=== PATIENT | female | born 1985 | race Caucasian/White ===

== ENCOUNTER 2017-08-18 21:30 | Emergency (ER) | payer MEDICAID, SELFPAY ==
[2017-08-18 21:31] VITALS: BP 106/65; PULSE 89; RESP 16; TEMP 36.6; O2SAT 100; BMI 18.9
[2017-08-18 21:44] VITALS: BP 110/60; PULSE 90; RESP 14; O2SAT 100
--- NOTE | 2017-08-18 22:02 | ED.VISSUMM ---
- ER Visit Summary Date of Service: 08/18/17 Chief Complaint: Left breast pain and lump History of Present Illness: The patient is a 32 F who presents with a painful breast lump. She first noticed some pain yesterday. Today while doing a self breast exam she noticed a lump. No nipple discharge. No overlying redness. No fevers. No history of prior similar symptoms. Physical Examination: Afebrile vitals are unremarkable Heart regular rate and rhythm Lungs are clear There is a roughly 2 cm mobile firm nodule in the left upper quadrant of the breast no fluctuance no overlying erythema no nipple discharge Test Results: Not indicated Emergency Department Course and Treatment: Given that this is firm and mobile within the deep tissue of the breast without any fluctuance or overlying erythema I feel it is unlikely to be abscess. There is no indication for emergent workup here in the emergency department. She was advised of the need for close outpatient follow-up for studies such as mammogram or breast ultrasound. She was advised to call her SOFTWARE QUALITY ASSURANCE ANALYST in the morning. She understands to return for new or worsening symptoms. She was discharged. Treatment Plan: [] Disposition: Discharge Impression: Left breast mass This note was generated with [employer] dictation software. It may contain incorrect words, spelling, and punctuation that were not noted in review of the chart prior to signing ED Disposition - Plan for ED Patient: Chief Complaint: Other, Pain/Inj Referrals: Derek Gomez MD [Primary Care Provider] -
--- NOTE | 2017-08-18 22:05 | ED.DCSUM_ITS ---
- ER Visit Summary Date of Service: 08/18/17 Chief Complaint: Left breast pain and lump History of Present Illness: The patient is a 32 F who presents with a painful breast lump. She first noticed some pain yesterday. Today while doing a self breast exam she noticed a lump. No nipple discharge. No overlying redness. No fevers. No history of prior similar symptoms. Physical Examination: Afebrile vitals are unremarkable Heart regular rate and rhythm Lungs are clear There is a roughly 2 cm mobile firm nodule in the left upper quadrant of the breast no fluctuance no overlying erythema no nipple discharge Test Results: Not indicated Emergency Department Course and Treatment: Given that this is firm and mobile within the deep tissue of the breast without any fluctuance or overlying erythema I feel it is unlikely to be abscess. There is no indication for emergent workup here in the emergency department. She was advised of the need for close outpatient follow-up for studies such as mammogram or breast ultrasound. She was advised to call her WIRE PULLER in the morning. She understands to return for new or worsening symptoms. She was discharged. Treatment Plan: [] Disposition: Discharge Impression: Left breast mass This note was generated with [employer] dictation software. It may contain incorrect words, spelling, and punctuation that were not noted in review of the chart prior to signing ED Disposition - Plan for ED Patient: Chief Complaint: Other, Pain/Inj Referrals: Derek Gomez MD [Primary Care Provider] -
--- NOTE | 2017-08-18 22:05 | ED.DEP ---
ED Disposition - Plan for ED Patient: Chief Complaint: Other, Pain/Inj Instructions: ED Breast Mass Uncertain Cause Referrals: Derek Gomez MD [Primary Care Provider] - Additional Instructions: Follow up with [facility].
[2017-08-18 22:14] VITALS: BP 128/70; PULSE 80; RESP 14; O2SAT 99
== END 2017-08-18 22:16 | disposition home or self-care (01) ==
PROVIDERS: Emergency Provider Emergency Medicine; Family Provider Family Medicine; PCP Family Medicine
DX: N63.20 Unspecified lump in the left breast, unspecified quadrant (principal); J44.9 Chronic obstructive pulmonary disease, unspecified; Z72.0 Tobacco use
CPT/HCPCS: 99282

== ENCOUNTER 2017-08-31 17:05 | Emergency (ER) | payer MEDICAID, SELFPAY ==
[2017-08-31 17:07] VITALS: BP 114/75; PULSE 89; RESP 14; TEMP 36.8; O2SAT 100; BMI 19.1
--- NOTE | 2017-08-31 18:07 | ED.VISSUMM ---
- ER Visit Summary Date of Service: 08/31/17 Chief Complaint: [Dental pain and hole in roof of mouth] History of Present Illness: The patient is a 32 F presents to the emergency department with 2 complaints involving her mouth. Patient has one remaining tooth in her mouth which is a left lower molar that has become tender today. Patient denies any fever. Patient also states that 2 days ago she noticed a small hole in the right upper roof of her mouth. Patient states that every time she drinks water it comes out her nose. Patient denies any trauma to the area. Patient denies any illicit drug use. Patient is never had a similar issue in the past. [] Physical Examination: [HEENT-PERRLA, EOMI. Cranial nerves II through XII grossly intact. TMs clear. Mucous membranes moist. No adenopathy. Patient has a 2 mm perforation of the hard palate behind the right front incisor. Patient has some faint surrounding erythema. Patient also has tenderness palpation over the left lower molar which appears to be carried. No gingival abscess noted. Cardiovascular-regular rate and rhythm without murmur or ectopy Lungs-clear to auscultation, chest wall stable without crepitus or subcu emphysema Abdomen-normoactive bowel sounds, soft, nontender, no rebound or rigidity, no peritoneal signs. Extremities-intact ?4, normal range of motion, normal pulses, atraumatic] Test Results: [None indicated] Emergency Department Course and Treatment: [Case was discussed with Dr. Husam Peña who was on-call for ear nose and throat. Patient has an appointment with their office on the 12th of the month. Dr. Parmar recommended antibiotics and follow-up with their office at scheduled appointment time.] Treatment Plan: [Patient was started on clindamycin and [place] for pain] Disposition: [Discharged to home in stable condition.] Impression: [Dental pain Perforation hard palate] This note was generated with [employer] dictation software. It may contain incorrect words, spelling, and punctuation that were not noted in review of the chart prior to signing ED Disposition - Plan for ED Patient: Chief Complaint: Dental Referrals: Derek Gomez MD [Primary Care Provider] -
--- NOTE | 2017-08-31 18:11 | DCINST.ED_ITS ---
ED Disposition - Plan for ED Patient: Chief Complaint: Dental Instructions: ED Tooth Pain Prescriptions: Hydrocodone Bitart/Apap 5-325 [[place] 5/325] 1 - 2 tab PO Q4H PRN PRN 3 Days #12 tab PRN Reason: Pain Clindamycin HCl [Cleocin] 300 mg PO Q6H #40 cap Referrals: Derek Gomez MD [Primary Care Provider] - Additional Instructions: you have a perforation of your hard palate. Keep your appointment with ENT.
[2017-08-31] MEDS: Clindamycin HCl 150 MG Capsule 300 MG PO (18:14)
[2017-08-31 18:18] VITALS: RESP 18
== END 2017-08-31 18:19 | disposition home or self-care (01) ==
LOC: ED 17:46
PROVIDERS: Emergency Provider Emergency Medicine; Family Provider Family Medicine; PCP Family Medicine
DX: K08.89 Other specified disorders of teeth and supporting structures (principal); J44.9 Chronic obstructive pulmonary disease, unspecified; Z72.0 Tobacco use
CPT/HCPCS: 99282

== ENCOUNTER → 2017-09-08 15:57 | Outpatient (CLI) | payer MEDICAID, SELFPAY | PROVIDERS: Visit Provider Otolaryngology | DX: J32.9 Chronic sinusitis, unspecified (principal) | CPT/HCPCS: 87070; 87077; 87186; 87205 ==

== ENCOUNTER → 2017-09-16 20:44 | Emergency (ER) | payer MEDICAID, SELFPAY | PROVIDERS: Family Provider Family Medicine; PCP Family Medicine | DX: R69 Illness, unspecified (principal) ==

== ENCOUNTER 2018-01-10 21:43 | Emergency (ER) | payer MEDICAID, SELFPAY ==
[2018-01-10 21:44] VITALS: BP 115/74; PULSE 90; RESP 18; TEMP 36.1; O2SAT 98; BMI 18.3
--- NOTE | 2018-01-10 22:44 | ED.VISSUMM ---
- ER Visit Summary Date of Service: 01/10/18 Chief Complaint: Facial abscess History of Present Illness: The patient is a 32 F who presents with a facial abscess that has been getting worse over the past 4 days. Patient states she was able to express some purulent drainage from the abscess area. Patient states the area is more painful today. Patient describes the pain as aching. Patient states the pain is over the left jaw. Patient denies any fevers or chills. Patient states her pain is worse with palpation of the abscess. Patient denies any other symptoms. Patient denies any difficulty breathing or difficulty swallowing. Physical Examination: Vital signs are stable. Patient is afebrile. Patient is in no acute distress. Skin is warm dry. There is a tender indurated area over the left lower mandible. There is no fluctuance noted. There is no active discharge or drainage. Oral mucosa is pink and moist. Oropharynx is clear and airway is patent. Neck is supple trachea is midline. There is no JVD or lymphadenopathy noted. Heart was regular rate and rhythm. Lungs are clear and equal bilaterally. The remaining physical exam is within normal limits. Emergency Department Course and Treatment: Patient was given a dose of clindamycin here. Patient was given a prescription for clindamycin. Patient was instructed to continue using warm compresses. Patient was instructed to follow-up with her primary care physician in 5-7 days. Patient understood and was agreeable with the plan. All questions were answered. Disposition: Discharged home Impression: Facial abscess This note was generated with [employer] dictation software. It may contain incorrect words, spelling, and punctuation that were not noted in review of the chart prior to signing ED Disposition - Plan for ED Patient: Disposition: Home or Assisted Living Chief Complaint: Abscess Diagnosis: Abscess Instructions: ED Staph Infec Abx Tx Only Prescriptions: Clindamycin HCl [Cleocin] 300 mg PO Q6H #40 cap Referrals: Derek Gomez MD [Primary Care Provider] -
[2018-01-10] MEDS: Clindamycin HCl 150 MG Capsule 300 MG PO (23:05)
[2018-01-10 23:07] VITALS: BP 121/74; PULSE 89; RESP 18; O2SAT 100
--- NOTE | 2018-01-10 23:08 | ED.RN ---
THIS NURSE REVIEWED D/C INSTRUCTIONS WITH PT. PT VERBALIZED UNDERSTANDING OF INSTRUCTIONS. PT DENIES FURTHER NEEDS OR QUESTIONS AT THIS TIME. PT AMBULATES FROM ROOM ON OWN WITHOUT ASSISTANCE FROM STAFF
== END 2018-01-10 23:08 | disposition home or self-care (01) ==
PROVIDERS: Emergency Provider Emergency Medicine; Family Provider Family Medicine; PCP Family Medicine
DX: L02.01 Cutaneous abscess of face (principal); B96.89 Other specified bacterial agents as the cause of diseases classified elsewhere; J44.9 Chronic obstructive pulmonary disease, unspecified; Z72.0 Tobacco use
CPT/HCPCS: 99283

== ENCOUNTER 2018-02-02 00:32 | Emergency (ER) | payer MEDICAID, SELFPAY ==
[2018-02-02 00:32] VITALS: BP 99/72; PULSE 72; RESP 18; TEMP 36.5; O2SAT 99; BMI 21.4
--- NOTE | 2018-02-02 01:06 | ED.VISSUMM ---
- ER Visit Summary Date of Service: 02/02/18 Chief Complaint: [Rash] History of Present Illness: The patient is a 32 F [presents with a rash that she noticed when she got out of the tub today. Patient states the rashes on her right thigh. No new soaps or detergents. No new medications. Patient believes it could be ringworm. 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 She has not had any recent illness other than a slight cold.] Physical Examination: [HEENT-PERRLA, EOMI. Cranial nerves II through XII grossly intact. TMs clear. Mucous membranes moist. No adenopathy. Cardiovascular-regular rate and rhythm without murmur or ectopy Lungs-clear to auscultation, chest wall stable without crepitus or subcu emphysema Abdomen-normoactive bowel sounds, soft, nontender, no rebound or rigidity, no peritoneal signs. Skin exam-evaluation of the right medial thigh does reveal a circular lesions ?5 with central clearing consistent with ringworm Extremities-intact ?4, normal range of motion, normal pulses, atraumatic] Test Results: [None indicated] Emergency Department Course and Treatment: [] Treatment Plan: [Patient advised to use Lotrimin to the area and follow-up with primary care physician within next 2 weeks.] Disposition: [Discharged home in stable condition] Impression: [Ringworm dermatitis] This note was generated with [employer] dictation software. It may contain incorrect words, spelling, and punctuation that were not noted in review of the chart prior to signing ED Disposition - Plan for ED Patient: Chief Complaint: Rash Referrals: Derek Gomez MD [Primary Care Provider] -
--- NOTE | 2018-02-02 01:08 | ED.DEP ---
ED Disposition - Plan for ED Patient: Chief Complaint: Rash Instructions: When Your Child Has Ringworm Prescriptions: Clotrimazole [Lotrimin] 1 applicatio TOPICAL BID #1 tube Referrals: Derek Gomez MD [Primary Care Provider] - 10-14 Days if not better
== END 2018-02-02 01:33 | disposition home or self-care (01) ==
LOC: ED 01:29
PROVIDERS: Emergency Provider Emergency Medicine; Family Provider Family Medicine; PCP Family Medicine
DX: B35.8 Other dermatophytoses (principal); J44.9 Chronic obstructive pulmonary disease, unspecified; Z72.0 Tobacco use
CPT/HCPCS: 99282

== ENCOUNTER 2018-03-08 20:17 | Emergency (ER) | payer SELFPAY ==
[2018-03-08 20:18] VITALS: BP 97/70; PULSE 75; RESP 16; TEMP 36.7; O2SAT 98; BMI 20.4
[2018-03-08 20:30] LABS: Bacteria 0 SEEN /hpf (None Seen); Mucous, Urine 0 SEEN /hpf (<or=2+); Red Blood Cells-Urine 0 SEEN /hpf (0-5); White Blood Cells 0 SEEN /hpf (0-5)
[2018-03-08 20:44] LABS: Glucose, Dipstick Normal (Normal); Ketone-Dipstick Negative (Negative); Leukocyte Esterase-Dipstick 25 /ul (Negative); Nitrite-Dipstick Negative (Negative); Occult Blood-Urine Negative /ul (Negative); Protein-Dipstick 15 mg/dl (Negative); Urine Bilirubin Dipstick Negative (Negative); Urine Urobilinogen Normal (Normal)
[2018-03-08 20:45] LABS: Color, Urine Yellow (Yellow); Urine Clarity Clear (Clear)
[2018-03-08 20:53] LABS: Squamous Epithelial Cells - UA 0-5 SEEN /hpf (5-10)
--- NOTE | 2018-03-08 23:01 | ED.VISSUMM ---
- ER Visit Summary Date of Service: 03/08/18 Chief Complaint: Flank pain History of Present Illness: The patient is a 32 F presenting for evaluation secondary to flank pain. Patient reports that since yesterday she had a sudden onset of waxing and waning left-sided flank pain and soup pressure. Patient states that this has no exacerbating relieving factors she is a continuous taste discomfort. She denies any nausea vomiting diarrhea dysuria frequency or hematuria. Patient states that the pain seemed like it got somewhat worse tonight. She reports that she has a history of kidney stones in the past and this feels somewhat similar. Review of systems otherwise negative. Physical Examination: Vital signs are within normal limits, patient is afebrile. General: Patient is well-nourished well-developed and in no acute distress. Head: Normocephalic, atraumatic Eyes: Pupils equal round and reactive bilaterally, extra occular motion intact bialterally ENT: Moist mucous membranes Neck: Supple, no lymphadenopathy, no JVD, no meningismus CVS: Heart regular rate and rhythm, no murmurs, rubs or gallops, radial pulses 2+ bilaterally Resp: Respirations nondistressed, lung sounds clear bilaterally Abdomen: Soft, nontender, nondistended, no palpable masses, normal bowel sounds Back: Minimal tenderness to palpation in the left lumbar paraspinal region. No flank tenderness to percussion or overlying vesicular rash Extremities: Nontender, atraumatic, active full range of motion, no peripheral edema Skin: warm, no rashes, no petechia Neuro: Alert and oriented x 4, CN 2-12 intact, no lateralizing neurological defecits Psyc: Normal affect Test Results: Urinalysis is negative for infection or blood or crystals. Bedside ultrasound demonstrates no evidence of hydronephrosis Emergency Department Course and Treatment: Patient presented for evaluation secondary to flank pain. Urinalysis shows no evidence of RBCs white blood cells crystals or other significant pathology. Bedside ultrasound is negative for hydronephrosis. Patient either has an element of musculoskeletal pain versus she potentially already passed a kidney stone and is experiencing ureteral spasm. She was given a dose of [place] in the emergency department, and will be discharged with a course of Flomax and diclofenac as she does have multiple allergies. Disposition: Discharge Impression: 1. Left flank pain This note was generated with [employer] dictation software. It may contain incorrect words, spelling, and punctuation that were not noted in review of the chart prior to signing ED Disposition - Plan for ED Patient: Disposition: Home or Assisted Living Chief Complaint: Flank Pain Diagnosis: Flank pain Instructions: ED Flank Pain Uncertain Cause Prescriptions: Diclofenac Sodium [Diclofenac Sodium ER] 100 mg PO DAILY #10 tab.er.24h Tamsulosin HCl [Flomax] 0.4 mg PO DAILY #7 cap Referrals: Derek Gomez MD [Primary Care Provider] - 1 Week
--- NOTE | 2018-03-08 23:04 | ED.DCSUM_ITS ---
- ER Visit Summary Date of Service: 03/08/18 Chief Complaint: Flank pain History of Present Illness: The patient is a 32 F presenting for evaluation secondary to flank pain. Patient reports that since yesterday she had a sudden onset of waxing and waning left-sided flank pain and soup pressure. Patient st ates that this has no exacerbating relieving factors she is a continuous taste discomfort. She denies any nausea vomiting diarrhea dysuria frequency or hematuria. Patient states that the pain seemed like it got somewhat worse tonight. She reports that she has a history of kidney stones in the past and this feels somewhat similar. Review of systems otherwise negative. Physical Examination: Vital signs are within normal limits, patient is afebrile. General: Patient is well-nourished well-developed and in no acute distress. Head: Normocephalic, atraumatic Eyes: Pupils equal round and reactive bilaterally, extra occular motion intact bialterally ENT: Moist mucous membranes Neck: Supple, no lymphadenopathy, no JVD, no meningismus CVS: Heart regular rate and rhythm, no murmurs, rubs or gallops, radial pulses 2+ bilaterally Resp: Respirations nondistressed, lung sounds clear bilaterally Abdomen: Soft, nontender, nondistended, no palpable masses, normal bowel sounds Back: Minimal tenderness to palpation in the left lumbar paraspinal region. No flank tenderness to percussion or overlying vesicular rash Extremities: Nontender, atraumatic, active full range of motion, no peripheral edema Skin: warm, no rashes, no petechia Neuro: Alert and oriented x 4, CN 2-12 intact, no lateralizing neurological defecits Psyc: Normal affect Test Results: Urinalysis is negative for infection or blood or crystals. Bedside ultrasound demonstrates no evidence of hydronephrosis Emergency Department Course and Treatment: Patient presented for evaluation secondary to flank pain. Urinalysis shows no evidence of RBCs white blood cells crystals or other significant pathology. Bedside ultrasound is negative for hy dronephrosis. Patient either has an element of musculoskeletal pain versus she potentially already passed a kidney stone and is experiencing ureteral spasm. She was given a dose of [place] in the emergency department, and will be discharged with a course of Flomax and diclofenac as she does have multiple allergies. Disposition: Discharge Impression: 1. Left flank pain This note was generated with [employer] dictation software. It may contain incorrect words, spelling, and punctuation that were not noted in review of the chart prior to signing ED Disposition - Plan for ED Patient: Disposition: Home or Assisted Living Chief Complaint: Flank Pain Diagnosis: Flank pain Instructions: ED Flank Pain Uncertain Cause Prescriptions: Diclofenac Sodium [Diclofenac Sodium ER] 100 mg PO DAILY #10 tab.er.24h Tamsulosin HCl [Flomax] 0.4 mg PO DAILY #7 cap Referrals: Derek Gomez MD [Primary Care Provider] - 1 Week
[2018-03-08] MEDS: HYDROcodone Bitartrate/Apap 5/325 Tablet PO (23:06)
[2018-03-08 23:07] VITALS: BP 101/59; PULSE 68; RESP 14; O2SAT 98
[2018-03-08] MEDS: Tamsulosin HCl 0.4 MG Capsule PO (23:09)
== END 2018-03-08 23:09 | disposition home or self-care (01) ==
LOC: ED 23:07
PROVIDERS: Emergency Provider Emergency Medicine; Family Provider Family Medicine; PCP Family Medicine
DX: R10.9 Unspecified abdominal pain (principal); Z87.442 Personal history of urinary calculi; Z72.0 Tobacco use
CPT/HCPCS: 81001; 99283

== ENCOUNTER 2018-04-21 20:35 | Emergency (ER) | payer SELFPAY ==
[2018-04-21 20:37] VITALS: BP 123/79; PULSE 81; RESP 18; TEMP 36.9; O2SAT 100; BMI 21.4
--- NOTE | 2018-04-21 23:35 | ED.DEP ---
ED Disposition - Plan for ED Patient: Chief Complaint: Abscess Instructions: ED Abscess IandD Prescriptions: Clindamycin [Cleocin] 300 mg PO 4X/DAY #80 capsule Referrals: Derek Gomez MD [Primary Care Provider] -
[2018-04-21] MEDS: Clindamycin HCl 150 MG Capsule 450 MG PO (23:46)
[2018-04-21] MEDS: HYDROcodone Bitartrate/Apap 5/325 Tablet PO (23:46)
[2018-04-21 23:55] VITALS: BP 104/67; PULSE 68; RESP 16; O2SAT 98
--- NOTE | 2018-04-21 23:57 | ED.DCSUM_ITS ---
- ER Visit Summary Date of Service: 04/21/18 Chief Complaint: Abscess left neck History of Present Illness: The patient is a 32 F presenting with abscess to the left side of her anterior neck. It started 4-5 days ago. She just finished a course of Bactrim which she was on for an axillary abscess. The axillary abscess has resolved but the abscess on her neck has not improved. She denies fever or other complaints. Physical Examination: Vitals are stable. Patient is afebrile. Alert no acute distress. HEENT exam is unremarkable. Neck is supple. 3cm fluctuant abscess anterior left neck Lungs are clear and equal bilaterally. Heart is regular rate and rhythm. Extremities are unremarkable. Skin is warm and dry. Remainder of exam is unremarkable. Emergency Department Course and Treatment: I&D was performed. Anesthetized with lidocaine. Incised with 11 blade. Moderate amount of pus was drained. Probed to break up loculations. Irrigated with saline. Patient tolerated this well. She is given clindamycin and a prescription for clindamycin. She is advised to follow up with her primary care physician. Advised return to ED if worsening complaints. Disposition: Discharge home Impression: Abscess left neck, I&D This note was generated with [employer] dictation software. It may contain incorrect words, spelling, and punctuation that were not noted in review of the chart prior to signing ED Disposition - Plan for ED Patient: Chief Complaint: Abscess Instructions: ED Abscess IandD Prescriptions: Clindamycin [Cleocin] 300 mg PO 4X/DAY #80 capsule Referrals: Derek Gomez MD [Primary Care Provider] -
== END 2018-04-21 23:58 | disposition home or self-care (01) ==
PROVIDERS: Emergency Provider Emergency Medicine; Family Provider Family Medicine; PCP Family Medicine
DX: L02.11 Cutaneous abscess of neck (principal); Z72.0 Tobacco use
CPT/HCPCS: 10060; 99283; A4216

== ENCOUNTER 2018-09-13 15:27 | Emergency (ER) | payer MEDICAID, SELFPAY ==
[2018-09-13 15:28] VITALS: BP 107/63; PULSE 74; RESP 15; TEMP 36.9; O2SAT 95; BMI 22.0
--- NOTE | 2018-09-13 15:45 | RAD_ITS ---
STUDY: X-RAY - LEFT FOOT CLINICAL: Female, 33 years old. Pain and swelling. TECHNIQUE: 3 view(s) of the foot. COMPARISON: Comparison is made with prior study of October 27, 2012. FINDINGS: Normal talus, calcaneus, and tarsal bones. Normal visualized subtalar, talonavicular, calcaneocuboid, tarsal and tarsometatarsal articulations. Normal metatarsi. Normal metatarsophalangeal joint of the great toe. Normal tibial and fibular sesamoid bones. Normal interphalangeal joint of the great toe. Normal phalanges of the great toe. Normal second through fifth metatarsophalangeal joints. Normal interphalangeal joints and phalanges of the lesser toes. The soft tissue structures are unremarkable. RAD/Foot min 3 Views IMPRESSION: Normal x-ray examination of the foot. Electronically Signed: Mairno Miller, at 15:58 EDT , Service support ,
--- NOTE | 2018-09-13 16:28 | ED.VISSUMM ---
- ER Visit Summary Date of Service: 09/13/18 Chief Complaint: Pain History of Present Illness: The patient is a 33 F with pain in her left foot. The patient noticed this today when she woke up. She has not had this pain before. Denies any inciting events. The pain is at the bottom of her left foot near the base of her second toe. She has noted some swelling to the area. No other swelling or pain. No fever or systemic symptoms. She does have a history of opioid abuse, but does not ever use IV. Denies any history of gout or septic joint. Denies any history of trauma or skin breaks. Physical Examination: Inspection is unremarkable. There is some very mild swelling to her plantar foot near the base of the second toe. Patient has mild increase in pain with movement of the second toe, but I can range the toe. Skin is intact. She is neurovascular intact. The remainder of her lower extremity exam is unremarkable. Good pulses and capillary refill. Test Results: X-rays are negative. Emergency Department Course and Treatment: X-rays are negative. Nothing to suggest fracture or other bony pathology. Nothing to suggest ischemia or circulation problem. Nothing to suggest DVT. Nothing to suggest infection. No foreign bodies visualized. Skin is intact. Patient may have osteoarthritis. I am also concerned for gout. After discussion with the patient, we will treat her with crutches, rest, prednisone, and naproxen. Monitor for signs of new or worsening issues. Monitor for signs of infection at home. Return right away for any problems. Treatment Plan: As above Disposition: Discharge Impression: 1. Left foot pain This note was generated with [employer] dictation software. It may contain incorrect words, spelling, and punctuation that were not noted in review of the chart prior to signing ED Disposition - Plan for ED Patient: Referrals: Derek Gomez MD [Primary Care Provider] -
--- NOTE | 2018-09-13 16:31 | ED.DEP ---
ED Disposition - Plan for ED Patient: Instructions: ED Crutch Walking Prescriptions: Naproxen [Naprosyn] 500 mg PO BID PRN #20 tab Prednisone 10 mg PO UD #33 tab Referrals: Derek Gomez MD [Primary Care Provider] -
[2018-09-13 16:53] VITALS: RESP 18
[2018-09-13] MEDS: Naproxen 500 MG Tablet PO (16:53)
[2018-09-13] MEDS: predniSONE 20 MG Tablet 40 MG PO (16:53)
== END 2018-09-13 16:54 | disposition home or self-care (01) ==
LOC: ED 16:42
PROVIDERS: Emergency Provider Emergency Medicine; Family Provider Family Medicine; PCP Family Medicine
DX: M79.672 Pain in left foot (principal); F11.10 Opioid abuse, uncomplicated
CPT/HCPCS: 73630; 99284

== ENCOUNTER 2018-09-22 22:29 | Emergency (ER) | payer MEDICAID, SELFPAY ==
[2018-09-22 22:29] VITALS: BP 116/72; PULSE 98; RESP 18; TEMP 37.2; O2SAT 100; BMI 22.0
--- NOTE | 2018-09-22 22:39 | EKG12_ITS ---
Test Reason : CP Blood Pressure : / mmHG Vent. Rate : 076 BPM Atrial Rate : 076 BPM P-R Int : 154 ms QRS Dur : 084 ms QT Int : 366 ms P-R-T Axes : 043 074 031 degrees QTc Int : 411 ms Normal sinus rhythm Possible Left atrial enlargement Nonspecific ST Segment Abnormality Borderline ECG Confirmed by CLARENCE MEDINA, JARETT ([id number]), acquisitions editor ROHINI STACK ([id number]) on 09/25/2018 3:35:23 PM Referred By: PORTER Confirmed By:JARETT LIMA MD
[2018-09-22 23:57] LABS: Absolute Lymphocyte Count 1.78 X10^3/ul (0.83-4.51); Absolute Neutrophil Count 9.2 X10^3/uL (2.0-7.7); Basophil# 0.02 X10^3/uL; Basophil% 0.2 % (0-1); Eosinophils% 0.8 % (0-5); Hematocrit 42.1 % (37-47); Hemoglobin 14.9 g/dl (12.0-15.0); Lymphocyte # 1.78 X10^3/ul (4.0); Lymphocyte % 14.8 % (19-41); Mean Corp Hgb Conc 35.4 g/gl (32-36); Mean Corpuscular Hgb 33.5 pg (27.0-32.0); Mean Corpuscular Volume 94.6 fL (81-99); Mean Platelet Vol. 11.5 fl (6.2-12.0); Monocyte% 7.5 % (0-10); Neutrophil % 76.5 % (47-70); Platelet Count 160 K/mm3 (150-450); RBC Distribution Width SD 40.8 fl (35.1-43.9); Red Blood Count 4.45 M/mm3 (4.2-5.4)
[2018-09-23 00:03] LABS: POSITIVE COUNT NO; POSITIVE DIFFERENTIAL NO; POSITIVE MORPHOLOGY NO
[2018-09-23 00:07] LABS: Internal QC Validated? YES +Cl - CLEAR BKGD; Pregnancy, Serum, hCG Quali. NEGATIVE Negative
[2018-09-23] MEDS: 0.9% Normal Saline 1,000 ML 1000 ML IV (00:23)
--- NOTE | 2018-09-23 00:41 | ED.VISSUMM ---
- ER Visit Summary Date of Service: 09/23/18 Chief Complaint: Abdominal pain History of Present Illness: The patient is a [address] Gomez. She reports that at 8 PM she ate a piece with meats multiple different kinds of meat and vegetables on it. Proximally 1 hour later she had the onset of an epigastric pain. States that it gradually got worse. Is a sharp pain it was 9-10 at worst she is pain-free currently. States that the pain resolved after she vomited. It was worsened by the active vomiting itself. States that she is vomited 8 times. No blood or emesis. She denies any prior history of spicy or fatty food intolerance. Patient denies diarrhea. Her last bowel was today. No melena or hematochezia. No dysuria frequency. No fever chills. Physical Examination: Vitals: Stable. Afebrile. General: Well-nourished and well-developed. Head: Normocephalic atraumatic. Neck: Supple, no lymphadenopathy. No JVD. Nontender. Cardiovascular: Regular rate and rhythm. No murmurs. Respiratory: No respiratory distress. Clear to auscultation bilaterally. Abdominal: Soft, nontender, nondistended, normal bowel sounds. No guarding, rebound, or peritoneal signs. Specifically no tenderness palpation the right upper quadrant. Negative Fletcher sign. Back: Nontender. Extremities: Nontender, no edema. Skin: Normal color, no rash. Neurologic: Alert and oriented ?3. Cranial nerves II through XII are intact. Normal strength and sensation. Psych: Normal affect. Test Results: CBC is remarkable for a white count of 12 with 77 segmented neutrophils and 15 lymphocytes. Chem-7 is normal. LFTs showed AST 46. Lipase is normal. Emergency Department Course and Treatment: Patient has remained pain-free while here. She is resting comfortably. Treatment Plan: I had a prolonged discussion the patient about this episode. I suspect that she does have biliary colic. However she has eaten within 2 hours of arrival to the emergency department. I feel that she is a suitable candidate for further outpatient evaluation including ultrasound. She will be discharged instructions to follow-up with Dr. Gomez as soon as possible. She is instructed to follow a low-fat diet until that time. She is also given the phone number of Dr. Chaidez who is on-call for surgery. Return to the emergency department for any worsening symptoms. Disposition: To home in improved and stable condition. Impression: 1. Abdominal pain, resolved. This note was generated with [employer] dictation software. It may contain incorrect words, spelling, and punctuation that were not noted in review of the chart prior to signing ED Disposition - Plan for ED Patient: Disposition: Home or Assisted Living Instructions: ED Abdominal Pain Gallstone Poss Prescriptions: Ondansetron [Zofran Odt] 4 mg PO Q8H PRN PRN #10 tablet PRN Reason: Nausea Referrals: Derek Gomez MD [Primary Care Provider] - As soon as possible Alexey Chaidez MD [STAFF PHYSICIAN] -
[2018-09-23 00:45] LABS: AST(SGOT) 46 U/L (15-37); Alanine Aminotransfer ALT/SGPT 34 U/L (13-56); Albumin, Serum 3.9 g/dL (3.2-5.0); Alkaline Phosphatase 67 U/L (45-117); Anion Gap 7 (5-15); BUN 14 mg/dL (7-18); BUN/Creat Ratio 21.2 RATIO (10-20); Calcium,Total 8.7 mg/dL (8.5-10.1); Chloride 104 mmol/L (98-107); Creatinine, Serum 0.66 mg/dL (0.55-1.02); EST Glomerular Filtration Rate 109 mL/min (>60); Est Glom Filt Rate - Afr Amer 132 mL/min (>60); Estimated Creatinine Clearance 121.16 ml/min; Glucose 96 mg/dL (74-106); Lipase 151 U/L (73-393); Potassium 3.5 mmol/L (3.5-5.1); Protein, Total 7.9 g/dL (6.4-8.2); Sodium Level 139 mmol/L (136-145)
[2018-09-23 01:00] VITALS: BP 90/62; PULSE 62; RESP 16
== END 2018-09-23 01:00 | disposition home or self-care (01) ==
PROVIDERS: Emergency Provider Emergency Medicine; Family Provider Family Medicine; PCP Family Medicine
DX: R10.13 Epigastric pain (principal); Z72.0 Tobacco use
CPT/HCPCS: 36415; 80053; 83690; 84703; 85025; 93005; 96360; 99285; J7030; A4216

== ENCOUNTER 2018-10-24 12:22 | Emergency (ER) | payer MEDICAID, SELFPAY ==
[2018-10-24 12:22] VITALS: BP 106/69; PULSE 86; RESP 17; TEMP 36.7; O2SAT 98; BMI 20.5
--- NOTE | 2018-10-24 14:29 | RAD_ITS ---
STUDY: X-RAY - LEFT FOOT CLINICAL: Female, 33 years old. Swollen and redness following injury. TECHNIQUE: History view(s) of the foot. COMPARISON: None. FINDINGS: Normal talus, calcaneus, and tarsal bones. Normal visualized subtalar, talonavicular, calcaneocuboid, tarsal and tarsometatarsal articulations. Normal metatarsi. Normal metatarsophalangeal joint of the great toe. Normal tibial and fibular sesamoid bones. Normal interphalangeal joint of the great toe. Normal phalanges of the great toe. Normal second through fifth metatarsophalangeal joints. Normal interphalangeal joints and phalanges of the lesser toes. No radiopaque foreign body is present. RAD/Foot min 3 Views IMPRESSION: Normal x-ray examination of the foot. Electronically Signed: Marino Miller, at 14:58 EDT , Service support ,
--- NOTE | 2018-10-24 15:18 | ED.VISSUMM ---
- ER Visit Summary Date of Service: 10/24/18 Chief Complaint: Foot injury History of Present Illness: The patient is a 33 F who states that yesterday while walking in sandals a small branch off of the branch punctured her left foot in the webspace in between the left great toe and the second toe. She cleaned the wound. She states that she does not believe any piece of the wood came off. She notes that today the foot is red and painful. Physical Examination: Afebrile vital signs are stable Gen: Well-nourished well-developed Head: Normocephalic atraumatic Eyes: Perrl EOMI ENT: TMs clear no rhinorrhea moist mucous membranes Neck: Supple no lymphadenopathy no JVD nontender CVS: Regular rate rhythm no murmurs normal S1-S2 Respiratory: No distress clear to auscultation bilaterally chest nontender Abdomen: Soft nontender nondistended normal bowel sounds no masses Back: Nontender Extremity: The dorsum of the left foot is swollen with erythema and increased warmth. There is no lymphangitic streaking. There is a puncture wound in the webspace between the great toe and the second toe. There is some failure scab formation. I remove the scab and was able to express pus. Skin: Normal color no rash Neuro: alert orientated ?3 CN II-XII intact normal strength sensation reflexes gait cerebellar Psych: Normal affect normal mood Test Results: X-rays revealed no obvious foreign body or gas formation. Wound culture was obtained Emergency Department Course and Treatment: I spoke with podiatry Dr. Membreno. They will follow-up with the patient. I am going to place her on Keflex until cultures are back. Return if worsening or concerns Impression: 1. Cellulitis of the left foot This note was generated with [employer] dictation software. It may contain incorrect words, spelling, and punctuation that were not noted in review of the chart prior to signing ED Disposition - Plan for ED Patient: Disposition: Home or Assisted Living Instructions: ED Infec Skin Cellulitis Prescriptions: Cephalexin [Keflex] 500 mg PO Q6 #40 capsule Referrals: Carley Membreno DPM [STAFF PHYSICIAN] - As soon as possible
[2018-10-24] MEDS: Cephalexin 250 MG Capsule 500 MG PO (15:32)
--- NOTE | 2018-10-24 15:36 | ED.RN ---
PT REFUSED CRUTCHES STATES SHE HAS SOME AT HOME
== END 2018-10-24 15:36 | disposition home or self-care (01) ==
PROVIDERS: Emergency Provider Emergency Medicine; Family Provider Family Medicine; PCP Family Medicine
DX: L03.116 Cellulitis of left lower limb (principal); S91.332A Puncture wound without foreign body, left foot, initial encounter; W26.8XXA Contact with other sharp object(s), not elsewhere classified, initial encounter; Y93.01 Activity, walking, marching and hiking; Y92.9 Unspecified place or not applicable; Z72.0 Tobacco use
CPT/HCPCS: 73630; 87070; 87077; 87186; 87205; 99283

== ENCOUNTER 2018-10-26 13:07 | Inpatient (IN) | payer MEDICAID, SELFPAY ==
[2018-10-26] VITALS (8 sets, daily range): BP systolic 82–94; BP diastolic 48–58; PULSE 52–69; RESP 14–18; TEMP 36.1–37.5; O2SAT 96–100; BMI 20.6; BMI 20.5
--- NOTE | 2018-10-26 13:47 | HP.PCM_ITS ---
Problem List (1) Left foot infection Status: Acute (2) Foreign body foot/toe Status: Acute (3) Left foot pain Status: Acute History of Present Illness Date of Admission: 10/25/18 Chief Complaint: left foot infection The patient is a 33 year old F [facility] earlier today for left foot infection. The injury onset was October 23, 2018. She sustai fatou an injury where a stick punctured into her left first webspace was she was walking while wearing flip-flops sandals. Her pain is sharp and rated as 8/10. She presented to the emergency room her initial date of injury in which the site was irrigated and she was started on antibiotics, cephalexin. She denies current fever, chill, nausea, vomiting, loss of appetite. Her foot is now more swollen, red, and painful. She is unable to bear weight. She presents with crutches and a sandal today. 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 Smoking Status: Current every day smoker - 1 PPD Alcohol: Occasional - social Drugs: None - *Family History Maternal History Items: Hypertension Paternal History Items: Hypertension Review of Systems Constitutional: Denies: Chills, Fever HEENT: Denies: Head Aches, Hearing Changes, Nasal Congestion, Sinus Congestion, Sinus Drainage, Sore Throat, Visual Changes Cardiovascular: Denies: Chest Pain, Claudication, Edema, Orthopnea, Palpitations Respiratory: Denies: Cough, Shortness of breath at rest Gastrointestinal: Denies: Abdominal Pain, Constipation, Diarrhea, Nausea, Melena, Vomiting Genitourinary: Denies: Dysuria, Hematuria, Incontinence, Retention Gynecological: Denies: Breast symptoms Musculoskeletal: Reports: Foot Pain. Denies: Joint Pain, Joint Tenderness, Leg Pain Skin: Denies: Rash, Wounds Neurological: Denies: Numbness, Tingling, Focal weakness Psychiatric: Denies: Anxiety, Depression Hematologic/ Lymphatic: Reports: Easy Bruising. Denies: Easy Bleeding, Hx of blood clot VTE Information - Inpt Only VTE Present on Admission: No VTE Mechan Device Prophylaxis: SCD's VTE Pharm Prophylaxis ordered?: No Reason prophylaxis not ordered:: Treatment Not Indicated Patient Problems: Active and Suspected Problems (Last Updated 10/26/18 @ 14:38 by Carley Membreno DPM) Left foot infection (Acute) Foreign body foot/toe (Acute) Left foot pain (Acute) - Physical Exam General: Alert, Oriented x3, Cooperative HEENT: Atraumatic, PERRLA, EOMI, Normocephalic Neck: Supple, No JVD Lungs: Clear to auscultation, Normal air movement, No wheeze Cardiovascular: Regular rate Abdomen: Soft, Non Tender, No hernias noted Extremities: No edema, Capillary Refill Less than 3 Seconds, Edema - left foot, Peripheral Pulses Normal - 2/4 pt and dp Skin: - - Puncture wound medial left second toe with a sending cellulitis to entire foot dorsum with induration and crepitus on palpation to the dorsal forefoot. There is purulence on expression Musculoskeletal: No Tenderness to Palpation of Joints or Extremities, Muscle Wasting, - - Pain to touch left foot dorsum particularly at the second metatarsal phalangeal joint Neurological: Cranial nerves II-XII grossly intact, Sensory exam intact to light touch and pain, Coordination normal Psych/Mental Status: Normal Affect, Appropriate Body Mass Index (BMI) 20.5 Assessment/Plan All Active Problems (Last Updated 10/26/18 @ 14:38 by Carley Membreno DPM) Left foot infection (Acute) Foreign body foot/toe (Acute) Left foot pain (Acute) Left foot infection secondary to foreign body failed conservative care including previous oral antibiotics and emergency room irrigation Other comorbidities: COPD, history of cancer, anxiety, history of drug abuse, tobacco user Left foot pain Signs of early sepsis noted: hypotension and low grade fever noted I reviewed and discussed her case. Her x-rays were reviewed without soft tissue emphysema acute fracture dislocation or visualized radiographic foreign body. It is noted she has failed previous irrigation and oral antibiotic use. Her cultures growing E. coli. I recommend continuing on Zosyn while in house and I do also recommend an incision and drainage with possible arthrotomy of the second metatarsophalangeal joint. Her surgical consents were obtained today in clinic. The preoperative indications, planned procedure, possible benefits, risks, complications, anticipated healing commands were discussed in detail with the patient. She understands and elects to proceed with surgery at this time. She understands this may be a staged procedure. I answered her questions. No guarantees were made. Infectious disease consultation will be greatly appreciated. I did also discuss this case with hospitalist, Dr. Zimmerman, who was asked to be on consultation for medical management and for preoperative evaluation. Her CBC is noted with elevated white blood cell count. Her CMP was also reviewed from yesterday. I do recommend an additional EKG prior to proceeding with surgery; result pending. This case will be added on as an urgent procedure at this evening and she will remain n.p.o. at this time. Fluids started. She will obtain Tylenol and potential anti-inflammatory medications for pain control. She refuses narcotic medicine due to her previous abuse habits. She relates she has been clean for 13 months. She will remain heel weightbearing with a surgical shoe in place at this time. I will continue to follow her closely while in house. Please not hesitate to call if you have any questions. Carley Membreno DPM, [facility] [phone]
--- NOTE | 2018-10-26 14:33 | EKG12_ITS ---
Test Reason : PREOP Blood Pressure : / mmHG Vent. Rate : 053 BPM Atrial Rate : 053 BPM P-R Int : 160 ms QRS Dur : 086 ms QT Int : 430 ms P-R-T Axes : 039 070 037 degrees QTc Int : 403 ms Sinus bradycardia with marked sinus arrhythmia Otherwise normal ECG When compared with ECG of 22-SEP-2018 22:39, No significant change was found Confirmed by DORA MEDINA, TALIA ([id number]), news videotape editor ROHINI STACK ([id number]) on 11/03/2018 8:20:23 AM Referred By: Carley Membreno Confirmed By:TALIA JOHN MD
[2018-10-26 14:49] LABS: Erythrocyte Sedimentation Rate 24 mm/hr (0-20)
--- NOTE | 2018-10-26 15:46 | PN_ITS ---
Patient Problems: Active and Suspected Problems (Last Updated 10/26/18 @ 14:38 by Carley Membreno DPM) Left foot infection (Acute) Foreign body foot/toe (Acute) Left foot pain (Acute) Subjective: Consult for medical management: 33 y/o female with reported history of COPD, history of cervical cancer status post LEEP, bipolar, who comes in with complaints of left foot pain, redness and drainage ongoing for about 3 days. Patient sustained an injury to her left first webspace when she stepped on a stick which punctured into her skin. She denied any fever or chills or dizziness or chest pain no nausea vomiting. She presented to the podiatry office and is being admitted for I&D. 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 Her pain is tolerable now for her. X-ray of the foot done on 10/24/18 showed normal findings. Foreign body seen. Cultures done on 10/24/18 is growing E. coli and gram-negative justin, pansensitive Vitals/I&O's: Vital Signs Temp Pulse Resp BP Pulse Ox 99.5 F H 59 L 18 86/52 L 100 10/26/18 15:11 10/26/18 15:11 10/26/18 15:11 10/26/18 15:11 10/26/18 15:11 Oxygen Delivery Method Room Air Weight: 59.421 kg Body Mass Index (BMI) 20.5 General: Alert, Oriented x3, Cooperative, No apparent distress HEENT: Atraumatic, PERRLA, EOMI, Normocephalic Oral: Moist Mucosa Neck: Supple Lungs: Clear to auscultation, Normal air movement Cardiovascular: Regular rate, Regular Rhythm, Normal S1, Normal S2, No murmurs Abdomen: Bowel Sounds Present, Soft, Non Tender, Non-Distended, No Hepato- splenomegaly Extremities: Edema - +1 of left foot, dressing intact Skin: - - see podiatry note as wound was dressed up at the time of exam. Musculoskeletal: Tenderness - to left Lymphatic: No Cervical, Supraclavicular, or Inguinal Adenopathy Neurological: Cranial nerves II-XII grossly intact, Neuro grossly intact Psych/Mental Status: Normal Affect, Appropriate Laboratory Results 10/26/18 14:15: ESR 24 H Current Medications Acetaminophen (Tylenol) 650 mg PO Q6H PRN PRN PRN Reason: Mild Pain (1-3)/Temp > 100.7 F Docusate Sodium (Colace) 100 mg PO BID PRN PRN PRN Reason: Constipation Piperacillin Sod/Tazobactam (Sod 3.375 gm/ Sodium Chloride) 50 mls @ 12.5 mls/hr IV Q8 SOCRATES Ondansetron HCl (Zofran) 4 mg IV Q8H PRN PRN PRN Reason: NAUSEA/VOMITING Medical Necessity - Tobacco Use Smoking Status: Current every day smoker - 1 PPD Tobacco Use: Cigarettes Assessment/Plan All Active Problems (Last Updated 10/26/18 @ 14:38 by Carley Membreno DPM) Left foot infection (Acute) Foreign body foot/toe (Acute) Left foot pain (Acute) 33 y/o female with reported history of COPD, history of cervical cancer status post LEEP, bipolar disorder who comes in with complaints of left foot pain, redness and drainage ongoing for about 3 days. 1. E. Coli infected puncture wound with cellulitis, signs of sepsis seen, on IV Zosyn Going for I&D and irrigation today by podiatry We will continue to follow, recommend Tylenol scheduled as well as ibuprofen as needed as patient is a recovering heroin addict and does not want any narcotic medication, wound management per podiatry 2. COPD, no signs of acute exacerbation, will put on as needed breathing treatments 3. History of cervical cancer status post LEEP 4. Bipolar disorder, not on meds 5. DVT PPx- Early ambulation Code Visit Inpatient E&M: 43129 Subs Hosp L2
[2018-10-26] MEDS: 0.9% Normal Saline 1,000 ML 80 ML IV (17:45)
[2018-10-26 18:09] LABS: AST(SGOT) 15 U/L (15-37); Alanine Aminotransfer ALT/SGPT 16 U/L (13-56); Albumin, Serum 4.2 g/dL (3.2-5.0); Alkaline Phosphatase 85 U/L (45-117); Bilirubin, Direct 0.17 mg/dL (0.00-0.30); Protein, Total 9.2 g/dL (6.4-8.2)
[2018-10-26 18:23] LABS: International Normalized Ratio 1.3; Prothrombin Time (Protime)PT. 15.9 SECONDS (11.7-14.9)
--- NOTE | 2018-10-26 21:00 | NURSING ---
report given to or for pt surgery
[2018-10-26 21:29] LABS: Internal QC Validated? YES +Cl - CLEAR BKGD; Pregnancy, Urine Negative Negative
[2018-10-26] MEDS: Bupivacaine Mpf 0.5% 30 ML VIAL (22:50)
--- NOTE | 2018-10-26 23:07 | PCM.OPRPT ---
Problem List (1) Left foot infection Status: Acute (2) Foreign body foot/toe Status: Acute (3) Left foot pain Status: Acute Report of Operation Date of Procedure: 10/26/18 Pre-Operative Diagnosis: Infected left foot with puncture wound and foreign body Post-Operative Diagnosis: Infected left foot with puncture wound and foreign body Surgery/Procedure Performed:: Incision and drainage with removal foreign body left foot Description of Surgical Findings:: Hemostasis: Left ankle tourniquet 250 mmHg, 5 minutes Findings: 5 cc of purulent drainage, wood sliver measures 2.2 cm in length and 0.6 cm in width, hemostasis controlled and no additional necrotic or purulent tissue noted after debridement irrigation Materials: 3-0 nylon, Betadine soaked gauze Complications: None Specimen sent to microbiology The patient tolerated the procedure and anesthesia well. She was transferred to the PACU vital signs stable vascular status intact to left lower extremity. She will place weight on her heel in a surgical shoe and use crutches for assistance. She will continue on IV antibiotics. Microbiology specimen results are pending. Postoperative orders were entered electronically. I will continue to follow her closely. gradall operator: none - surgeon: Carley Membreno DPM Type of Anesthesia:: General, Local - Preoperative: 20 cc of 1: 1 mixture of 1% lidocaine plain and 0.5% Marcaine plain administered in typical left ankle block fashion proximal to the cellulitis area Postoperative: 10 cc of the same mixture administered in a proximal second ray block fashion proximal to cellulitis area Specimen's removed: Soft tissue puncture wound and foreign body sent to microbiology for aerobic, anaerobic, acid-fast, fungal Description of Procedure: Indications: 33-year-old female with significant past medical history of COPD, previous heroin abuse, current tobacco user, history of cervical cancer, depression and anxiety sustained a foreign body injury while she was walking in flip-flops 3 days ago. A stick entered her first webspace and she had continued pain, foul drainage, and redness to the foot. She was previously treated in the emergency room in which a drainage procedure and she was placed on Keflex. Her condition continued to get worse and she is unable to bear weight. The redness is now streaking to the level of the ankle. X-rays were negative for soft tissue emphysema or retained foreign body or acute fracture. Clinically she has neurovascular status intact. She also has indurated dorsal second metatarsal phalangeal joint area that is an intense erythema. There is purulence on expression coming from the site and pain with passive motion of the second metatarsal phalangeal joint. Her compartments remain soft. Her preoperative diagnostic data was reviewed with leukocytosis noted. There are no other gross abnormalities. Her EKG preoperative also appeared to be normal with some mild bradycardia that seems to be asymptomatic. She was seen preoperatively as well for medical management by hospitalist physician which is greatly appreciated. The preoperative indication, planned procedure, possible benefits risks, complications, and anticipated healing time management were discussed in detail with patient. She understands and elects to proceed with surgery at this time. No guarantees were made. She understands risks and complications may include but are not limited following: pain, swelling, numbness, continued infection, delayed or nonhealing, need for further surgery, allergic reaction, blood clot, loss of limb, function, life. Answered all of her questions. The surgical consent and limb were signed. Procedure detail: The patient was transferred to the operating room via cart and placed on the operating table in the supine position. Final verification of the patient, limb designation, and planned procedure was confirmed with the timeout procedure. IV antibiotics have already been administered on the floor including Zosyn. General anesthesia was initiated by the anesthesia team. Local anesthetic was administered by the podiatry team as noted. A well-padded pneumatic left ankle tourniquet was applied. The left lower extremity was prepped and draped in the usual aseptic manner and surgery began as the following: Attention was directed to the puncture wound site to the medial proximal left second toe in which a hemostat was entered and 5 cc of purulent drainage was expressed. [place] examination was performed at this time and the tourniquet was inflated to allow improved visualization. A 15 blade was used to make a curvilinear incision that extended to the dorsal second metatarsophalangeal joint and distally along the medial second toe. Blunt dissection was performed to the capsular layer and care was taken to identify, protect, retract all neurovascular structures at this point and throughout the remainder of surgery. There was minimal necrotic tissue noted and once purulence was drained there was a remaining stick or plant sliver-like structure. This was removed and sent to microbiology along with the soft tissue. Copious saline irrigation was performed. Next a clean 15 blade was used to make a stab incision into the second metatarsophalangeal joint and the dorsal aspect adjacent to the initial infected area and there was no purulence or deep necrosis noted to the joint. Copious irrigation was performed again and no additional purulence was appreciated. The tourniquet was deflated and no pulsatile bleeding was noted minimal electrocauterization and pressure was applied to maintain hemostasis. Minimal retention sutures were placed with 3-0 nylon. And a Betadine soaked with gauze was placed centrally into the remaining wound. Additional gauze and a Kerlix were applied as a dressing and this was further secured in place with an [place] wrap. It is noted all of her digits have brisk capillary refill time and there is no pulsatile bleeding noted during the procedure or after the procedure. After procedure: The patient tolerated the procedure anesthesia well. She will be transferred back to the regular medicine surgical floor. She will be advised to keep her dressing clean, dry, and intact until follow-up visit tomorrow. She will continue on IV antibiotics and infectious disease was also consulted due to her lack of improvement in outpatient setting. She demonstrated previous E. coli growth and gram-negative bacteria growth. Blood cultures are also pending; negative so far. She will be monitored for early signs of sepsis. It is noted that she has hypotension however she reports her blood pressure does run low usually. In combination with her leukocytosis, this will continue to be monitored overnight and she will continue on IV fluids. Medical management per primary team is greatly appreciated. To elevate and ice for pain control. It is noted she is refusing narcotic pain medicine for pain control. She was given Toradol during the surgical process which will help with inflammation and pain. Her local anesthetic block should also help her throughout the night. She also has oral NSAID and Tylenol ordered for additional pain control if needed. She was advised on smoking cessation to optimize healing. She understands this may be a staged procedure in which delayed primary closure or further washout may be warranted pending her clinical response. All of her postoperative orders were entered electronically. Carley Membreno DPM, [facility] - Admit VTE Documentation VTE Present on Admission: No VTE Mechan Device Prophylaxis: SCD's VTE Pharm Prophylaxis ordered?: No Reason prophylaxis not ordered:: Procedure Not Indicated
[2018-10-27] VITALS (7 sets, daily range): BP systolic 75–91; BP diastolic 38–51; PULSE 52–69; RESP 14–16; TEMP 36.6–37.2; O2SAT 96–99
[2018-10-27] MEDS: Acetaminophen 500 MG Tablet 1000 MG PO ×2 (04:14→13:31)
--- NOTE | 2018-10-27 08:01 | PCM.PN.HOSP ---
Patient Problems: Active and Suspected Problems (Last Updated 10/26/18 @ 14:38 by Carley Membreno DPM) Left foot infection (Acute) Foreign body foot/toe (Acute) Left foot pain (Acute) Subjective: Injury from stepping on a stick. She is up-to-date on her tetanus. She was taken to the OR yesterday for a washout. She states that the pain is controlled. She has been hypotensive however she states that she is usually in the 80s to 90s, and she is not currently symptomatic with lightheadedness or dizziness. Vitals/I&O's: Vital Signs Temp Pulse Resp BP Pulse Ox 98.6 F 58 L 16 79/40 L 98 10/27/18 05:47 10/27/18 05:47 10/27/18 05:47 10/27/18 05:47 10/27/18 05:47 Oxygen Delivery Method Room Air Weight: 131 lb Body Mass Index (BMI) 20.5 Intake and Output for Last 24 Hours 10/25/18 10/26/18 10/27/18 23:59 23:59 23:59 Intake Total 1327 / 1327 952 / 952 Output Total 300 / 300 Balance 1327 / 1327 652 / 652 General: Alert, Oriented x3, Cooperative, No apparent distress HEENT: Atraumatic, PERRLA, EOMI, Normocephalic Oral: Moist Mucosa Neck: Supple, No JVD Lungs: Clear to auscultation, Normal air movement, No rhonchi, No wheeze, No rales Cardiovascular: Regular rate, Regular Rhythm, Normal S1, Normal S2, No murmurs Abdomen: Soft, Non Tender, Non-Distended, No Hepato-splenomegaly Extremities: No edema, Capillary Refill Less than 3 Seconds Skin: Ulcer/ Wound - Dressing intact Neurological: Neuro grossly intact, Sensory exam intact to light touch and pain Psych/Mental Status: Normal Affect, Appropriate Laboratory Results 10/26/18 14:15: ESR 24 H 10/26/18 14:15: Total Bilirubin 0.60, Direct Bilirubin 0.17, AST 15, ALT 16, Alkaline Phosphatase 85, Total Protein 9.2 H, Albumin 4.2, Globulin 5.0 H 10/26/18 18:05: PT 15.9 H, INR 1.3, APTT 33.0 10/26/18 21:10: Urine Test Negative Current Medications Acetaminophen (Tylenol) 1,000 mg PO Q8H PRN PRN PRN Reason: Mild Pain (1-3)/Temp > 100.7 F Last Admin: 10/27/18 04:14 Dose: 1,000 mg Albuterol Sulfate (Ventolin Aerosols) 2.5 mg INHALATION Q2H PRN PRN PRN Reason: SOB &/OR WHEEZING Docusate Sodium (Colace) 100 mg PO BID PRN PRN PRN Reason: Constipation Hydroxyzine Pamoate (Vistaril Pamoate Capsule) 25 mg PO TID PRN PRN PRN Reason: ANXIETY Piperacillin Sod/Tazobactam (Sod 3.375 gm/ Sodium Chloride) 50 mls @ 12.5 mls/hr IV Q8 [facility] Last Admin: 10/27/18 05:32 Dose: 12.5 mls/hr Sodium Chloride () 1,000 mls @ 80 mls/hr IV .[id number] [facility] Last Admin: 10/27/18 05:31 Dose: Not Given Ibuprofen (Motrin) 400 mg PO Q8H PRN PRN PRN Reason: MILD PAIN (1-3/10) Ondansetron HCl (Zofran) 4 mg IV Q8H PRN PRN PRN Reason: NAUSEA/VOMITING Sodium Chloride () 5 - 15 ml IV UD PRN PRN Reason: SALINE FLUSH Medical Necessity - Tobacco Use Smoking Status: Current every day smoker Tobacco Use: Cigarettes Assessment/Plan All Active Problems (Last Updated 10/26/18 @ 14:38 by Carley Membreno DPM) Left foot infection (Acute) Foreign body foot/toe (Acute) Left foot pain (Acute) 1. Left foot puncture wound with E. coli which is pansensitive -Status post I&D -Would recommend that she can receive a second dose of Zosyn today and then can be discharged on Augmentin for 7 to 10 days -Follow-up with podiatry as an outpatient -Able for discharge home today per medicine 2. COPD -Continue with breathing treatments as needed -Sign of acute exacerbation 3. Bipolar disorder -Not currently on any meds -Recommend follow-up DVT: Ambulation Code Visit Inpatient E&M: 34638 Subs Hosp L2
--- NOTE | 2018-10-27 08:07 | PN_ITS ---
Patient Problems: Active and Suspected Problems (Last Updated 10/26/18 @ 14:38 by Carley Membreno DPM) Left foot infection (Acute) Foreign body foot/toe (Acute) Left foot pain (Acute) Subjective: Injury from stepping on a stick. She is up-to-date on her tetanus. She was taken to the OR yesterday for a washout. She states that the pain is controlled. She has been hypotensive however she states that she is usually in the 80s to 90s, and she is not currently symptomatic with lightheadedness or dizziness. Vitals/I&O's: Vital Signs Temp Pulse Resp BP Pulse Ox 98.6 F 58 L 16 79/40 L 98 10/27/18 05:47 10/27/18 05:47 10/27/18 05:47 10/27/18 05:47 10/27/18 05:47 Oxygen Delivery Method Room Air Weight: 131 lb Body Mass Index (BMI) 20.5 Intake and Output for Last 24 Hours 10/25/18 10/26/18 10/27/18 23:59 23:59 23:59 Intake Total 1327 / 1327 952 / 952 Output Total 300 / 300 Balance 1327 / 1327 652 / 652 General: Alert, Oriented x3, Cooperative, No apparent distress HEENT: Atraumatic, PERRLA, EOMI, Normocephalic Oral: Moist Mucosa Neck: Supple, No JVD Lungs: Clear to auscultation, Normal air movement, No rhonchi, No wheeze, No rales Cardiovascular: Regular rate, Regular Rhythm, Normal S1, Normal S2, No murmurs Abdomen: Soft, Non Tender, Non-Distended, No Hepato-splenomegaly Extremities: No edema, Capillary Refill Less than 3 Seconds Skin: Ulcer/ Wound - Dressing intact Neurological: Neuro grossly intact, Sensory exam intact to light touch and pain Psych/Mental Status: Normal Affect, Appropriate Laboratory Results 10/26/18 14:15: ESR 24 H 10/26/18 14:15: Total Bilirubin 0.60, Direct Bilirubin 0.17, AST 15, ALT 16, Alkaline Phosphatase 85, Total Protein 9.2 H, Albumin 4.2, Globulin 5.0 H 10/26/18 18:05: PT 15.9 H, INR 1.3, APTT 33.0 10/26/18 21:10: Urine Test Negative Current Medications Acetaminophen (Tylenol) 1,000 mg PO Q8H PRN PRN PRN Reason: Mild Pain (1-3)/Temp > 100.7 F Last Admin: 10/27/18 04:14 Dose: 1,000 mg Albuterol Sulfate (Ventolin Aerosols) 2.5 mg INHALATION Q2H PRN PRN PRN Reason: SOB &/OR WHEEZING Docusate Sodium (Colace) 100 mg PO BID PRN PRN PRN Reason: Constipation Hydroxyzine Pamoate (Vistaril Pamoate Capsule) 25 mg PO TID PRN PRN PRN Reason: ANXIETY Piperacillin Sod/Tazobactam (Sod 3.375 gm/ Sodium Chloride) 50 mls @ 12.5 mls/hr IV Q8 [facility] Last Admin: 10/27/18 05:32 Dose: 12.5 mls/hr Sodium Chloride () 1,000 mls @ 80 mls/hr IV .[id number] [facility] Last Admin: 10/27/18 05:31 Dose: Not Given Ibuprofen (Motrin) 400 mg PO Q8H PRN PRN PRN Reason: MILD PAIN (1-3/10) Ondansetron HCl (Zofran) 4 mg IV Q8H PRN PRN PRN Reason: NAUSEA/VOMITING Sodium Chloride () 5 - 15 ml IV UD PRN PRN Reason: SALINE FLUSH Medical Necessity - Tobacco Use Smoking Status: Current every day smoker Tobacco Use: Cigarettes Assessment/Plan All Active Problems (Last Updated 10/26/18 @ 14:38 by Carley Membreno DPM) Left foot infection (Acute) Foreign body foot/toe (Acute) Left foot pain (Acute) 1. Left foot puncture wound with E. coli which is pansensitive -Status post I&D -Would recommend that she can receive a second dose of Zosyn today and then can be discharged on Augmentin for 7 to 10 days -Follow-up with podiatry as an outpatient -Able for discharge home today per medicine 2. COPD -Continue with breathing treatments as needed -Sign of acute exacerbation 3. Bipolar disorder -Not currently on any meds -Recommend follow-up DVT: Ambulation Code Visit Inpatient E&M: 12729 Subs Hosp L2
[2018-10-27] MEDS: Ibuprofen 400 MG Tablet PO (08:37)
[2018-10-27] MEDS: 0.9% Normal Saline 1,000 ML 500 ML IV (08:37)
[2018-10-27 09:25] LABS: Absolute Lymphocyte Count 0.63 X10^3/ul (0.83-4.51); Absolute Neutrophil Count 4.5 X10^3/uL (2.0-7.7); Basophil# 0.01 X10^3/uL; Basophil% 0.2 % (0-1); Hematocrit 36.7 % (37-47); Hemoglobin 12.8 g/dl (12.0-15.0); Lymphocyte # 0.63 X10^3/ul (4.0); Mean Corp Hgb Conc 34.9 g/gl (32-36); Mean Corpuscular Hgb 32.7 pg (27.0-32.0); Mean Corpuscular Volume 93.6 fL (81-99); Mean Platelet Vol. 11.5 fl (6.2-12.0); Monocyte# 0.13 X10^3/uL; Monocyte% 2.5 % (0-10); Neutrophil # 4.46 X10^3/uL (2.7-7.7); Neutrophil % 85.1 % (47-70); Platelet Count 132 K/mm3 (150-450); RBC Distribution Width CV 12.3 % (11.6-14.6); RBC Distribution Width SD 41.7 fl (35.1-43.9); Red Blood Count 3.92 M/mm3 (4.2-5.4); White Blood Count 5.2 K/mm3 (4.4-11.0)
[2018-10-27 09:28] LABS: POSITIVE COUNT NO; POSITIVE DIFFERENTIAL NO; POSITIVE MORPHOLOGY NO
--- NOTE | 2018-10-27 11:48 | CASEMGMT ---
RN CM Assessment Presentation: I/D L foot with foreign body removal Intro role of CM and purpose of RN CM assessment to patient in room.. Demographics, PCP and Pharmacy verified. Pt states she is independent, does not have concerns re: discharge. PCP: Dr. Gomez Specialists: Dr. Membreno, Podiatry Preferred Pharmacy: [facility] Insurance: Zyncd Prescription Benefit: Yes LNOK: Mariama Robison Living Arrangements: Lives independently. States is independent, no care needs prior to admission. Transportation: drives or has someone to assist with driving. DME: crutches HHC: none Patient DC goals: Home DC PLAN: Home Giorgi VAZ RN ACM
--- NOTE | 2018-10-27 13:16 | CON.PCM_ITS ---
Problem List (1) Left foot infection Status: Acute Reason for Consult: foot abscess Consulted by: Dr. Mendes History of Present Illness: The patient is a 33 year old F who presented with L foot pain/swelling/redness/purulent drainage. Stepped on a stick on 10/23, had progressive sx. Had cx done 10/24, admitted for surgical debridement 10/[address] Membreno. Feeling better, no fever, no n/v/d. Full ROS performed and neg except as noted above. - Medical History Past Medical History (Chronic Problems): Chronic Problems (Last Updated 10/26/18 @ 14:38 by Carley Membreno DPM) Bipolar disorder (Chronic) Depression (Chronic) Tobacco use (Chronic) Allergies/Adverse Reactions: Allergies tramadol Allergy (Verified 10/24/18 12:22) Hives SLO-FE Allergy (Unknown, Uncoded 10/24/18 12:22) Hives Home Medications: Ambulatory Orders Medication Instructions Recorded hydrOXYzine pamoate capsule 25 mg PO TID PRN PRN 09/13/18 [Vistaril pamoate capsule] Cephalexin [Keflex] 500 mg PO Q6 #40 capsule 10/24/18 - Social History Tobacco Use: cigarettes Vital Signs Temp Pulse Resp BP Pulse Ox 98.3 F 54 L 16 84/44 L 97 10/27/18 11:45 10/27/18 11:45 10/27/18 11:45 10/27/18 11:45 10/27/18 11:45 Oxygen Delivery Method Room Air Weight: 59.421 kg Body Mass Index (BMI) 20.5 Microbiology Past 72 Hours 10/26/18 23:12 Gram Stain - Final Tissue - Other Laboratory Tests Past 24 Hrs 10/26/18 10/26/18 10/26/18 14:15 14:15 18:05 WBC RBC Hgb Hct MCV MCH MCHC RDW RDW Differential Plt Count MPV Immature Gran % (Auto) Neut % (Auto) Lymph % (Auto) Stephen[place] % (Auto) Eos % (Auto) Baso % (Auto) Absolute Neuts (auto) Absolute Lymphs (auto) Total Counted ESR 24 H PT 15.9 H INR 1.3 APTT 33.0 Total Bilirubin 0.60 Direct Bilirubin 0.17 AST 15 ALT 16 Alkaline Phosphatase 85 Total Protein 9.2 H Albumin 4.2 Globulin 5.0 H Urine Test 10/26/18 10/27/18 21:10 09:00 WBC 5.2 RBC 3.92 L Hgb 12.8 Hct 36.7 L MCV 93.6 MCH 32.7 H MCHC 34.9 RDW 12.3 RDW Differential 41.7 Plt Count 132 L MPV 11.5 Immature Gran % (Auto) 0.200 Neut % (Auto) 85.1 H Lymph % (Auto) 12.0 L Stephenson % (Auto) 2.5 Eos % (Auto) 0.0 Baso % (Auto) 0.2 Absolute Neuts (auto) 4.5 Absolute Lymphs (auto) 0.63 L Total Counted Not Reportable ESR PT INR APTT Total Bilirubin Direct Bilirubin AST ALT Alkaline Phosphatase Total Protein Albumin Globulin Urine Test Negative - Other Studies Radiology: [] reviewed Other Studies: [] Route of nutrition/ use of supplements: [] Nutritional Intake: [] IV Site: [] Vega Catheter: [] - Physical Exam General: Alert, Oriented x3, Cooperative, No apparent distress HEENT: Atraumatic, PERRLA, EOMI Neck: Supple, No Nodes Lungs: Clear to auscultation, Normal air movement Cardiovascular: Regular rate, Regular Rhythm Abdomen: Soft, Non Tender, Non-Distended Extremities: No edema Skin: Incision - L foot wrapped Musculoskeletal: No Tenderness to Palpation of Joints or Extremities Neurological: Cranial nerves II-XII grossly intact - Assessment/Plan Antibiotics: [] Assessment/Plan: [] Active and Suspected Problems (Last Updated 10/26/18 @ 14:38 by Carley Membreno DPM) Left foot infection (Acute) Foreign body foot/toe (Acute) Left foot pain (Acute) L foot abscess related to foreign body - cx with ecoli, enterobacter, pantoea. Ok for d/c home on po bactrim and augmentin to cover growth seen. S/p OR with good source control 10/[address] Membreno. Will follow, thank you.
[2018-10-27] MEDS: Smz/Tmp Ds Tablet 1 TABLET PO (13:32)
[2018-10-27] MEDS: Amox/Clavulanate 875 MG Tablet PO (13:32)
--- NOTE | 2018-10-27 13:34 | PN_ITS ---
Patient Problems: Active and Suspected Problems (Last Updated 10/26/18 @ 14:38 by Carley Membreno DPM) Left foot infection (Acute) Foreign body foot/toe (Acute) Left foot pain (Acute) Subjective: This 33-year-old female seen bedside postoperative day #1 incision and drainage with arthrotomy and removal of foreign body of the left foot. She relates her pain is significantly improved and is intermittently at worst a 5 out of 10. She denies fever, chill, nausea, vomiting, calf pain, chest pain, shortness of breath, dizziness, urinary retention, constipation. She has surgical shoe in place. She Glen has crutches. She is seen infectious disease who recommended discharging on Bactrim and Augmentin. She relates she is able to change the dressing at home on her own. - Physical Exam General: Alert, Oriented x3, Cooperative Extremities: Capillary Refill Less than 3 Seconds - All digits left foot, No Calf Tenderness - Negative Cecil and Marquez sign bilateral, Edema - decreased left foot, Peripheral Pulses Normal Skin: Incision - well aligned with minimal retention sutures. No purulence on expression. The erythema intensity and location has significantly reduced compared to yesterday. There is no longer any odor. No necrosis noted. The central packing was removed and there is only hematogenous drainage on the site. Musculoskeletal: No Tenderness to Palpation of Joints or Extremities, No Muscle Wasting, - - No induration to the dorsal forefoot and there is no longer any pain with palpation to the second metatarsal phalangeal joint or with passive range of motion. Compartments are soft to palpate left foot Neurological: Sensory exam intact to light touch and pain Psych/Mental Status: Normal Affect, Appropriate Vital Signs Temp Pulse Resp BP Pulse Ox 98.3 F 54 L 16 84/44 L 97 10/27/18 11:45 10/27/18 11:45 10/27/18 11:45 10/27/18 11:45 10/27/18 11:45 Oxygen Delivery Method Room Air Weight: 59.421 kg Body Mass Index (BMI) 20.5 Intake and Output for Last 24 Hours 10/25/18 10/26/18 10/27/18 23:59 23:59 23:59 Intake Total 1327 / 1327 2419 / 2419 Output Total 700 / 700 Balance 1327 / 1327 1719 / 1719 Microbiology Past 72 Hours 10/26/18 23:12 Gram Stain - Final Tissue - Other Wound Culture - Preliminary Laboratory Tests Past 24 Hrs 10/26/18 10/26/18 10/26/18 14:15 14:15 18:05 WBC RBC Hgb Hct MCV MCH MCHC RDW RDW Differential Plt Count MPV Immature Gran % (Auto) Neut % (Auto) Lymph % (Auto) [place] % (Auto) Eos % (Auto) Baso % (Auto) Absolute Neuts (auto) Absolute Lymphs (auto) Total Counted ESR 24 H PT 15.9 H INR 1.3 APTT 33.0 Total Bilirubin 0.60 Direct Bilirubin 0.17 AST 15 ALT 16 Alkaline Phosphatase 85 Total Protein 9.2 H Albumin 4.2 Globulin 5.0 H Urine Test 10/26/18 10/27/18 21:10 09:00 WBC 5.2 RBC 3.92 L Hgb 12.8 Hct 36.7 L MCV 93.6 MCH 32.7 H MCHC 34.9 RDW 12.3 RDW Differential 41.7 Plt Count 132 L MPV 11.5 Immature Gran % (Auto) 0.200 Neut % (Auto) 85.1 H Lymph % (Auto) 12.0 L [place] % (Auto) 2.5 Eos % (Auto) 0.0 Baso % (Auto) 0.2 Absolute Neuts (auto) 4.5 Absolute Lymphs (auto) 0.63 L Total Counted Not Reportable ESR PT INR APTT Total Bilirubin Direct Bilirubin AST ALT Alkaline Phosphatase Total Protein Albumin Globulin Urine Test Negative Medical Necessity - Tobacco Use Smoking Status: Current every day smoker Tobacco Use: Cigarettes Assessment/Plan All Active Problems (Last Updated 10/26/18 @ 14:38 by Carley Membreno DPM) Left foot infection (Acute) Foreign body foot/toe (Acute) Left foot pain (Acute) Postoperative day #1 left foot incision and drainage with second metatarsophalangeal joint arthrotomy and removal of foreign body with irrigation Pain controlled I reviewed and discussed her case. Her leukocytosis is resolved and is a 5.2. Her vitals remained stable. It is noted she does have hypotension however this appears to be her baseline and she is asymptomatic. She is improving clinically and she has remained afebrile overnight. Infectious disease consultation is greatly appreciated; she will complete an outpatient course of Augmentin and Bactrim. She is advised to change the dressing daily with Betadine gauze to the incision site; this was demonstrated and she reports she is capable of performing this. She was advised to heel weight-bear to the left foot with a surgical shoe in place and use crutches only if needed. I recommended she follow-up at the [facility] Center in 1 week or call sooner if there are any questions or concerns. Hospitalist medical management is greatly appreciated. Discharge orders will be placed. Please not hesitate to call for any questions or concerns. Carley Membreno DPM, [facility] [phone]
--- NOTE | 2018-10-27 13:37 | DCINST_ITS ---
Discharge Diet: No Restrictions Discharge Activity: May Not Shower, May Take a Tub Bath - keep foot out of submerged water, Use Crutches - only if needed. Otherwise, walk on heel with surgical shoe in place Weight Bearing Status: Partial weight bearing Keep extremity elevated above heart level: Left Leg Call your doctor if your incision/area has: Continuous Slow Oozing, Sudden Increased Bleeding, Increased Pain/ Swelling, Increased Redness, Foul Smelling Discharge, Swelling at the incision site Call your doctor if you observe: Fever of 101 or Higher, Calf discomfort, Uncontrolled pain Cleanse incision/area with: - - change daily with betadine gauze to left foot applied over the incision / drainage site. Secure with the victorina wrap; start near the toes and end on the leg. Allergies/Adverse Reactions: Allergies tramadol Allergy (Verified 10/24/18 12:22) Hives SLO-FE Allergy (Unknown, Uncoded 10/24/18 12:22) Hives Medications to take at Discharge hydrOXYzine pamoate capsule [Vistaril pamoate capsule] 25 mg PO TID PRN PRN 09/13/18 Amox/Clavulanate Tablet [Augmentin Tablet] 875 mg PO BID #10 tablet 10/27/18 Smz/Tmp Ds [Bactrim Ds] 1 tablet PO BID #10 tablet 10/27/18 The following prescriptions were given: Amox/Clavulanate Tablet [Augmentin Tablet] 875 mg PO BID #10 tablet Smz/Tmp Ds [Bactrim Ds] 1 tablet PO BID #10 tablet Primary Care Physician: Derek Gomez MD [Primary Care Provider] - Test Results: Test results from this visit will be discussed in further detail at your follow- up appointment, if applicable. Please Follow Up With: Carley Membreno DPM When: [facility] 1 week; call [phone] sooner if concerns. Proposed Discharge Date: 10/27/18
== END 2018-10-27 14:11 | disposition home or self-care (01) | DRG 384 ==
PROVIDERS: Anesthesiology; Admitting Provider Podiatrist; Family Provider Family Medicine; PCP Family Medicine; Referring Provider Podiatrist; Visit Provider Family Medicine
PROC: 0H9NXZZ Drainage of Left Foot Skin, External Approach (ICD-10-PCS; principal; 2018-10-26 21:20)
DX: S91.342A Puncture wound with foreign body, left foot, initial encounter (principal); L02.612 Cutaneous abscess of left foot; L03.116 Cellulitis of left lower limb; B96.20 Unspecified Escherichia coli [E. coli] as the cause of diseases classified elsewhere; B96.89 Other specified bacterial agents as the cause of diseases classified elsewhere; W22.09XA Striking against other stationary object, initial encounter; Y93.01 Activity, walking, marching and hiking; Y92.9 Unspecified place or not applicable; D72.829 Elevated white blood cell count, unspecified; I95.9 Hypotension, unspecified; J43.9 Emphysema, unspecified; F17.210 Nicotine dependence, cigarettes, uncomplicated; F11.11 Opioid abuse, in remission; Z85.41 Personal history of malignant neoplasm of cervix uteri
CPT/HCPCS: 36415; 73630; 80076; 81025; 85025; 85610; 85652; 85730; 87015; 87040; 87070; 87075; 87077; 87102; 87116; 87186; 87205; 87206; 93005; 99283; J7030; J2405

== ENCOUNTER 2019-05-25 13:34 | Emergency (ER) | payer MEDICAID, SELFPAY ==
[2018-10-26 21:21] VITALS: BMI 20.5
[2019-05-25 13:36] VITALS: BP 108/66; PULSE 88; RESP 16; TEMP 36.2; O2SAT 97; BMI 20.2
--- NOTE | 2019-05-25 13:48 | ED.VISSUMM ---
- ER Visit Summary Date of Service: 05/25/19 Chief Complaint: Fall History of Present Illness: The patient is a 33 F who presents with elbow pain that began after a fall 2 days ago. Patient states she went to sit on a stool and her mother had moved it. Patient states she fell onto her tailbone on the floor. Patient states her pain is sharp and stabbing. Patient states pain is worse with coughing and with movement. Patient denies any head injury or loss of consciousness. Patient denies any paresthesias or weakness. Patient states the pain radiates down both legs. Patient denies any bowel or bladder changes. Patient denies any saddle anesthesia. Physical Examination: Vital signs are stable. Patient is able afebrile. Patient is in no acute distress. Musculoskeletal exam reveals tenderness over the sacrum. There is no bony crepitance or step-off. There is no pain or tenderness over the hips or lower extremities. There is no tenderness over the lumbar spine. There is no bony crepitance or step-off. Range of motion was limited in all motions of the lower lumbar spine secondary to pain. Strength is 5/5 bilaterally in the lower extremities. There are no sensory deficits noted. Test Results: X-rays of the sacrum and coccyx were obtained. There is no acute fracture. This was interpreted by the radiologist and myself. Emergency Department Course and Treatment: Patient was advised of her findings. Patient was instructed to get an inflatable doughnut pillow to sit on. Patient was instructed to take Tylenol or ibuprofen as needed for pain. Patient was instructed to use ice to the area. Patient was instructed to follow-up with her primary care physician in 5 to 7 days. Patient understood and was agreeable with the plan. All questions were answered. Disposition: Discharge home Impression: Sacral contusion This note was generated with [employer] dictation software. It may contain incorrect words, spelling, and punctuation that were not noted in review of the chart prior to signing ED Disposition - Plan for ED Patient: Disposition: Home or Assisted Living Diagnosis: Contusion of sacrum Instructions: CONTUSION, Coccyx/Sacrum Referrals: Derek Gomez MD [Primary Care Provider] - 5-7 Days
--- NOTE | 2019-05-25 13:55 | RAD_ITS ---
STUDY: X-RAY - SACRUM/COCCYX REASON FOR EXAM: Female, 33 years old. Fall. Pain. TECHNIQUE: 3 view(s) of the sacrum and coccyx were obtained. COMPARISON: None. FINDINGS: Normal bilateral sacroiliac joints. Normal visualized sacral ala and fused sacral bodies. Normal sacrococcygeal junction with a normal angulation. There is an intrauterine device noted. The presacral soft tissue structures are unremarkable. RAD/Sacrum-Coccyx min 2 Views IMPRESSION: Normal x-rays of the sacrum and coccyx. Electronically Signed: Wilfrido Mahoney, at 14:18 EST Tel , Service support ,
[2019-05-25 14:45] VITALS: RESP 16
== END 2019-05-25 14:46 | disposition home or self-care (01) ==
PROVIDERS: Emergency Provider Emergency Medicine; Family Provider Family Medicine; PCP Family Medicine
DX: S30.0XXA Contusion of lower back and pelvis, initial encounter (principal); W18.39XA Other fall on same level, initial encounter; Y93.89 Activity, other specified; J44.9 Chronic obstructive pulmonary disease, unspecified; Z72.0 Tobacco use
CPT/HCPCS: 72220; 99282

== ENCOUNTER 2019-10-29 21:32 | Emergency (ER) | payer MEDICAID, SELFPAY ==
[2019-10-29 21:33] VITALS: BP 110/69; PULSE 95; RESP 16; TEMP 36.6; O2SAT 99; BMI 21.1
[2019-10-29 22:47] LABS: Mucous, Urine 0 SEEN /hpf (<or=2+)
[2019-10-29 22:50] LABS: Color, Urine Yellow (Yellow); Glucose, Dipstick Normal (Normal); Ketone-Dipstick Negative (Negative); Leukocyte Esterase-Dipstick 500 /ul (Negative); Nitrite-Dipstick Negative (Negative); Occult Blood-Urine 250 /ul (Negative); Protein-Dipstick 100 mg/dl (Negative); Urine Bilirubin Dipstick Negative (Negative); Urine Clarity Cloudy (Clear); Urine Urobilinogen Normal (Normal)
--- NOTE | 2019-10-29 22:54 | ED.VISSUMM ---
- ER Visit Summary Date of Service: 10/29/19 Chief Complaint: Dysuria History of Present Illness: The patient is a 34 F who presents with dysuria that is been getting worse over the past 2 days. Patient states she feels pressure in her lower abdomen. Patient states this is worse when she urinates. Patient states it galarza when she urinates. Patient admits to some hematuria. Patient denies any fevers or chills. Patient denies any nausea or vomiting. Patient denies any back pain. Patient denies any abnormal vaginal bleeding or discharge. She denies any chest pain or shortness of breath. Physical Examination: Vital signs are stable. Patient is afebrile. Patient is in no acute distress. Oral mucosa is pink and moist. Neck is supple. Trachea is midline. There is no JVD. Heart was regular rate and rhythm. Lungs are clear and equal bilaterally. Abdomen is soft. Bowel sounds are normal. There is no tenderness. There is no guarding. There is no rebound. Cranial nerves II through XII are intact. There are no focal motor or sensory deficits noted. Extremities are intact. There is no calf tenderness or edema. Test Results: Urinalysis shows leukocyte esterase of 500 and occult blood 250. There were greater than 100 red blood cells and greater than 100 white blood cells. There is 1+ bacteria. Emergency Department Course and Treatment: Patient was given a dose of Macrobid here. Patient was given a prescription for Macrobid. Patient was instructed to follow-up with her primary care physician in 5 to 7 days. Patient was instructed to drink plenty of fluids. Patient understood and was agreeable with the plan. All questions were answered. Disposition: Discharge home Impression: 1. Urinary tract infection This note was generated with [employer] dictation software. It may contain incorrect words, spelling, and punctuation that were not noted in review of the chart prior to signing ED Disposition - Plan for ED Patient: Disposition: Home or Assisted Living Diagnosis: Urinary tract infection Instructions: ED CYSTITIS Female Adult Prescriptions: Nitrofurantoin Macrocrystals [Macrobid] 100 mg PO Q12 #14 cap Prescription Printed Referrals: Derek Gomez MD [Primary Care Provider] - 5-7 Days
[2019-10-29 23:09] LABS: White Blood Cells >100 SEEN /hpf (0-5)
[2019-10-29 23:10] LABS: Red Blood Cells-Urine > 100 SEEN /hpf (0-5); Squamous Epithelial Cells - UA 0-5 SEEN /hpf (5-10)
[2019-10-29 23:11] LABS: Bacteria 1+ /hpf (None Seen)
[2019-10-29] MEDS: Nitrofurantoin Macrocrystals 100 MG Capsule PO (23:52)
[2019-10-29 23:56] VITALS: BP 110/71; PULSE 78; RESP 17; O2SAT 99
--- OUTSIDE RECORDS SUMMARY | 2020-03-16 06:07 | XMS RPT_ITS | CCD ---
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 Information Pharmacy Address Telephone [facility] [phone] [place] [address] Valery Arthur RN Allergies As of Date: 02/08/2018 Noted Allergy Reaction SLOW FE (FERROUS SULFATE DRIED) 03/19/2005 2 - Rash Date Reviewed: 12/30/2017 Reviewed by: Ann Andrade - Fully Assessed Reason for Visit: Herpes [934] Order(s):acyclovir (ZOVIRAX) 400 mg tabletTake 1 tablet by mouth five times daily for 7 days.Disp: 35 tabletRfl: 2 Prescriptions as of 02/08/2018 Sig: ACYCLOVIR 400 MG TABLET Take 1 tablet by mouth five t* NAPROXEN 500 MG TABLET Take 1 tablet by mouth twice * LEVONORGESTREL 20 MCG/24 HR (* 1 Each by INTRAUTERINE route * Problem List As Of Date 02/08/2018 Noted Resolved SUPERVIS OTHER NORMAL PREG [Z34.80] INVALID FOR*04/11/2006 IRREGULAR MENSTRUATION [N92.6] INVALID FOR*04/11/2006 Supervision of other high-risk (V23.89*INVALID FOR* 12/19/2013 Threatened premature labor, antepartum [O47.00] INVALID FOR* 12/19/2013 UTI (lower urinary tract infection) [N39.0] INVALID FOR*07/2016 Bipolar I disorder, most recent episode (or cur*INVALID FOR* Prescriptions ordered this encounter Disp Refills Start End ACYCLOVIR 400 MG TABLET 35 t* 2 02/08/2018 02/15/2018 Route: ORAL Sig: Take 1 tablet by mouth five times daily for 7 days. Medications Discontinued During This Encounter acyclovir (ZOVIRAX) 400 mg tablet 35 t* 0 12/30/2017 02/08/2018 Route: ORAL Sig: Take 1 tablet by mouth five times daily for 7 days. Disc: Reason for discontinue is not on file. Encounter Status:Closed by ANN ANDRADE MD on 02/08/18 progress on 2017-12 Protein mass HNO ID: [id number] Normal 12-31-[address] [place] [address] Author: Ann Andrade [place] ([id number]) Service: (none) Author Type: Physician Type: Progress Notes Filed: 01/02/2018 10:01 AM Note Text: Darius Christianson is a 32 year old female who [facility] for 1 week(s). HPI: 32 YOF w/ sharp, burning pelvic pain. No dysuria. Not w orse w/ BM or urination, no dysuria. Some increased discharge. Hasn't had this before. Started after intercourse. Wonders if IUD has moved b/c has vaginal burning, sharp stabbing pain. Same partner x 1 year. He has no symptoms. PAST MEDICAL HISTORY Diagnosis Date - Abnormal glandular Papanicolaou smear of cervix Abn. 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 PT ADVISED BIKE HELMET Yes Comment:DOESNT WEAR HELMET.PT COUNSELED SEAT BELT No SELF EXAMS No Comment:DOES SBE Current Outpatient Prescriptions: levonorgestrel (MIRENA) 20 mcg/24 hr (5 years) IUD 1 Each by INTRAUTERINE route as directed. put in in the OR naproxen (NAPROSYN) 500 mg tablet Take 1 tablet by mouth twi ce daily as needed (pain). (Patient not taking: Reported on 12/30/2017 ) No current facility-administered medications for this visit. Allergies As of Date: 12/30/2017 Allergen Noted Reaction SLOW FE [FERROUS SULFATE DRIED] 03/19/2005 Rash Fully Assessed 12/30/2017 REVIEW OF SYSTEMS Abdomen: No bloating, early satiety, indigestion, or increas ed flatulence. No abdominal pain, nausea, vomiting, diarrhea, or constipati on. Bladder: No dysuria, gross hematuria, urinary frequency, uri nary urgency, or incontinence. Breast: No breast lumps, nipple d/c, overlying skin changes, redness or skin retraction. Allergies and current medication updated:Yes EXAM: There were no vitals taken for this visit. GENERAL: upset, female in no apparent distress ABDOMEN: soft, non-tender and no masses PELVIC: external genitalia normal, normal Bartholin's glands , urethra, [place]'s glands, no vulvar lesions, good vaginal support, phy siologic discharge present, normal appearing perineal body and perian al region, cervix ww/ 2 large ulcerations on anterior surface, red edge s, white in ulceration, moderate discharge in vault. Nonfriable cervix, no purulent discharge, IUD strings 2 cm long. Lesiosn very tender. C/w H SV, difficult to see until the speculum was moved back as they a re at cervical/vaginal junction anteriorly BIMANUAL: uterus normal size, shape and consistency, no adne xal masses and non-tender ASSESSMENT AND PLAN: vaginal ulcerations, no H/o vulvovaginal or oral HSV> Partne r x 1 year. D/w her transmission/natural h/o HSV. will wait for testing to return. D/w her IUD is not cause of her symptoms and since she has n o signif. vaginal bleeding and it has been working well for that will leave it in. She agrees. See orders. Ann Andrade MD hsv1,2/vzv amplif o n 2017-12-30 HSV Type 1, HDA Negative for Herpes Normal [facility] Simplex virus Type 1 by [place] ([id number]) Molecular Detection. Comment: Performed By: #### HSVVZV ## ## [facility] [address] [place] [address] HSV Type 2, Positive for Herpes Critically abnorma l 12-30-2017 [facility] HDA Simplex virus Type C leveland ([id number]) 2 by Molecular Detection. Comment: Performed By: #### HSVVZV ## ## [facility] [address] [place] [address] Specimen source Nom (Unsp Lesion Normal [facility] spec) ([id number]) Comment: Result Comment: Cervix Performed By: #### HSVVZV ## ## [facility] [address] [place] [address] V Zoster Virus, HDA Negative for Varicella Normal 12-30-2017 [facility] Zoster virus by Alethea pina ([id number]) Molecular Detection. Comment: Performed By: #### HSVVZV ## ## [id number] [place] [phone] gc/chlamydia amplif on 2017-12-30 Chlamydia Amplif Negative for Chlamydia Normal 12-30-2017 [facility] trachomatis by Kalia gunter ([id number]) amplification. Comment: Performed By: #### GCCT #### [place] [id number] [place] [address] GC Amplification Negative for Neisseria Normal 12-30-2017 [facility] gonorrhoeae by Kalia gunter ([id number]) amplification. Comment: Performed By: #### GCCT #### [place] [address] GC/Chlam Amp Source Cervix Normal 12-30-2017 [facility] ([id number]) Comment: Performed By: #### GCCT #### [place] [address] cnov on 2017-12-30 CNOV Office Visit (WOOB) Normal 12-30-2017 [place] DARIUS Quigley ([id number]) 1985 [facility] Date Time Provider Department ([id number]) 12/30/17 3:20 PM ANN ANDRADE WOOB During your visit today, we recorded the following informati on about you: Blood pressure Weight 92/50 55.8 kg Ann Andrade MD 01/02/2018 10:01 AM Signed Darius Christianson is a 32 year old female who presents for problem visit for pelvic pain for 1 week(s). HPI: 32 YOF w/ sharp, burning pelvic pain. No dysuria. Not w orse w/ BM or urination, no dysuria. Some increased discharge. Hasn't had this before. Started after intercourse. Wonders if IUD has moved b/ c has vaginal burning, sharp stabbing pain. Same partner x 1 year. He has no sympto ms. PAST MEDICAL HISTORY Diagnosis Date - Abnormal glandular Papanicolaou smear of cervix Abn. 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 2002 EXERCISE Yes Comment:DOESNT EXERCISE ROUTINELY. PT ADVISED BIKE HELMET Yes Comment:DOESNT WEAR HELMET.PT COUNSELED SEAT BELT No SELF EXAMS No Comment:DOES SBE Current Outpatient Prescriptions: levonorgestrel (MIRENA) 20 m cg/24 hr (5 years) IUD 1 Each by INTRAUTERINE route as directed. put in in the OR naproxen (NAPROSYN) 500 mg tablet Take 1 tablet by mouth twice daily as needed (pain). (Patient not taking: Reported on 12/30/2017 ) No current facility-administered medications for this visit. Allergies As of Date: 12/30/2017 Allergen Noted Reaction SLOW FE [FERROUS SULFATE DRIED] 03/19/2005 Rash Fully Assessed 12/30/2017 REVIEW OF SYSTEMS Abdomen: No bloating, early satiety, indigestion , or increased flatulence. No abdominal pain, nausea, vomiting, diarrhea, or constipation. Bladder: No dysuria, gross hematuria, urinary frequenc y, urinary urgency, or incontinence. Breast: No breast lumps, nipple d/c, overlying skin ch anges, redness or skin retraction. Allergies and current medication updated:Yes EXAM: There were no vitals taken for this visit. GENERAL: upset, female in no apparent distress ABDOMEN: soft, non-tender and no masses PELVIC: external genitalia normal, blayne l Bartholin's glands, urethra, [place]'s glands, no vulvar lesions, g ood vaginal support, physiologic discharge present, normal appearing perineal body and perianal region, cervix w w/ 2 large ulcerations on anterior surface, red edges, white in ulcerat ion, moderate discharge in vault. Nonfriable cervix, n o purulent discharge, IUD strings 2 cm long. Lesiosn very tender. C/w HSV, difficult to see until the speculum was moved back as they are at cervical/vaginal junction anterior ly BIMANUAL: uterus normal size, shape and consistency, no adne xal masses and non-tender ASSESSMENT AND PLAN: vaginal ulcerations, no H/o vulvovaginal or oral HSV> Part ner x 1 year. D/w her transmission/natural h/o HSV. will wait for testing to r eturn. D/w her IUD is not cause of her symptoms and sin ce she has no signif. vaginal bleeding and it has been working well for that will leave it in. She agrees. See orders. Ann Andrade MD Referring Provider: SELF [200] Allergies As of Date: 12/30/2017 Noted Allergy Reaction SLOW FE (FERROUS SULFATE DRIED) 03/19/2005 2 - Rash Date Reviewed: 12/30/2017 Reviewed by: Ann Andrade - Fully Assessed Reason for Visit: IUD Removal [1950] Primary Visit Diagnosis:Screening examination for venereal d isease [Z11.3] Other Visit Diagnosis:Herpes simplex vulvovaginitis [A60.04] Order(s):GC/CHLAMYDIA DNA DET [SQGCCAMP] Order #: [id number] Spec. #:[id number] HSV 1,2/VZV AMP MOLECULAR DETECT [SQHSVVZV] Order #: [id number] FUTURE naproxen (NAPROSYN) 500 mg tabletTake 1 tablet by mouth twic e daily as needed for Pain (pain).Disp: 30 tabletRfl: 0 acyclovir (ZOVIRAX) 400 mg tabletTake 1 tablet by mouth five times daily for 7 days.Disp: 35 tabletRfl: 0 Prescriptions as of 12/30/2017 Sig: LEVONORGESTREL 20 MCG/24 HR (* 1 Each by INTRAUTERINE route * NAPROXEN 500 MG TABLET Take 1 tablet by mouth twice * ACYCLOVIR 400 MG TABLET Take 1 tablet by mouth five t* Problem List As Of Date 12/30/2017 Noted Resolved SUPERVIS OTHER NORMAL PREG [Z34.80] INVALID FOR*04/11/2006 IRREGULAR MENSTRUATION [N92.6] INVALID FOR*04/11/2006 Supervision of other high-risk (V23.89*INVALID FOR* 12/19/2013 Threatened premature labor, antepartum [O47.00] INVALID FOR* 12/19/2013 UTI (lower urinary tract infection) [N39.0] INVALID FOR*07/2016 Bipolar I disorder, most recent episode (or cur*INVALID FOR* Prescriptions ordered this encounter Disp Refills Start End NAPROXEN 500 MG TABLET 30 t* 0 12/30/2017 Route: ORAL Sig: Take 1 tablet by mouth twice daily as needed for Pain ( pain). ACYCLOVIR 400 MG TABLET 35 t* 0 12/30/2017 01/06/2018 Route: ORAL Sig: Take 1 tablet by mouth five times daily for 7 days. Medications Discontinued During This Encounter naproxen (NAPROSYN) 500 mg tablet 60 t* 0 12/08/2016 12/30/2017 Route: ORAL Sig: Take 1 tablet by mouth twice daily as needed (pain). Patient not taking: Reported on 12/30/2017 Disc: Reason for discontinue is not on file. Encounter Status:Closed by ANN ANDRADE MD on 01/02/18 ct abdomen/pelvis w/o contrast on 2017-09-17 CT ABDOMEN/PELVIS W/O ORIGINALCT ABDOMEN/PELVIS No rmal 09-17-2017 [facility] CONTR[facility] [place] coronal, sagittal, and ([id number]) axial reconstructions were reviewed on a separate workstation CLINICAL STATEMENT: Right flank pain, history of renal stones COMPARISON: None TECHNIQUE: This exam was performed according to our departmental dose optimization program, including but not limited to: automated exposure control, adjustment of the mAs and/or kVp according to patient size and/or exam, and use of an iterative reconstruction algorithm where applicable. FINDINGS: The visualized lung bases are clear. No pleural fluid. The unenhanced liver, gallbladder, spleen, adrenal glands, and pancreas are unremarkable. The stomach, duodenum, small bowel, and large bowel demonstrate no acute abnormality. The appendix is normal. No pneumoperitoneum. The kidneys are symmetric in size without radiopaque stone or evidence of obstruction. The ureters are not dilated. The urinary bladder is collapsed. The anteverted uterus is normal in appearance, with intrauterine device is seen within the endometrial canal. Bilateral tubal ligation clips are noted. No adnexal mass. No free pelvic fluid. The abdominal wall is intact. The aorta is normal in course and caliber. No lymphadenopathy within the abdomen or pelvis. No aggressive osseous lesions or acute osseous findings. IMPRESSION: No radiopaque urinary system calculi or obstructive uropathy. Normal appendix. I have personally reviewed the images of this examination and agree with the resident's findings and interpretation. Interpreted By: Yelena AnguloPreliminary Report By: Angel Phan DOElectronically Signed By: Yelena Angulo Dictated Date: 09/16/2017 9:21:15 PM Prelim Date: 09/16/2017 9:23:53 PM Sign Date: 09/16/2017 10:28:15 PM ua on 2017-09-16 Color Nom (U) YELLOW Normal 09-16-2017 [facility] ([place]) ([id number]) Comment: Performed By: #### UA UAMIC AO ####[id number] [place], [place] [address] Glucose mass conc (U) NEGATIVE mg/dL Normal 09-17-19 18 [facility] ([place]) (0000 0) Comment: Performed By: #### UA, UAMIC AO ####[address] [place], [place] [address] Ketones Ql (U) NEGATIVE Normal 09-16-2017 [facility] ([place]) (08714) Comment: Performed By: #### UA, UAMIC AO ####[address] [place], [place] [address] UA Appear CLEAR Normal 09-16-2017 [facility] ([place]) ([id number]) Comment: Performed By: #### UA, UAMIC AO ####[address] [place], [place] [address] UA Blood MODERATE Normal 09-16-2017 [facility] ([place]) ([id number]) Comment: Performed By: #### UA, UAMIC AO ####[address] [place], [place] [address] UA Leuk Est NEGATIVE Normal 09-16-2017 [facility] ([place]) (58003) Comment: Performed By: #### UA, UAMIC AO ####[address] [place], [place] [address] UA Nitrite NEGATIVE Normal 09-16-2017 [facility] ([place]) ([id number]) Comment: Performed By: #### UA, UAMIC AO [address] [place], [place] [address] UA pH 5.5 Normal 09-16-2017 [facility] ([place]) ([id number]) Comment: Performed By: #### UA, UAMIC AO [address] [place], [place] [address] UA Protein NEGATIVE Normal 09-16-2017 [facility] ([place]) ([id number]) Comment: Performed By: #### UA, UAMIC AO [address] [place], [place] [address] UA Spec Grav >=1.030 Invalid Interpretation Code 09-16-2017 [facility] ([place]) ([id number]) Comment: Performed By: #### UA, UAMIC AO [address] [place], [place] [address] UA Specimen Type Clean Catch Normal 09-16-2017 [facility] ([place]) ([id number]) Comment: Performed By: #### UA, UAMIC AO ####[id number] [place], [place] [address] UA Urobilinogen 0.2 E.U./dL Normal 09-16-2017 [facility] ([place]) (44092) Comment: Performed By: #### UA, UAMIC AO ####[address] [place], [place] [address] Urobilinogen Test strip Qn (U) SMALL Normal 09-16-2017 [facility] ([place]) (0000 0) Comment: Performed By: #### UA, UAMIC AO ####[address] [place], [place] [address] pregu on 2017-09-16 HCG ( test) Ql (U) Negative Normal [facility] ([place]) (0000 0) Comment: Performed By: #### PREGU ### #[address] [place], [place] [address] test HCG not Invalid 09-16-2017 [facility] (u) int detected. Interpretation [facility] ([id number]) Comment: Performed By: #### PREGU ### [id number] [place], [place] [address] patient summary documents on 2017-09-16 Patient Summary Documents Normal 08-29 [facility] ([place]) ([id number]) [facility] on [facility] Normal 09-16-2017 [facility]) ([id number]) [place] [facility] note on 2017-09-16 [facility] Note Normal 0 09-16-2017 [facility] ([place]) ([id number]) .urinalysis microscopic (ao) on 2017-09-16 RBC Test strip LOADED None Seen Invalid Interpretation [facility] #/vol (U) Code [facility] (52825) Comment: Performed By: #### UA, UAMIC AO ####[id number] [place], [place] [address] UA Squam 0-5 None Seen Invalid Interpretation 018 [facility] ([place]) (10719) Comment: Performed By: #### UA, UAMIC AO ####[id number] [place], [place] [address] UA WBC None Seen None Seen Normal 09-16-2017 [facility] ([place]) (94247) Comment: Performed By: #### UA, UAMIC AO ####[address] [place], [place] [address] Encounters Date Type Reason Provider Location 04-16-2019 - Emergency department Pain in right GARRET D Christo donohue 04-16-2019 patient visit wrist MARIANNA [facility] Nasreen CABRAL ([id number]) MILY GOMEZ UNKNOWN PROVIDER 03-27-2018 - Emergency department CHERELLE RUBIO Facil ity:B 03-27-2018 patient visit MILY RETA 09-16-2017 - Emergency department DEVIN BECKETT Facili ty:B 09-16-2017 patient visit MILY RETA 02-16-2018 Patient encounter Mirza Lopez Facili ty:9497 Rezaee REFERRED *SELF 09-27-2018 - Patient encounter MILY [facility] 09-28-2018 procedure Thomas (0000 0) 08-01-2018 - Patient encounter SARAI (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 ([id number]) SELF PAY [facility] [place] ([id number]) [id number] [facility] [place] ([id number]) [id number] [facility] [place] ([address]83) [id number] [facility] (75086) The following information is from the original human readable contentNo Payer Records FoundNo Payer Records FoundNo Payer Records Found Summary Purpose Family History No Family History Records FoundNo Family History Records FoundNo Family History Records FoundNo Family History Records FoundNo Family History Records Found Advance Directives No Advanced Directives Records FoundNo Advanced Directives Records FoundNo Advanced Directives Records FoundNo Advanced Directives Records FoundNo Advanced Directives Records Found Additional Source Comments FOR RECORDS PERTAINING TO PATIENTS WHO ARE OR HAVE BEEN ENROLLED IN A CHEMICAL DEPENDENCY/SUBSTANCE ABUSE PROGRAM, SOME INFORMATION MAY BE OMITTED. This clinical summary was aggregated from multiple sources. Caution should be exercised in using it in the provision of clinical care. This summary normalizes information from multiple sources, and as a consequence, information in this document may materially changethe coding, format and clinical context of patient data. In addition, data may be omittedin some cases. CLINICAL DECISIONS SHOULD BE BASED ON THE PRIMARY CLINICAL RECORDS. [facility] provides no warranty or guarantee of the accuracy or completeness of information in this document. UNRECOGNIZED CONTENT PROVIDED BELOW FOR UNRECOGNIZED SECTION INFORMATION SOURCE DATE CREATED AUTHOR AUTHOR'S ORGANIZATIO N 03/15/2018 [facility] DATE CREATED AUTHOR AUTHOR'S ORGANIZATIO N 03/16/2018 [employer] DATE CREATED AUTHOR AUTHOR'S ORGANIZATIO N 04/30/2018 [facility] [place] DATE CREATED AUTHOR AUTHOR'S ORGANIZATIO N 10/05/2018 [facility] DATE CREATED AUTHOR AUTHOR'S ORGANIZATIO N 04/20/2019 [facility]
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
== END 2019-10-29 23:57 | disposition home or self-care (01) ==
PROVIDERS: Emergency Provider Emergency Medicine; PCP Family Medicine
DX: N39.0 Urinary tract infection, site not specified (principal); F17.200 Nicotine dependence, unspecified, uncomplicated
CPT/HCPCS: 81001; 99283; A4216

== ENCOUNTER 2020-01-16 12:47 | Emergency (ER) | payer MEDICAID, SELFPAY ==
[2020-01-16 12:48] VITALS: BP 115/70; PULSE 102; RESP 16; TEMP 37.3; O2SAT 100; BMI 19.0
--- NOTE | 2020-01-16 13:01 | CT_ITS ---
STUDY: CT ABDOMEN AND PELVIS WITHOUT CONTRAST REASON FOR EXAM: Female, 34 years old. RT FLANK PAIN, HX KS, HEMATURIA, TUBAL LIGATION RADIATION DOSAGE (If Supplied By Facility): CTDIvol = ( 6.49 ) mGy, DLP = ( 281.91 ) mGycm TECHNIQUE: Transaxial images were obtained from the dome of the diaphragm to the symphysis pubis without oral contrast, and without intravenous contrast. Sagittal and coronal images were reconstructed. Individualized dose optimization techniques were used for this CT. COMPARISON: None. FINDINGS: The visualized lung bases are unremarkable. The visualized portions of the heart are within normal limits. Normal liver. Normal gallbladder and extrahepatic biliary system. Normal spleen. Normal pancreas. Normal bilateral adrenal glands. Normal right kidney. Normal left kidney. Normal visualized stomach. Normal small intestine. Normal colon. The appendix is visualized and appears normal. Normal abdominal aorta. Normal inferior vena cava. Normal retroperitoneum. Normal urinary bladder. Intrauterine device within the uterus. Status post bilateral tubal ligation. Normal abdominal wall. Normal osseous structures. CT/Abdomen/Pelvis without Cont IMPRESSION: Normal unenhanced CT of the abdomen and pelvis. Electronically Signed: Alexey Vanegas MD at 13:57 EDT Tel , Service support ,
--- NOTE | 2020-01-16 13:02 | ED.VISSUMM ---
- ER Visit Summary Date of Service: 01/16/20 Chief Complaint: [Right flank pain] History of Present Illness: The patient is a 34 F [presents the emergency department complaint of pain in her right side that started yesterday around 5 PM. Patient states that she kind of felt hot and cold with it. She denies any dysuria. She has noted some blood in her urine. She denies any fever. Patient has history of kidney stones and feels similar. 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 Patient does have history of bipolar disorder and history of depression. Patient denies any injury to her back.] Physical Examination: [HEENT-PERRLA, EOMI. Cranial nerves II through XII grossly intact. TMs clear. Mucous membranes moist. No adenopathy. Cardiovascular-regular rate and rhythm without murmur or ectopy Lungs-clear to auscultation, chest wall stable without crepitus or subcu emphysema Abdomen-normoactive bowel sounds, soft. Patient has tenderness to palpation over the right lower quadrant as well as CVA tenderness on the right. There is no rebound, rigidity, or peritoneal signs. Extremities-intact ?4, normal range of motion, normal pulses, atraumatic] Test Results: [CBC with differential obtained showed a white count 7.8, hemoglobin 14, hematocrit 41, plates 154. Chemistries unremarkable other than slightly depressed potassium at 3.3. Urinalysis was positive for nitrites and 100 cassette esterase as well as 10-25 WBCs and 10-25 RBCs and +2 bacteria.] Emergency Department Course and Treatment: [Patient received Toradol IV on presentation. Patient received Bactrim DS 1 p.o. as well as Azo p.o.] Treatment Plan: [Patient will be treated with Pyridium as well as Bactrim. Patient advised to follow-up with primary care physician in 3 to 5 days. Patient advised to return if fever, vomiting, or condition should worsen anyway.] Disposition: [Discharged home in stable condition] Impression: [Urinary tract infection Flank pain] This note was generated with [employer] dictation software. It may contain incorrect words, spelling, and punctuation that were not noted in review of the chart prior to signing ED Disposition - Plan for ED Patient: Referrals: Derek Gomez MD [Primary Care Provider] -
[2020-01-16] MEDS: Ketorolac 30 MG/ML Syringe IV (13:16)
[2020-01-16] MEDS: 0.9% Normal Saline 1,000 ML 125 ML IV (13:16)
[2020-01-16 13:41] LABS: Absolute Lymphocyte Count 1.07 X10^3/uL (0.83-4.51); Absolute Neutrophil Count 5.8 X10^3/uL (2.0-7.7); Basophil# 0.02 X10^3/uL; Basophil% 0.3 % (0-1); Eosinophil# 0.03 X10^3/uL; Eosinophils% 0.4 % (0-5); Hemoglobin 14.1 g/dL (12.0-15.0); Lymphocyte # 1.07 X10^3/ul (4.0); Lymphocyte % 13.8 % (19-41); Mean Corp Hgb Conc 34.4 g/dL (32-36); Mean Corpuscular Hgb 32.9 pg (27.0-32.0); Mean Corpuscular Volume 95.8 fL (81-99); Mean Platelet Vol. 12.2 fl (6.2-12.0); Monocyte# 0.85 X10^3/uL; Monocyte% 10.9 % (0-10); NRBC Flagged by Analyzer 0 % (0-5); Neutrophil # 5.78 X10^3/uL (2.7-7.7); Neutrophil % 74.2 % (47-70); Platelet Count 154 K/mm3 (150-450); RBC Distribution Width CV 11.7 % (11.6-14.6); RBC Distribution Width SD 40.9 fl (35.1-43.9); Red Blood Count 4.28 M/mm3 (4.2-5.4); White Blood Count 7.8 K/mm3 (4.4-11.0)
[2020-01-16 13:48] LABS: Color, Urine Yellow (Yellow); Glucose, Dipstick Normal (Normal); Ketone-Dipstick 5 mg/dl (Negative); Leukocyte Esterase-Dipstick 100 /ul (Negative); Nitrite-Dipstick Positive (Negative); Occult Blood-Urine 150 /ul (Negative); Protein-Dipstick 30 mg/dl (Negative); Specific Gravity, Urine 1.025 (1.002-1.030); Urine Clarity Cloudy (Clear); Urine Urobilinogen 1 mg/dl (Normal)
[2020-01-16 13:50] LABS: Anion Gap 3 (5-15); BUN 11 mg/dL (7-18); BUN/Creat Ratio 14.9 RATIO (10-20); Calcium,Total 8.7 mg/dL (8.5-10.1); Chloride 102 mmol/L (98-107); Creatinine, Serum 0.74 mg/dL (0.55-1.02); EST Glomerular Filtration Rate 95 mL/min (>60); Est Glom Filt Rate - Afr Amer 115 mL/min (>60); Estimated Creatinine Clearance 95.15 ml/min; Glucose 109 mg/dL (74-106); Potassium 3.3 mmol/L (3.5-5.1); Sodium Level 135 mmol/L (136-145)
[2020-01-16 14:06] LABS: Urine Bilirubin Dipstick 1 mg/dL (Negative)
[2020-01-16 14:08] LABS: Bacteria 2+ /hpf (None Seen); Mucous, Urine 1+ /hpf (<or=2+); Red Blood Cells-Urine 10-25 SEEN /hpf (0-5); Squamous Epithelial Cells - UA 0-5 SEEN /hpf (5-10); White Blood Cells 10-25 SEEN /hpf (0-5)
--- NOTE | 2020-01-16 14:20 | ED.DEP ---
ED Disposition - Plan for ED Patient: Instructions: ED CYSTITIS Female Adult Prescriptions: Smz/Tmp Ds [Bactrim Ds] 1 tab PO BID #14 tab Prescription Printed Phenazopyridine HCl [Pyridium] 200 mg PO TID #10 tab Prescription Printed Referrals: Derek Gomez MD [Primary Care Provider] - 3-5 Days
[2020-01-16] MEDS: Smz/Tmp Ds Tablet 1 TABLET PO (14:29)
[2020-01-16] MEDS: Phenazopyridine 95 MG Tablet 190 MG PO (14:29)
[2020-01-16 14:38] VITALS: BP 104/64; PULSE 71; RESP 18; O2SAT 99
== END 2020-01-16 14:38 | disposition home or self-care (01) ==
LOC: ED 13:40
PROVIDERS: Emergency Provider Emergency Medicine; PCP Family Medicine
DX: N39.0 Urinary tract infection, site not specified (principal); R10.9 Unspecified abdominal pain; F17.200 Nicotine dependence, unspecified, uncomplicated; Z87.442 Personal history of urinary calculi
CPT/HCPCS: 74176; 80048; 81001; 85025; 96374; 99284; J7030; A4216

== ENCOUNTER 2020-03-21 17:56 | Emergency (ER) | payer MEDICAID, SELFPAY ==
[2020-03-21 17:57] VITALS: BP 106/71; PULSE 69; RESP 15; TEMP 36.5; O2SAT 98; BMI 19.8
--- NOTE | 2020-03-21 19:52 | ED.VIS.GEN ---
History of Present Illness Chief Complaint: General Illness Informant: Patient Narrative: Patient states that she was at work. 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 She was sent home. She needs a note saying that she can return to work. She states that she feels fine. She had a Little Nathalia while waiting in the triage area. She denies any other symptoms. - Past Medical History (1) Bipolar disorder Status: Chronic (2) Tobacco use Status: Chronic Past Medical History - Allergies and Home Meds Allergies/Adverse Reactions: Allergies tramadol Allergy (Verified 03/21/20 17:59) Hives SLO-FE Allergy (Unknown, Uncoded 03/21/20 17:59) Hives Primary Care Physician: Derek Gomez MD [Primary Care Provider] - Prior records reviewed: Yes Surgical History: - - LEEP, BLTL, teeth removal, tubal ligation, DNC Smoking Status: Current every day smoker Drugs: None - Family History Maternal Family History: Reports: Hypertension Paternal Family History: Reports: Hypertension Review of Systems General: Denies: Chills, Fever, Sweats Eyes: Denies: Visual changes - bilaterally, Diplopia ENT: Denies: Rhinorrhea, Sore throat Cardiovascular: Denies: Chest pain, Palpitations Respiratory: Denies: Dyspnea, Cough, Dyspnea on exertion Gastrointestinal: Reports: Nausea, Vomiting. Denies: Abdominal pain, Diarrhea, Melena, Hematochezia Genitourinary: Denies: Dysuria, Hematuria, Frequency Musculoskeletal: Denies: Back pain, Extremity Pain Skin: Denies: Rash, Wounds Neurological: Denies: Headache, Weakness, Numbness Psych: Reports: Anxiety Physical Exam Vital Signs/Narrative: Vital Signs Temp Pulse Resp BP Pulse Ox 03/21/20 17:57 97.7 F L 69 15 106/71 98 Inital Vital Signs reviewed: Yes General: Well nourished, Well developed, No Acute Distress Head: Normocephalic, Atraumatic Eyes: Perrl, EOMI ENT: Moist mucous membranes, No rhinorrhea Neck: Supple, Nontender Cardiovascular: Regular rate, Regular rhythm, No murmurs Respiratory: No distress, CTA bilaterally, Chest nontender Abdomen: Soft, Nontender, Nondistended, Normal bowel sounds Back: Nontender, Normal Inspection Extremities: Nontender, No edema Skin: Normal color, No rash Neurological: Alert, Oriented x3, Cranial nerves II-XII grossly intact, Normal Strength, Normal Sensation Psychological: Normal affect, Normal Mood Diagnostic/Tx/Re-eval - Medical Decision Making Patient's exam is benign. Her vital signs are stable. She tells me she has no other symptoms. At this point I do not see a reason why she cannot return to work. ED Disposition - Plan for ED Patient: Disposition: Home or Assisted Living Diagnosis: Anxiety reaction, Vomiting Instructions: ED Stress React Referrals: Derek Gomez MD [Primary Care Provider] - As Needed
[2020-03-21 20:17] VITALS: PULSE 64; RESP 16; O2SAT 100
== END 2020-03-21 20:18 | disposition home or self-care (01) ==
LOC: ED 20:01
PROVIDERS: Emergency Provider Emergency Medicine; PCP Family Medicine
DX: F41.1 Generalized anxiety disorder (principal); R11.10 Vomiting, unspecified; F17.200 Nicotine dependence, unspecified, uncomplicated
CPT/HCPCS: 99281; J7030; A4216

== ENCOUNTER 2022-01-03 21:13 | Emergency (ER) | payer MEDICAID, SELFPAY ==
[2022-01-03 21:14] VITALS: BP 99/68; PULSE 71; RESP 99; TEMP 36.4; BMI 23.6
--- NOTE | 2022-01-03 22:08 | EX.ED.DYSGE1 ---
HPI History of Present Illness Chief Complaint: Other, Pain/Inj Narrative Narrative: Patient is a 36-year-old female with past medical history of depression and bipolar disorder as well as intestinal polyps. She states over the last 1 to 2 days she has noticed pain and a lump in the rectal region. She denies any fevers chills or discharge from the area. She states that she feels that the pain worsened today and secondary to this she comes in for evaluation. [facility] Medical History Anxiety Cancer COPD (chronic obstructive pulmonary disease) Drug abuse in remission Home Medications hydrocortisone 1 %-pramoxine 1 % rectal foam (Proctofoam HC) 1 applic [place] BID 10 days #10 grams 01/03/22 [Rx Last Taken Unknown] Allergy/AdvReac Type Severity Reaction Status Date / Time tramadol Allergy Hives Verified 01/03/22 21:18 SLO-FE Allergy Unknown Hives Uncoded 03/21/20 17:59 Social History Smoking Status: Current every day smoker tobacco type: cigarettes ROS ROS ED Constitutional Constitutional ED: Denies chills or fever(s) ENT ENT ED: Denies sore throat Cardiovascular Cardiovascular: Denies chest pain Respiratory/Chest Respiratory/Chest: Denies cough or dyspnea Gastrointestinal Gastrointestinal: Denies abdominal pain, diarrhea, nausea or vomiting Genitourinary Genitourinary ED: Reports other Details: Positive rectal pain ; Denies dysuria Musculoskeletal Musculoskeletal: Denies myalgias Integumentary Denies rash Neurologic Neurologic: Denies headache(s) Hematologic/Lymphatic Hematologic/Lymphatic: Denies easy bleeding or easy bruising EXAM Physical Exam Const Vital Signs: 01/03/22 21:14 Temperature 97.6 F L Temperature Source Temporal Pulse Rate 71 Respiratory Rate 99 H Blood Pressure 99/68 Blood Pressure Mean 78 Oxygen Delivery Method Room Air Positive well nourished and well developed General Appearance ED: well developed Eyes PERRL and EOMs intact bilaterally Neck supple Resp normal respiratory effort and clear to auscultation bilaterally Cardio regular rate and regular rhythm GI normal to inspection, nondistended, normoactive bowel sounds, non-tender and non-distended Auscultation: normoactive bowel sounds Palpation: soft Narrative: Around the 7 to 8 o'clock position of the rectum there is a nonbleeding but small approximately half centimeter thrombosed hemorrhoid. There is no surrounding signs of infection no discharge or anal fissure noted Extremity normal to inspection Neuro oriented x3 and CN's II-XII intact bilaterally Sensorium / Orientation: alert Psych mental status grossly normal Skin no rashes or lesions noted MDM MDM MDM Narrative Medical decision making narrative: Patient presented to the ER afebrile and in no acute distress. Her physical exam shows a small thrombosed external hemorrhoid. I discussed that we should incise and drain the area at this time to help resolve pain. Patient does not want that performed at this time. Therefore patient will be advised to use warm sitz bath's as well as placed on Proctofoam to try to help shrink the area and resolve her symptoms. She states she understands that this may not work and she might have to return to the hospital for incision and drainage. Patient still wishes to try the symptomatic treatment at this time and avoid an I&D. Therefore the Proctofoam will be prescribed and patient will be discharged home and advised to return should symptoms fail to improve or worsen. Discharge Plan Triage Chief Complaint: Other, Pain/Inj ED Provider: Gunner Sidhu Dx/Rx/DC Orders Clinical Impression: External hemorrhoid, thrombosed Instructions: Thrombosed Hemorrhoids, ED Hemorrhoids Prescriptions: New Proctofoam HC 1-1 % foam 1 applic [place] BID 10 Days Qty: 10 1RF Primary Care Provider: Derek Gomez Referrals: Derek Gomez MD [Primary Care Provider] - Activity Restrictions/Additional Instructions: Please continue with warm sitz bath and use the Proctofoam as directed to help try and resolve your external hemorrhoid. If there is no improvement after 7 to 10 days you may need to return to the ER for incision and drainage. Disposition Disposition: Home, Self Care
== END 2022-01-03 22:22 | disposition home or self-care (01) ==
LOC: ED 22:19
PROVIDERS: Emergency Provider Emergency Medicine; PCP Family Medicine; Visit Provider Emergency Medicine
DX: K64.5 Perianal venous thrombosis (principal); F17.210 Nicotine dependence, cigarettes, uncomplicated
CPT/HCPCS: 99282

== ENCOUNTER 2022-03-19 21:09 | Emergency (ER) | payer MEDICAID, SELFPAY ==
[2022-03-19 21:10] VITALS: BP 120/81; PULSE 83; RESP 16; TEMP 36; O2SAT 100; BMI 21.6
[2022-03-19 21:12] VITALS: BP 120/81; PULSE 83; RESP 16; TEMP 36; O2SAT 100
--- NOTE | 2022-03-19 21:26 | CT_ITS ---
INDICATION: RLQ pain EXAMINATION: CT ABDOMEN AND PELVIS WITH CONTRAST - CT Abdomen And Pelvis W/ Contrast Injection TECHNIQUE: Helically acquired images were obtained of the abdomen and pelvis following IV contrast. A radiation dose optimization technique was used for this scan. IV Contrast dosage and agent: 100 cc Isovue-300 Oral contrast: Yes COMPARISON: 01/16/2020 FINDINGS: LOWER CHEST: Lung bases are clear. No cardiomegaly or pericardial effusion. LIVER: 2 cm low-attenuation lesion right lobe posteriorly with suggestion of peripheral puddling enhancement. GALLBLADDER AND BILIARY TREE: No calcified gallstones. No gallbladder distension or wall edema. No intra- or extrahepatic biliary ductal dilation. PANCREAS: No focal cystic or solid mass. SPLEEN: Normal size without focal cystic or solid mass. ADRENAL GLANDS: No nodules. KIDNEYS AND URETERS: Normal renal size and position. No hydronephrosis. PERITONEUM: No ascites or free air. BOWEL: Normal appendix. No stomach or bowel distension. No focal inflammatory change. Diffusely increased colonic fecal burden. LYMPH NODES: No enlarged mesenteric or retroperitoneal lymph nodes. VESSELS: Aorta is non-dilated. URINARY BLADDER: Unremarkable. REPRODUCTIVE ORGANS: IUD in place. ABDOMINAL WALL: No discrete abdominal or pelvic wall hernia. BONES: Unremarkable. CT/Abdomen/Pelvis WITH Contrast IMPRESSION: No acute findings in the abdomen or pelvis. Colonic fecal burden consistent with clinical constipation. 2 cm lesion in the right hepatic lobe, likely small hemangioma but cannot be fully characterized on single phase study. Recommend follow-up hepatic ultrasound or multiphasic hepatic CT for further evaluation. Electronically Signed: Derrek Barraza MD at 0:03 EDT ,
--- NOTE | 2022-03-19 21:27 | EDS_ITS ---
HPI HPI - GI History of Present Illness Chief Complaint: Abd Pain Informant: patient Narrative Narrative: Progressive right sided right lower abdominal pain since yesterday evening. No vomiting or diarrhea. Normal bowel movement. No fevers. No urinary symptoms. History of tubal ligation along with Mirena placement. Reports to me during discussion she had a colonoscopy at [facility] 8 months ago incomplete bowel prep, however had polypectomy had concerns for cancerous findings. She did not follow-up with this. There is cancer runs in the family. Allergies tramadol have as tolerated morphine in the past. No urinary symptoms. PFSH PFSH Medical History Anxiety Cancer COPD (chronic obstructive pulmonary disease) Drug abuse in remission Home Medications hydrocortisone 1 %-pramoxine 1 % rectal foam (Proctofoam HC) 1 applic SD BID 10 days #10 grams 01/03/22 [Rx Last Taken Unknown] polyethylene glycol 3350 17 gram/dose oral powder (Miralax) 17 g PO BID #238 grams 03/20/22 [Rx Last Taken Unknown] Allergy/AdvReac Type Severity Reaction Status Date / Time tramadol Allergy Hives Verified 01/03/22 21:18 SLO-FE Allergy Unknown Hives Uncoded 03/21/20 17:59 Social History Smoking Status: Current every day smoker tobacco type: cigarettes ROS ROS ED Constitutional Constitutional ED: Denies chills, fever(s) or sweats Eyes Eyes: Denies change in vision ENT ENT ED: Denies dysphagia or sore throat Cardiovascular Cardiovascular: Denies chest pain, leg edema, palpitations or racing heartbeat Respiratory/Chest Respiratory/Chest: Denies cough, dyspnea or dyspnea on exertion Gastrointestinal Gastrointestinal: Reports abdominal pain; Denies diarrhea, nausea or vomiting Genitourinary Genitourinary ED: Denies dysuria, hematuria or urinary frequency Musculoskeletal Musculoskeletal: Denies back pain, extremity pain or neck pain Integumentary Denies rash or wounds Neurologic Neurologic: Denies headache(s), paresthesias or weakness EXAM Physical Exam Const Vital Signs: 03/19/22 21:10 03/19/22 21:12 Temperature 96.8 F L 96.8 F L Temperature Source Temporal Temporal Pulse Rate 83 83 Respiratory Rate 16 16 Blood Pressure 120/81 H 120/81 H Blood Pressure Mean 94 94 Pulse Ox 100 100 Oxygen Delivery Method Room Air Room Air Positive well nourished and well developed General Appearance ED: well developed and NAD HEENT Reports moist mucous membranes normocephalic and atraumatic Eyes PERRL, EOMs intact bilaterally and conjunctivae normal General Eye ED: Yes normal appearance of both eyes Neck no lymphadenopathy and supple General: Negative for tenderness Chest Wall Chest: Negative for tenderness Resp normal respiratory effort and normal air movement Effort and Inspection: symmetric chest movement; Negative for respiratory distress Cardio regular rate, regular rhythm and no murmurs Peripheral Pulses: pulses 2+ throughout GI normal to inspection, nondistended, normoactive bowel sounds GI Narrative: Negative Fletcher's tender palpation right lower pain in lower quadrants and side region. There is no rash. Palpation: Negative for guarding or rebound tenderness present Back/Spine no CVA tenderness and no thoracic nor lumbar tenderness Extremity normal to inspection General Extremety ED: Negative for edema or tenderness General Extremity: Negative for edema Neuro oriented x3 and no sensory deficits noted Sensorium / Orientation: awake and alert Skin no rashes or lesions noted and no wounds MDM MDM MDM Narrative Medical decision making narrative: Patient tender right lower quadrant. IV established labs were drawn. Hemoglob in 14.2. White count 6.9. Creatinine 0.75 so the of 140 potassium 2.9. Normal liver enzymes. hCG negative. With her reported potential abnormal colonoscopy, contrast CT scan obtained for clear evaluation. Her appendix was normal. Noted a 2 cm right lobe liver lesion. Condition constipation noted. Discussed findings with the patient. She does not recall when her last bowel movement is not normal. I discussed liver lesion and importance for her to follow-up with her PCP for outpatient evaluation and further testing. Also call and follow-up with her GI for her abnormal colonoscopy or her PCP to coordinate care. Discussed return precautions. She is placed on MiraLAX for her constipation. All her questions were answered. Lab Data Attestation: I reviewed the patient's lab results. Labs: Laboratory Results - last 24 hr 03/19/22 03/19/22 03/19/22 21:35 21:35 21:35 WBC 6.9 RBC 4.22 Hgb 14.2 Hct 40.1 MCV 95.0 MCH 33.6 H MCHC 35.4 RDW Std Deviation 41.1 RDW Coeff of [place] 11.9 Plt Count 201 MPV 11.3 Immature Gran % (Auto) 0.100 Neut % (Auto) 50.0 Lymph % (Auto) 39.5 [place] % (Auto) 7.8 Eos % (Auto) 1.9 Baso % (Auto) 0.7 Absolute Neuts (auto) 3.4 Absolute Lymphs (auto) 2.72 Nucleated RBC % 0 Sodium 140 Potassium 2.9 L Chloride 106 Carbon Dioxide 29.0 Anion Gap 5 BUN 13 Creatinine 0.75 Estim Creat Clear Calc 103.60 Est GFR (MDRD) Af Amer 111 Est GFR (MDRD) Non-Af 92 BUN/Creatinine Ratio 17.3 Glucose 96 Calcium 9.4 Total Bilirubin 0.30 Direct Bilirubin 0.11 AST 15 ALT 18 Alkaline Phosphatase 82 Total Protein 8.5 H Albumin 4.0 Globulin 4.5 H Albumin/Globulin Ratio 0.9 Serum , Qual NEGATIVE Radiography Diagnostic Testing: Clinical Impression(s) from Imaging Studies Abdomen/Pelvis CT 03/19/22 21:26 IMPRESSION: No acute findings in the abdomen or pelvis. Colonic fecal burden consistent with clinical constipation. 2 cm lesion in the right hepatic lobe, likely small hemangioma but cannot be fully characterized on single phase study. Recommend follow-up hepatic ultrasound or multiphasic hepatic CT for further evaluation. Electronically Signed: Derrek Barraza MD at 0:03 EDT Reading Location ID and State: [address] [place] [address] Tel , Service support , Discharge Plan Triage Chief Complaint: Abd Pain ED Provider: Eric Salcido Dx/Rx/DC Orders Clinical Impression: Abdominal pain, RLQ, Liver lesion, right lobe, Constipation Instructions: Abdominal Pain, ED Constipation (Adult) Prescriptions: New polyethylene glycol 3350 [Miralax] 17 gram/dose powder 17 g PO BID Qty: 238 0RF No Action Proctofoam HC 1-1 % foam 1 applic SD BID 10 Days Qty: 10 1RF Primary Care Provider: Derek Gomez Referrals: Derek Gomez MD [Primary Care Provider] - 3-5 Days Activity Restrictions/Additional Instructions: CT scan normal appendix constipation seen. You have a 2 cm right liver lesion that needs further imagings and work-up as an outpatient. In addition reported you had colonoscopy with a polypectomy that was abnormal from GI 8 months ago from [facility]. You need to follow-up with GI for further retesting or see your PCP to help coordinate care. Take MiraLAX as prescribed. Disposition Disposition: Home, Self Care
[2022-03-19] MEDS: 0.9% Normal Saline 1,000 ML 125 ML IV (21:39)
[2022-03-19] MEDS: Ondansetron 4 MG/2 ML Vial IV (21:39)
[2022-03-19] MEDS: Morphine 4 MG/ML Syringe IV (21:39)
[2022-03-19 21:47] LABS: Absolute Lymphocyte Count 2.72 X10^3/uL (0.83-4.51); Absolute Neutrophil Count 3.4 X10^3/uL (2.0-7.7); Basophil# 0.05 X10^3/uL; Basophil% 0.7 % (0-1); Eosinophil# 0.13 X10^3/uL; Eosinophils% 1.9 % (0-5); Hematocrit 40.1 % (37-47); Hemoglobin 14.2 g/dL (12.0-15.0); Lymphocyte # 2.72 X10^3/ul (0.83-4.51); Lymphocyte % 39.5 % (19-41); Mean Corp Hgb Conc 35.4 g/dL (32-36); Mean Corpuscular Hgb 33.6 pg (27.0-32.0); Mean Platelet Vol. 11.3 fl (6.2-12.0); Monocyte# 0.54 X10^3/uL; Monocyte% 7.8 % (0-10); NRBC Flagged by Analyzer 0 % (0-5); Neutrophil # 3.44 X10^3/uL (2.7-7.7); Platelet Count 201 K/mm3 (150-450); RBC Distribution Width CV 11.9 % (11.6-14.6); RBC Distribution Width SD 41.1 fl (35.1-43.9); Red Blood Count 4.22 M/mm3 (4.2-5.4); White Blood Count 6.9 K/mm3 (4.4-11.0)
[2022-03-19 22:06] LABS: Internal QC Validated? YES +Cl - CLEAR BKGD; Pregnancy, Serum, hCG Quali. NEGATIVE Negative
[2022-03-19 22:13] LABS: ALB/GLOB Ratio 0.9 RATIO (0.9-2.4); AST(SGOT) 15 U/L (15-37); Alanine Aminotransfer ALT/SGPT 18 U/L (13-56); Alkaline Phosphatase 82 U/L (45-117); Anion Gap 5 (5-15); BUN 13 mg/dL (7-18); BUN/Creat Ratio 17.3 RATIO (10-20); Bilirubin, Direct 0.11 mg/dL (0.00-0.30); Calcium,Total 9.4 mg/dL (8.5-10.1); Chloride 106 mmol/L (98-107); Creatinine, Serum 0.75 mg/dL (0.55-1.02); EST Glomerular Filtration Rate 92 mL/min (>60); Est Glom Filt Rate - Afr Amer 111 mL/min (>60); Globulin 4.5 g/dL (2.2-4.2); Glucose 96 mg/dL (74-106); Potassium 2.9 mmol/L (3.5-5.1); Protein, Total 8.5 g/dL (6.4-8.2); Sodium Level 140 mmol/L (136-145)
[2022-03-20 00:45] VITALS: BP 120/81; PULSE 83; RESP 16; O2SAT 100
== END 2022-03-20 00:46 | disposition home or self-care (01) ==
PROVIDERS: Emergency Provider Emergency Medicine; PCP Family Medicine; Visit Provider Emergency Medicine
DX: R10.31 Right lower quadrant pain (principal); K76.9 Liver disease, unspecified; K59.00 Constipation, unspecified; F17.210 Nicotine dependence, cigarettes, uncomplicated
CPT/HCPCS: 74177; 80053; 80076; 84703; 85025; 96374; 96375; 99283; J7030; Q9967; A4216; J2405

== ENCOUNTER → 2022-07-01 | Outpatient (CLI) | payer MEDICAID, SELFPAY ==
--- NOTE | 2022-07-01 12:50 | VDLE_ITS ---
Reason For Study: Swelling/pain RIGHT LEFT GSV is normal. GSV is normal. CFV is compressible, spontaneous, phasic, CFV is compressible, spontaneous, phasic, competent and demonstrates normal competent, and demonstrates normal augmentation. augmentation. FV is compressible, spontaneous, phasic, FV is compressible, spontaneous, phasic, competent and demonstrates normal competent and demonstrates normal augmentation. augmentation. POP V is compressible, spontaneous, phasic, POP V is compressible, spontaneous, phasic, competent and demonstrates normal competent and demonstrates normal augmentation. augmentation. T/P Trunk is compressible. T/P Trunk is compressible. PTV is compressible. PTV is compressible. RT PerV is compressible. LT PerV is compressible. Procedure This is a venous duplex using B-mode, color flow and spectral Doppler. Exam performed in department. A preliminary report was called and/or faxed to Jason. VL/Venous Duplex US - Sánchez Extrem Interpretation Summary No evidence for acute deep venous thrombosis bilateral lower extremities with p atent and compressible bilateral great saphenous veins. Ordering Physician: Derek Gomez Referring Physician: Derek Gomez Performed By: Cristina Devi RVT
== END | disposition home or self-care (01) ==
LOC: CVS 12:48
PROVIDERS: PCP Family Medicine; Visit Provider Family Medicine
DX: M79.604 Pain in right leg (principal); M79.605 Pain in left leg
CPT/HCPCS: 93970

== ENCOUNTER 2025-04-10 17:52 | Emergency (ER) | payer BC, SELFPAY ==
[2025-04-10 17:53] VITALS: BP 109/60; PULSE 101; RESP 24; TEMP 36.6; O2SAT 100; BMI 25.1
--- NOTE | 2025-04-10 20:03 | US_ITS ---
PROCEDURE: GALLBLADDER 04/10/2025 REASON FOR EXAM: RIGHT UPPER QUADRANT PAIN TECHNIQUE: Procedure Code: USGB Modality: US Procedure: GALLBLADDER COMPARISON: none FINDINGS: GALLBLADDER: multiple gallstones and mild sludge. No gallbladder wall thickening or pericholecystic fluid. Negative Fletcher sign. COMMON BILE DUCT: Measures 3 mm. No intrahepatic biliary dilatation. LIVER: Hepatomegaly to 17 cm. Normal echotexture. Echogenic lesions within the right hepatic lobe measuring 2.3 x 2.4 x 2 cm and 1 x 0.9 x 0.9 cm. RIGHT KIDNEY: Normal in size and echogenicity. No mass. No urinary stones. No hydronephrosis. Pancreas: Unremarkable. US/Gallbladder IMPRESSION: Echogenic lesions within the right hepatic lobe measuring 2.3 x 2.4 x 2 cm and 1 x 0.9 x 0.9 cm. Hepatomegaly to 17 cm. Cholelithiasis without acute cholecystitis. Reading Location: [facility]
--- NOTE | 2025-04-10 20:03 | EDS_ITS ---
HPI HPI - GI History of Present Illness Chief Complaint: Abd Pain Narrative Narrative: 39-year-old female states she was diagnosed with gallstones approximately 1 month ago presents with right upper quadrant pain, nausea and vomiting that she has had since yesterday evening. She states that she had eaten meatloaf then developed right upper quadrant abdominal pain. She has had 3 episodes of nonbloody vomiting. No fevers or chills, no diarrhea. She states that approximately 4 days ago she had an ultrasound and laboratory work performed by her primary care provider through the [facility]. She started having an episode of right upper quadrant pain yesterday evening. She called her primary care provider today who called her back a few hours ago and told her to come to the emergency department. She denies any exacerbating or alleviating factors but does state she thinks it tends to happen more when she eats. [facility] Medical History Drug abuse in remission Anxiety Cancer COPD (chronic obstructive pulmonary disease) Home Medications Medication Instructions Recorded Last Taken Type ergocalciferol (vitamin D2) 1,250 1,250 mcg PO QWEEK 1 06/10/24 Unknown History mcg (50,000 unit) capsule folic acid 400 mcg tablet 0.4 mg PO DAILY 04/10/25 Unk nown History triamcinolone acetonide 0.1 % topical 04/10/25 Unknown History topical ointment Allergy/AdvReac Type Severity Reaction Status Date / Time ferrous sulfate Allergy Hives Verified 04/10/25 17:53 tramadol Allergy Hives Verified 04/10/25 17:53 Social History Smoking Status: Current every day smoker tobacco type: cigarettes ROS ROS ED ROS Narrative Review of systems positive for nausea and vomiting, nonbloody, 3 episodes in the last 24 hours, positive right upper quadrant abdominal pain. No diarrhea, no fevers or chills. Worse after eating. EXAM Physical Exam Narrative Exam Narrative: Afebrile. Vital signs noted. Nontoxic-appearing. Cardiovascular examination reveals intermittent tachycardia. Lungs are clear to auscultation bilaterally. The abdomen is soft with tenderness in the right upper quadrant, no guarding or rebound. However, she has a questionable Fletcher sign. Positive bowel sounds. Neurological examination nonfocal, nonlateralizing. Const Vital Signs: 04/10/25 17:53 04/10/25 20:20 Temperature 97.9 F Temperature Source Oral Pulse Rate 101 H 72 Respiratory Rate 24 H 18 Blood Pressure 109/60 109/81 H Blood Pressure Mean 76 90 Pulse Ox 100 99 Oxygen Delivery Method Room Air MDM MDM MDM Narrative Medical decision making narrative: The differential diagnosis includes but not limited to biliary colic versus acute cholecystitis versus gallstone pancreatitis. Baseline laboratories were obtained per protocol including CBC, CMP, lipase, and test. I do feel that repeat ultrasound is indicated given her tenderness. She was administered morphine and ondansetron for analgesia. I reviewed her laboratory work and she has normal white count of 7.2 with hemoglobin normal at 13.9, hematocrit 40.3, platelet count normal at 191. Sodium is normal at 137 with potassium 3.5, LFTs are normal with a normal AST, ALT, and alk phos. Total bilirubin 0.36. Lipase normal at 39 so I doubt pancreatitis. Serum is negative. I reviewed the radiology report of the ultrasound of the gallbladder which does show cholelithiasis but no evidence of an acute cholecystitis. Upon repeat examination, patient feels markedly improved at approximately 2125. I discussed with her analgesia. Initially I was going to write [place] for her but in review of her problem list, she did have problems with addiction. 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 She does not want narcotic pain medication. Additionally, she states she has follow-up with a general surgeon 2 days from now on Tuesday. I feel she can be discharged safely home with follow- up. She was told to start a low-fat diet, starting with clear liquids and advance as tolerated. Return instructions to the emergency department were reviewed. Disposition is discharged home in stable condition. History & Record Review Discussion w/independent historian: Patient Lab Data Attestation: I reviewed the patient's lab results. Labs: Laboratory Results - last 24 hr 04/10/25 20:17 WBC 7.2 RBC 4.31 Hgb 13.9 Hct 40.3 MCV 93.5 MCH 32.3 H MCHC 34.5 RDW Std Deviation 41.4 RDW Coeff of [place] 11.9 Plt Count 191 MPV 11.2 Immature Gran % (Auto) 0.100 Neut % (Auto) 59.6 Lymph % (Auto) 28.4 [place] % (Auto) 9.7 Eos % (Auto) 1.5 Baso % (Auto) 0.7 Absolute Neuts (auto) 4.3 Absolute Lymphs (auto) 2.03 Nucleated RBC % 0 Sodium 137 Potassium 3.5 Chloride 103 Carbon Dioxide 23.7 Anion Gap 10 BUN 13 Creatinine 0.64 L Estim Creat Clear Calc 117.87 Est GFR (MDRD) Non-Af 114 BUN/Creatinine Ratio 20.1 H Glucose 103 H Calcium 9.2 Total Bilirubin 0.36 AST 21 ALT 15 Alkaline Phosphatase 96 Total Protein 7.4 Albumin 4.0 Globulin 3.4 Albumin/Globulin Ratio 1.1 Lipase 30 Serum , Qual NEGATIVE Radiography Diagnostic Testing: Clinical Impression(s) from Imaging Studies Gallbladder Ultrasound 04/10/25 20:03 IMPRESSION: Echogenic lesions within the right hepatic lobe measuring 2.3 x 2.4 x 2 cm and 1 x 0.9 x 0.9 cm. Hepatomegaly to 17 cm. Cholelithiasis without acute cholecystitis. Reading Location: [facility] Discharge Plan Triage Chief Complaint: Abd Pain ED Provider: Davy Darling Dx/Rx/DC Orders Clinical Impression: Biliary colic, Right upper quadrant abdominal pain, Gallstones Instructions: ED Gallstones with Biliary Colic Prescriptions: No Action folic acid 400 mcg tablet 0.4 mg PO DAILY triamcinolone acetonide 0.1 % ointment topical ergocalciferol (vitamin D2) 1,250 mcg (50,000 unit) capsule 1,250 mcg PO QWEEK Primary Care Provider: Derek Gomez Referrals: Derek Gomez MD [Primary Care Provider, Medical] Activity Restrictions/Additional Instructions: Follow-up with your general surgeon as scheduled on Tuesday, 2 days from now. Avoid foods that are high in fat. Clear liquid diet and advance as tolerated. Continue Tylenol or ibuprofen as needed for pain.. Return with fever, increased pain, new or worsening symptoms. Print Language: Tajik Disposition Disposition: Home, Self Care D/C Safety Score for UGIB Assessment Kourtney-Blatchford Bleeding Score (GBS): Stratifies upper GI bleeding patients who are "low-risk" and candidates for outpatient management. Hemoglobin, BUN, Recent Vital Signs: Hgb 13.9 g/dL (12.0-15.0) 04/10/25 20:17 BUN 13 mg/dL (4-19) 04/10/25 20:17 Pulse Rate 72 Blood Pressure 109/81 Score Interpretation: Score of 0: A GBS of 0 is a “Low Risk” GI bleed, and is highly sensitive (99.6% in a 2007 retrospective study) for predicting which patients did not require any “medical intervention”: blood transfusion, endoscopy, or surgery. This was confirmed in a 2009 [facility] [place] study where patients with a score of 0 were actually discharged and had no GI bleeding mortality at 6 month followup Score above 0: A GBS greater than zero suggests a “High Risk” GI bleed that is likely to require “medical intervention”: transfusion, endoscopy, or surgery. A higher GBS also correlated with a higher likelihood of needing intervention Scores >/= 6 are associated with >50% risk of needing intervention D/C Safety Score for LGIB Assessment Assessment Tool: Readmission and adverse event risk in patients with acute lower GI bleeding. Hemoglobin and Recent Vital Signs: Hgb 13.9 g/dL (12.0-15.0) 04/10/25 20:17 Pulse Rate 72 04/10/25 20:20 Blood Pressure 109/81 04/10/25 20:20 Score Interpretation: Probability Percentage of safe discharge (absence of rebleeding, blood transfusion, therapeutic intervention, 28 day readmission, or ) Score of 8 or below: Consider discharge, with appropriate precautions. Score of 9 or above: Discharge NOT recommended. Consider admission with further workup and resuscitation as necessary.
[2025-04-10 20:20] VITALS: BP 109/81; PULSE 72; RESP 18; O2SAT 99
[2025-04-10 20:27] LABS: Hematocrit 40.3 % (37-47); Hemoglobin 13.9 g/dL (12.0-15.0); Immature Granulocytes Count 0.010 X10^3/uL (0.0-0.0); Mean Corp Hgb Conc 34.5 g/dL (32-36); Mean Corpuscular Volume 93.5 fL (81-99); Mean Platelet Vol. 11.2 fl (6.2-12.0); NRBC Flagged by Analyzer 0 % (0-5); Platelet Count 191 K/mm3 (150-450); RBC Distribution Width CV 11.9 % (11.6-14.6); RBC Distribution Width SD 41.4 fl (35.1-43.9); Red Blood Count 4.31 M/mm3 (4.2-5.4); White Blood Count 7.2 K/mm3 (4.4-11.0)
[2025-04-10 20:54] LABS: Internal QC Validated? YES +Cl - CLEAR BKGD; Pregnancy, Serum, hCG Quali. NEGATIVE Negative
[2025-04-10 20:55] LABS: Record Kit Lot#, Serum Preg. 980607
[2025-04-10 21:07] LABS: AST(SGOT) 21 U/L (<=31); Alanine Aminotransfer ALT/SGPT 15 U/L (<=34); Albumin, Serum 4.0 g/dL (3.5-5.0); Alkaline Phosphatase 96 U/L (35-104); Anion Gap 10 (5-15); BUN 13 mg/dL (4-19); BUN/Creat Ratio 20.1 RATIO (10-20); Calcium,Total 9.2 mg/dL (7.6-11.0); Carbon Dioxide 23.7 mmol/L (21.0-32.0); Chloride 103 mmol/L (98-108); Estimated Creatinine Clearance 117.87 ml/min (50-250); Globulin 3.4 g/dL (2.2-4.2); Glucose 103 mg/dL (70-99); Lipase 30 U/L (13-75); Potassium 3.5 mmol/L (3.3-5.1)
--- OUTSIDE RECORDS SUMMARY | 2025-04-10 21:09 | XMS RPT_ITS | CCD ---
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 4.57 10*6/uL Normal 3.90-5.20 [facility] Comment on above: Order Comment: Speci men Type: BLOOD SPECIMEN Ordering Facility: [facility] Address: [address] [place] [address] Performed By: #### 5 7021-8 #### [facility] CLIA [id number] [address] [place] [address] [place] WBC (Bld) [#/Vol] 8.37 10*3/uL Normal 3.70-11.00 [facility] Comment on above: Order Comment: Speci men Type: BLOOD SPECIMEN Ordering Facility: [facility] Address: [address] [place] [address] Performed By: #### 5 7021-8 #### [facility] CLIA [id number] [address] [place] [address] [place] Comprehensive metabolic 2000 panelon 04-09-2025 Albumin [Mass/Vol] 4.3 g/dL Normal 3.9-4.9 [facility] Comment on above: Order Comment: Speci men Type: BLOOD SPECIMEN Ordering Facility: [facility] Address: [address] [place] [address] Performed By: #### 2 4323-8 #### [facility] CLIA [id number] [address] [place] [address] [place] ALP [Catalytic activity/Vol] 103 U/L Normal 34-[address] [facility] Comment on above: Order Comment: Speci men Type: BLOOD SPECIMEN Ordering Facility: [facility] Address: [address] [place] [address] Performed By: #### 2 4323-8 #### [id number] [address] [place] [address] [place] ALT [Catalytic activity/Vol] 11 U/L Normal 7-[address] [facility] Comment on above: Order Comment: Speci men Type: BLOOD SPECIMEN Ordering Facility: [facility] Address: [address] [place] [address] Performed By: #### 2 4323-8 #### [id number] [address] [place] [address] [place] Anion gap [Moles/Vol] 11 mmol/L Normal 8-[address] [facility] Comment on above: Order Comment: Speci men Type: BLOOD SPECIMEN Ordering Facility: [facility] Address: [address] [place] [id number] Performed By: #### 2 4323-8 #### [facility] CL[facility] [id number] [address] [place] [address] [place] AST [Catalytic activity/Vol] 16 U/L Normal 13-[address] [facility] Comment on above: Order Comment: Speci men Type: BLOOD SPECIMEN Ordering Facility: [facility] Address: [address] [place] [address] Performed By: #### 2 4323-8 #### [facility] CLIA [id number] [address] [place] [address] [place] Bilirubin [Mass/Vol] 0.3 mg/dL Normal 0.2-1.3 [facility] Comment on above: Order Comment: Speci men Type: BLOOD SPECIMEN Ordering Facility: [facility] Address: [address] [place] [address] Performed By: #### 2 4323-8 #### [facility] CLIA [id number] [address] [place] [address] [place] Calcium [Mass/Vol] 9.4 mg/dL Normal 8.5-10.2 [facility] Comment on above: Order Comment: Speci men Type: BLOOD SPECIMEN Ordering Facility: [facility] Address: [address] [place] [address] Performed By: #### 2 4323-8 #### [facility] CLIA [id number] [address] [place] [address] [place] Chloride [Moles/Vol] 102 mmol/L Normal 98-107 [facility] Comment on above: Order Comment: Speci men Type: BLOOD SPECIMEN Ordering Facility: [facility] Address: [address] [place] [address] Performed By: #### 2 4323-8 #### [facility] CLIA [id number] [address] [place] [address] [place] CO2 [Moles/Vol] 23 mmol/L Normal 22-[address] [facility] Comment on above: Order Comment: Speci men Type: BLOOD SPECIMEN Ordering Facility: [facility] Address: [address] [place] [address] Performed By: #### 2 4323-8 #### [facility] CLIA [id number] [address] [place] [address] [place] Creatinine [Mass/Vol] 0.62 mg/dL Normal 0.58-0.[address] [facility] Comment on above: Order Comment: Speci men Type: BLOOD SPECIMEN Ordering Facility: [facility] Address: [address] [place] [address] Performed By: #### 2 4323-8 #### [facility] [id number] [address] [place] [address] [place] eGFRcr SerPlBld CKD-EPI 2020 116 mL/min/1.73m??? Normal >=[address] [facility] Comment on above: Order Comment: Alvai men Type: BLOOD SPECIMEN Ordering Facility: [facility] Address: [address] [place] [address] Result Comment: Jyoti mated Glomerular Filtration Rate (eGFR) is calculated using the 2020 CKD-EPI creatinine equation. This equation utilizes serum creatinine, sex, and age as parameters. The creatinine assay has traceable calibration to isotope dilution-mass spectrometry. Refer to KDIGO guidelines for clinical interpretation. In patients with unstable renal function, e.g. those with acute kidney injury, the eGFR may not accurately reflect actual GFR. Performed By: #### 2 4323-8 #### [facility] CLIA [id number] [address] [place] [address] [place] Glucose [Mass/Vol] 90 mg/dL Normal 74-99 [facility] Comment on above: Order Comment: Alvai men Type: BLOOD SPECIMEN Ordering Facility: [facility] Address: [address] [place] [address] Result Comment: The [place] Diabetes Association (ADA) provides guidance for cutoff values for fasting glucose and random glucose. The ADA defines fasting as no caloric intake for at least 8 hours. Fasting plasma glucose results between 100 to 125 mg/dL indicate increased risk for diabetes (prediabetes). Fasting plasma glucose results greater than or equal to 126 mg/dL meet the criteria for diagnosis of diabetes. In the absence of unequivocal hyperglycemia, results should be confirmed by repeat testing. In a patient with classic symptoms of hyperglycemia or hyperglycemic crisis, random plasma glucose results greater than or equal to 200 mg/dL meet the criteria for diagnosis of diabetes. Reference: Standards of Medical Care in Diabetes 2016, [place] Diabetes Association. Diabetes Care. 2016.39(Suppl 1). Performed By: #### 2 4323-8 #### [facility] CLIA [id number] [address] [place] [address] [place] Potassium [Moles/Vol] 4.2 mmol/L Normal 3.7-5.[address] [facility] Comment on above: Order Comment: [place] magaña Type: BLOOD SPECIMEN Ordering Facility: [facility] Address: [address] [place] [address] Performed By: #### 2 4323-8 #### [facility] [id number] [address] [place] [address] [place] Protein [Mass/Vol] 8.0 g/dL Normal 6.3-8.0 [facility] Comment on above: Order Comment: [place] magaña Type: BLOOD SPECIMEN Ordering Facility: [facility] Address: [address] [place] [address] Performed By: #### 2 4323-8 #### [facility] CLIA [id number] [address] [place] [address] [place] Sodium [Moles/Vol] 136 mmol/L Normal 136-144 [facility] Comment on above: Order Comment: Alvai men Type: BLOOD SPECIMEN Ordering Facility: [facility] Address: [address] [place] [address] Performed By: #### 2 4323-8 #### [facility] CLIA [id number] [address] [place] [address] [place] Urea nitrogen [Mass/Vol] 12 mg/dL Normal 7-[address] [facility] Comment on above: Order Comment: Speci men Type: BLOOD SPECIMEN Ordering Facility: [facility] Address: [address] [place] [address] Performed By: #### 2 4323-8 #### [facility] CLIA [id number] [address] [place] [address] [place] Ferritin SerPl-ncon 2024 Ferritin [Mass/Vol] 92.4 ng/mL Normal 14.7-205.1 [facility] Comment on above: Order Comment: Speci men Type: BLOOD SPECIMEN Ordering Facility: [facility] Address: [address] [place] [address] Performed By: #### 2 276-4, LIPNF, 3016-3, 68165-7 #### [facility] CLIA [id number] [address] [place] [address] [place] Iron and Iron binding capaci ty panelon 04-09-2025 Iron [Mass/Vol] 52 ug/dL Normal 41-[address] [facility] Comment on above: Order Comment: Speci men Type: BLOOD SPECIMEN Ordering Facility: [facility] Address: [address] [place] [address] Performed By: #### 2 276-4, LIPNF, 3016-3, 72372-7 #### [facility] CLIA [id number] [address] [place] [address] [place] Iron binding capacity [Mass/Vol] 290 ug/dL Normal 232-[address] [facility] Comment on above: Order Comment: Speci men Type: BLOOD SPECIMEN Ordering Facility: [facility] Address: [address] [place] [address] Performed By: #### 2 276-4, LIPNF, 3016-3, 53662-9 #### [facility] CLIA [id number] [address] [place] [address] [place] Iron/TIBC [Molar ratio] 17.9 % Normal 15.0-57.[address] [facility] Comment on above: Order Comment: Speci men Type: BLOOD SPECIMEN Ordering Facility: [facility] Address: [address] [place] [address] Performed By: #### 2 276-4, LIPNF, 3016-3, 54054-2 #### [facility] CLIA [id number] [address] [place] [address] [place] LIPID PANEL, NONFASTINGon Cholesterol [Mass/Vol] 199 mg/dL Normal <[address] [facility] Comment on above: Order Comment: Speci men Type: BLOOD SPECIMEN Ordering Facility: [facility] Address: [address] [place] [address] Result Comment: <200 mg/dL, Desirable 200-239 mg/dL, Borderline high >239 mg/dL, High Performed By: #### 2 276-4, LIPNF, 3016-3, 20887-3 #### [facility] CLIA [id number] [address] [place] [address] [place] HDL CHOLESTEROL, NF 33 mg/dL Low >39 [facility] Comment on above: Order Comment: Alvai men Type: BLOOD SPECIMEN Ordering Facility: [facility] Address: [address] [place] [address] Result Comment: 40-5 9 mg/dL, Acceptable >59 mg/dL, High: Negative risk factor for coronary heart disease <40 mg/dL, Low: Positive risk factor for coronary heart disease Performed By: #### 2 276-4, LIPNF, 3016-3, 14924-2 #### [facility] CLIA [id number] [address] [place] [address] [place] LDL CHOLESTEROL CALCULATED, NF 148 mg/dL High <[address] [facility] Comment on above: Order Comment: Speci men Type: BLOOD SPECIMEN Ordering Facility: [facility] Address: [address] [place] [address] Result Comment: <100 mg/dL, Optimal 100-129 mg/dL, Near optimal/above optimal 130-159 mg/dL, Borderline high 160-189 mg/dL, High >189 mg/dL, Very high Secondary prevention optimal LDL Cholesterol levels are recommended to be <70 mg/dL LDL cholesterol is calculated using the Mejía-NIH equation. Performed By: #### 2 276-4, LIPNF, 6-3, 59500-5 #### [facility] CLIA [id number] [facility] [place] [facility] [place] [address] [place] LDL/HDL RATIO, NF 4.48 mg/dL High <2.54 [facility] Comment on above: Order Comment: Speci men Type: BLOOD SPECIMEN Ordering Facility: [facility] Address: [address] [place] [address] Result Comment: Gustavo lo: 1. National Cholesterol Education Program ATP III Guideline At-A-Glance Quick Desk Reference: National Heart, Lung, and Blood [place]. National Institutes of Health. 2001: NIH Publication No. 01-3305. 2. An International Atherosclerosis Society position paper: global recommendations for the management of dyslipidemia: executive summary, Atherosclerosis. 2014: 232(2):410-413. Performed By: #### 2 276-4, LIPNF, 3015-3, 75630-2 #### [facility] CLIA [id number] [address] [place] [address] [place] NON HDL CHOL, NF 166 mg/dL High <130 [facility] Comment on above: Order Comment: [place] magaña Type: BLOOD SPECIMEN Ordering Facility: [facility] Address: [address] [place] [address] Result Comment: <130 mg/dL, Optimal 130-159 mg/dL, Near optimal/above optimal 160-189 mg/dL, Borderline high 190-219 mg/dL, High >219 mg/dL, Very high Secondary prevention optimal non HDL Cholesterol levels are recommended to be <100 mg/dL Performed By: #### 2 276-4, LIPNF, 3015-3, 71540-3 #### [facility] CLIA [id number] [facility] [place] [facility] [place] [address] [place] T CHOL/HDL RATIO NF 6.03 mg/dL High <5.10 [facility] Comment on above: Order Comment: Speci men Type: BLOOD SPECIMEN Ordering Facility: [facility] Address: [address] [place] [address] Performed By: #### 2 276-4, LIPNF, 3016-3, 95745-0 #### [facility] CLIA [id number] [address] [place] [address] [place] TRIGLYCERIDES, NF 99 mg/dL Normal <150 [facility] Comment on above: Order Comment: Speci men Type: BLOOD SPECIMEN Ordering Facility: [facility] Address: [address] [place] [address] Result Comment: <150 mg/dL, Normal 150-199 mg/dL, Borderline high 200-499 mg/dL, High >499 mg/dL, Very high Performed By: #### 2 276-4, LIPNF, 3016-3, 10872-7 #### [facility] CLIA [id number] [address] [place] [address] [place] VLDL CHOLESTEROL, NF 18 mg/dL Normal <30 [facility] Comment on above: Order Comment: Speci men Type: BLOOD SPECIMEN Ordering Facility: [facility] Address: [address] [place] [address] Performed By: #### 2 276-4, LIPNF, 3016-3, 75475-1 #### [facility] CLIA [id number] [address] [place] [address] [place] TSH SerPl-aCncon 04-09-2025 TSH Qn 0.929 m[IU]/L Normal 0.270-4.[address] [facility] Comment on above: Order Comment: Speci men Type: BLOOD SPECIMEN Ordering Facility: [facility] Address: [address] [place] [address] Result Comment: If t he patient is , TSH reference range varies by gestational period: First Trimester (weeks 9-12): 0.180-2.990 mIU/L Second Trimester: 0.110-3.980 mIU/L Third Trimester: 0.480-4.710 mIU/L Andriy Crane et al. A Practical Approach for the Verifications and Determination of Site- and Trimester-Specific Reference Intervals for Thyroid Function tests in . Thyroid, 2019:29:3:412-420. Arvin Salgado, et al. 2017 Guidelines of the [place] Thyroid Association for the Diagnosis and Management of Thyroid Disease during and the . Thyroid, 2017:27:3:315-389. Performed By: #### 2 276-4, LIPNF, 3016-3, 54773-6 #### [facility] CLIA [id number] [address] [place] [address] OF [facility] CNOVon 04-08-2025 CNOV Office Visit (FAMPWS ) ----- DARIUS GARCIA ([id number]) 1985 F CHT Date Time Provider Department 04/08/25 6:20 PM ZOIE PARADA During your visit today, we recorded the following information about you: Pulse Respiration Blood pressure Weight 80/minute 16/minute 100/68 73.9 kg Zoie Parada APRN.CNP 04/08/2025 6:53 PM Addendum Get the labwork. Schedule the ultrasound. I put the referral in for gen surg (I would suggest waiting until after the ultrasound to schedule this). Zoie Parada APRN.CNP 04/08/2025 11:25 PM Signed This is a 39 year old female who presents today with: The patient is a 39-year-old female here for annual. HISTORY OF PRESENT ILLNESS: Darius Garcia is a 39-year-old female presenting for annual. Foot Pain: - Daily foot pain described as "walking on eggshells." - Calf tightness described as feeling like they are going to erupt. - Pain worsens throughout the day. - Previous recommendation for physical therapy not pursued due to time constraints. Noted to have low folate at that time. Endorses hx of anemia in . Ear Pain: - Left ear pain x2 days, worsening. Has been "snotty." Arm rash - Suspects work-related cause due to wearing arm guards and gloves. Bilateral wrists. + itch. Recent ER visit for abdominal pain. Ct showed epiploic appendagitis, gall stones, and liver lesions (suspect hemangiomas). Tubular adenoma. Due for colonoscopy. PAST MEDICAL HISTORY: PAST MEDICAL HISTORY Diagnosis Date Abnormal glandular Papanicolaou smear of cervix Abn. 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 Bilateral wrist. levonorgestrel (MIRENA) 20 mcg/24 hr (5 years) IUD 1 Each by INTRAUTERINE route as directed. put in in the OR No current facility-administered medications for this visit. FAMILY HISTORY Problem Relation Age of Onset Asthma Mother COPD Mother Lung Cancer Mother No Known Problems Brother No Known Problems Brother No Known Problems Brother Heart Maternal Grandmother Colon Cancer Maternal Grandfather No Known Problems Paternal Grandmother No Known Problems Daughter No Known Problems Daughter No Known Problems Son No Known Problems Son No Known Problems Son SOCIAL HISTORY[1] REVIEW OF SYSTEMS Constitutional: (-) unintentional weight loss, (-) weakness, (-) fatigue Head: (-) headaches Eyes: (-) vision change Ears/Nose/Mouth/Throat: (+) left ear pain, (-) hearing change Neck: (-) neck masses Cardiovascular: (+) palpitations Respiratory: (-) dyspnea Gastrointestinal: (+) constipation, (-) heartburn, (-) blood in stool Genitourinary: (+) urinary frequency Musculoskeletal: (+) foot pain, (+) calf tightness, (+) rib pain, (+) thigh pain, (+) back pain Skin: (+) rash, (+) pruritus, (+) subcutaneous nodules Neurological: (+) tremors Psychiatric: (+) anxiety EXAM: BP 100/68 Pulse 80 Resp 16 Wt 73.9 kg (163 lb) LMP 01/27/2017 (Approximate) SpO2 99% BMI 24.78 kg/m? PHYSICAL EXAM: General Appearance: Well appearing, alert, in no acute distress, well-hydrated, well nourished.. Skin: Skin color, texture, turgor normal, no suspicious rashes or lesions. Head: Normocephalic, no masses, lesions, tenderness or abnormalities. Eyes: Anicteric sclera. Pupils are equally round and reactive to light. Extraocular movements are intact. . Ears: External ears normal, canals clear. Normal TMs bilaterally. Oropharynx: Lips, mucosa, and tongue normal, teeth and gums normal, oropharynx normal. Neck: Supple, no adenopathy; thyroid symmetric, normal size, no bruits. Lungs: Lungs clear to auscultation. No wheezing, rhonchi, rales.. Heart: RRR without murmur, gallop, or rubs. No ectopy. Abdomen: Abdomen soft. Mild tenderness across the lower abdomen. Bowel sounds normal. No masses, organomegaly. Extremities: No deformities, edema, skin discoloration, clubbing or cyanosis. Good capillary refill. . Neurologic: Gait normal. ASSESSMENT/PLAN 1. Wellness examination (Z00.00) - Patient has not been seen in several years. - Ordered CBC, CMP, cholesterol panel, folate, iron, and ferritin. - Offered flu, COVID, and pneumonia vaccines; patient declined flu and COVID vaccines, but agreed to pneumonia vaccine. (more content not included)... [facility] DARIUS GARCIA ([id number]) 1985 F T Date Time Provider Department 03/25/25 DEREK MCDUFFIE During your visit today, we recorded the following information about you: Jadiel Tate 03/25/2025 2:16 PM Signed Patient is requesting order for colonoscopy. Patient would like to be scheduled at [place]. Please advise, thank you! Verena Boogie LPN 03/25/2025 4:51 PM Signed Patient has not been seen in dept since 07/01/22. Are we even able to order this? Derek Mcduffie MD 03/25/2025 4:53 PM Signed Needs check up to order that. 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 - TRINTELLIX 10 mg tablet Take 10 mg by mouth once daily. - levonorgestrel (MIRENA) 20 mcg/24 hr (5 years) IUD 1 Each by INTRAUTERINE route as directed. put in in the OR Meds Comments as of 12/24/2009: All medications reviewed today/December 24, 2009 Fidelina Peter Rn Problem List As Of Date 03/25/2025 Noted Resolved SUPERVIS OTHER NORMAL PREG [Z34.80] 08/31/2005 04/11/2006 IRREGULAR MENSTRUATION [N92.6] 10/06/2005 04/11/2006 Supervision of other high-risk (V23.89*01/22/20 10 12/19/2013 Threatened premature labor, antepartum [O47.00] 01/21/2010 12/19/2013 UTI (lower urinary tract infection) [N39.0] 12/19/2013 08/30/2016 Bipolar I disorder, most recent episode (or cur*08/30/2016 Encounter Status:Closed by TAYLER MILLER on 04/01/[address] [facility] .Auto Diffon 03-10-2025 Basophil, Absolute 0.1 10 3/mcL Normal 0.0-0.3 [facility] Comment on above: Performed By: #### A ASHKAN, LIP, CBC, CMP, GFR, MDW, ADIFF #### [address] [id number] Basophils/100 WBC (Bld) 0.8 % Normal 0.0-2.5 [facility] Comment on above: Performed By: #### A ASHKAN, LIP, CBC, CMP, GFR, MDW, ADIFF #### [address] [address] Eosinophil, Absolute 0.2 10 3/mcL Normal 0.0-0.7 [facility] Comment on above: Performed By: #### A ASHKAN, LIP, CBC, CMP, GFR, MDW, ADIFF #### [address] [address] Eosinophils/100 WBC (Bld) 1.8 % Normal 0.0-6.0 [facility] Comment on above: Performed By: #### A ASHKAN, LIP, CBC, CMP, GFR, MDW, ADIFF #### [address] [address] Lymphocyte, Absolute 2.8 10 3/mcL Normal 0.9-4.3 [facility] Comment on above: Performed By: #### A ASHKAN, LIP, CBC, CMP, GFR, MDW, ADIFF #### [address] [address] Lymphocytes/100 WBC (Bld) 33.5 % Normal 20.0-40.0 [facility] Comment on above: Performed By: #### A ASHKAN, LIP, CBC, CMP, GFR, MDW, ADIFF #### [address] [address] Monocyte, Absolute 0.6 10 3/mcL Normal 0.1-1.4 [facility] Comment on above: Performed By: #### A ASHKAN, LIP, CBC, CMP, GFR, MDW, ADIFF #### [address] [address] Monocytes/100 WBC (Bld) 6.9 % Normal 2.0-13.0 [facility] Comment on above: Performed By: #### A ASHKAN, LIP, CBC, CMP, GFR, MDW, ADIFF #### [address] [address] Neutrophils/100 WBC (Bld) 57.0 % Normal 50.0-75.0 [facility] Comment on above: Performed By: #### A ASHKAN, LIP, CBC, CMP, GFR, MDW, ADIFF #### [address] [address] .GFRon 03-10-2025 Estimated Glomerular Filtration Rate 91 ml/min/1.73sqm Normal [facility] Comment on above: Result Comment: Stages of Chronic Kidney Disease (CKD) Stage Description eGFR(ml/min/1.73 sq.m.) CKD 1 Normal kidney function or >=90 normal kindney function with possible kidney damage (ex. Proteinuria) CKD 2 Kidney damage with mild loss 60-89 of kidney function CKD 3a Mild to moderate loss of kidney 45-59 function CKD 3b Moderate to severe loss of 30-44 of kindey function CKD 4 Severe loss of kidney function 15-29 CKD 5 Kidney failure <15 Note: (go live 2024) the eGFR calculation was updated to the 2020 CKD-EPI creatinine equation without a race factor to calculate the eGFR results. Performed By: #### A ASHKAN, LIP, CBC, CMP, GFR, MDW, ADIFF #### [id number] [place], [place] [address] .MDWon 03-10-2025 Monocyte Distribution Width 21.71 High 0.00-20.00 [facility] Comment on above: Result Comment: For adults in ED, MDW>20.0 may be associated with a higher risk of sepsis during the first 12hrs of hospital admission Performed By: #### A ASHKAN, LIP, CBC, CMP, GFR, MDW, ADIFF #### [place] [address] .NEUABSon 03-10-2025 Neutrophil, Absolute 4.8 10 3/mcL Normal 2.3-8.1 [facility] Comment on above: Performed By: #### A ASHKAN, LIP, CBC, CMP, GFR, MDW, ADIFF #### [place] [address] CBCon 03-10-2025 Erythrocyte distribution width (RBC) [Ratio] 13.1 % Normal 11.5-15.5 [facility] Comment on above: Performed By: #### A ASHKAN, LIP, CBC, CMP, GFR, MDW, ADIFF #### [place] [address] Hematocrit (Bld) [Volume fraction] 39.4 % Normal 34.0-46.0 [facility] Comment on above: Performed By: #### A ASHKAN, LIP, CBC, CMP, GFR, MDW, ADIFF #### [place] [address] Hgb 14.1 G/dL Normal 12.0-16.0 [facility] Comment on above: Performed By: #### A ASHKAN, LIP, CBC, CMP, GFR, MDW, ADIFF #### [place] [address] MCH (RBC) [Entitic mass] 33.0 pg Normal 27.0-33.0 [facility] Comment on above: Performed By: #### A ASHKAN, LIP, CBC, CMP, GFR, MDW, ADIFF #### [place] [address] MCHC 35.8 G/dL Normal 32.0-36.0 [facility] Comment on above: Performed By: #### A ASHKAN, LIP, CBC, CMP, GFR, MDW, ADIFF #### [place] [address] MCV (RBC) [Entitic vol] 92.1 fL Normal 80.0-99.0 [facility] Comment on above: Performed By: #### A ASHKAN, LIP, CBC, CMP, GFR, MDW, ADIFF #### [address] [address] Platelet 188 10 3/mcL Normal 150-450 [facility] Comment on above: Performed By: #### A ASHKAN, LIP, CBC, CMP, GFR, MDW, ADIFF #### [address] [address] Platelet mean volume (Bld) [Entitic vol] 9.1 fL Normal 6.6-10.5 [facility] Comment on above: Performed By: #### A ASHKAN, LIP, CBC, CMP, GFR, MDW, ADIFF #### [address] [address] RBC 4.28 10 6/mcL Normal 4.10-5.30 [facility] Comment on above: Performed By: #### A ASHKAN, LIP, CBC, CMP, GFR, MDW, ADIFF #### [address] [address] WBC 8.4 10 3/mcL Normal 4.5-10.8 [facility] Comment on above: Performed By: #### A ASHKAN, LIP, CBC, CMP, GFR, MDW, ADIFF #### [address] [address] CMPon 03-10-2025 Albumin Level 3.5 G/dL Normal 3.5-5.0 [facility] Comment on above: Performed By: #### A ASHKAN, LIP, CBC, CMP, GFR, MDW, ADIFF #### [address] [address] Albumin/Globulin [Mass ratio] 0.8 {ratio} Low 1.1-2.5 [facility] Comment on above: Performed By: #### A ASHKAN, LIP, CBC, CMP, GFR, MDW, ADIFF #### [address] [address] ALP [Catalytic activity/Vol] 108 U/L Normal 40-135 [facility] Comment on above: Performed By: #### A ASHKAN, LIP, CBC, CMP, GFR, MDW, ADIFF #### [address] [address] ALT [Catalytic activity/Vol] 15 U/L Normal 14-59 [facility] Comment on above: Performed By: #### A ASHKAN, LIP, CBC, CMP, GFR, MDW, ADIFF #### [address] [address] AST [Catalytic activity/Vol] 16 U/L Normal 10-40 [facility] Comment on above: Performed By: #### A ASHKAN, LIP, CBC, CMP, GFR, MDW, ADIFF #### [address] [address] Bili Total 0.2 mg/dL Normal 0.2-1.0 [facility] Comment on above: Result Comment: Use of this assay is not recommended for patients undergoing treatment with eltrombopag due to the potential for falsely elevated results. Performed By: #### A ASHKAN, LIP, CBC, CMP, GFR, MDW, ADIFF #### [address] [address] BUN/Creatinine Ratio 12 ratio Normal 7-27 [facility] Comment on above: Performed By: #### A ASHKAN, LIP, CBC, CMP, GFR, MDW, ADIFF #### [address] [address] Calcium [Mass/Vol] 8.5 mg/dL Normal 8.4-10.2 [facility] Comment on above: Performed By: #### A ASHKAN, LIP, CBC, CMP, GFR, MDW, ADIFF #### [address] [address] Chloride [Moles/Vol] 102 mmol/L Normal 98-107 [facility] Comment on above: Performed By: #### A ASHKAN, LIP, CBC, CMP, GFR, MDW, ADIFF #### [address] [address] CO2 [Moles/Vol] 29 mmol/L Normal 22-29 [facility] Comment on above: Performed By: #### A ASHKAN, LIP, CBC, CMP, GFR, MDW, ADIFF #### [address] [address] Creatinine [Mass/Vol] 0.83 mg/dL Normal 0.51-0.95 [facility] Comment on above: Performed By: #### A ASHKAN, LIP, CBC, CMP, GFR, MDW, ADIFF #### [place] [address] Electrolyte Balance 5.0 mEq/L Normal 4.0-15.0 [facility] Comment on above: Performed By: #### A ASHKAN, LIP, CBC, CMP, GFR, MDW, ADIFF #### [place] [address] Globulin 4.5 G/dL High 2.7-4.4 [facility] Comment on above: Performed By: #### A ASHKAN, LIP, CBC, CMP, GFR, MDW, ADIFF #### [place] [address] Glucose [Mass/Vol] 101 mg/dL Normal 70-105 [facility] Comment on above: Performed By: #### A ASHKAN, LIP, CBC, CMP, GFR, MDW, ADIFF #### [address] [address] Potassium [Moles/Vol] 3.2 mmol/L Low 3.5-5.1 [facility] Comment on above: Performed By: #### A ASHKAN, LIP, CBC, CMP, GFR, MDW, ADIFF #### [address] [address] Sodium [Moles/Vol] 136 mmol/L Normal 136-145 [facility] Comment on above: Performed By: #### A ASHKAN, LIP, CBC, CMP, GFR, MDW, ADIFF #### [facility] [address] [place], [place] [address] Total Protein 8.0 G/dL Normal 6.4-8.2 [facility] Comment on above: Performed By: #### A ASHKAN, LIP, CBC, CMP, GFR, MDW, ADIFF #### [facility] [address] [place], [place] [address] Urea nitrogen [Mass/Vol] 10 mg/dL Normal 7-18 [facility] Comment on above: Performed By: #### A ASHKAN, LIP, CBC, CMP, GFR, MDW, ADIFF #### [id number] [place], [place] [address] CT ABD/PELVIS W/ IV CONTRAST ONLYon 03-10-2025 CT ABD/PELVIS W/ IV CONTRAST ONLY ORIGINAL EXAMINATION: CT OF THE ABDOMEN AND PELVIS WITH CONTRAST 03/10/2025 9:48 pm TECHNIQUE: CT of the abdomen and pelvis was performed with the administration of intravenous contrast. Multiplanar reformatted images are provided for review. Automated exposure control, iterative reconstruction, and/or weight based adjustment of the mA/kV was utilized to reduce the radiation dose to as low as reasonably achievable. COMPARISON: CT abdomen pelvis 09/16/2017 HISTORY: ORDERING SYSTEM PROVIDED HISTORY: Reason for Exam: Abdominal pain, acute, nonlocalized FINDINGS: Lower Chest: Unremarkable Organs: Hypodense lesions in right hepatic lobe measuring 0.9 cm (301:24) and 1.9 x 2.5 cm (301:17), larger lesion demonstrating peripheral hyperdensity, likely hemangiomas. Spleen, bilateral adrenal glands, pancreas unremarkable. Suspected gallbladder calculi. No evidence of nephrolithiasis or bilateral hydronephrosis. GI/Bowel: No evidence of bowel obstruction. Collapsed appearance of sigmoid colon mild circumferential wall thickening and surrounding stranding is suspected. Noninflamed appendix. Focal fat stranding with central sparing inferior to mid transverse colon (601:20), suspicious for epiploic appendagitis. Pelvis: Urine bladder is unremarkable. Pelvic structures are grossly unremarkable. Intrauterine device. Bilateral tubal closure devices. Peritoneum/Retroperitoneu m: No evidence of lymphadenopathy. Atherosclerotic aorta without aneurysm. Bones/Soft Tissues: Mild degenerative changes of the spine. IMPRESSION: 1. Findings suspicious for epiploic appendagitis at mid transverse colon. 2. Mild circumferential wall thickening may relate to mild infectious/inflammatory colitis or under distended sigmoid colon. 3. Hepatic lesions, possibly hemangiomas in the absence of known malignancy, correlate with prior exams if any available. 4. Suspect cholelithiasis. I have personally reviewed the images of this examination and agree with the resident's findings and interpretation. Interpreted by: Kanika Monroy Preliminary Report By: Eben Hoffman Electronically signed By Kanika Monroy Dictated Date: 03/10/2025 9:53:25 PM Prelim Date: 03/10/2025 10:03:42 PM Sign Date: 03/10/2025 10:48:32 PM Ordering Provider: MARIBEL MURPHY [address] Normal [facility] LABORATORYOrdered By: SYSTEM SYSTEM on 03-10-2025 Albumin BCP dye [Mass/Vol] 3.5 G/dL Normal 3.5 - 5.0 G/dL AO ADM SS Albumin/Globulin [Mass ratio] 0.8 {ratio} Low 1.1 - 2.5 ratio AO ADM SS ALP [Catalytic activity/Vol] 108 U/L Normal 40 - 135 U/L AO ADM SS ALT With P-5'-P [Catalytic activity/Vol] 15 U/L Normal 14 - 59 U/L AO ADM SS AST With P-5'-P [Catalytic activity/Vol] 16 U/L Normal 10 - 40 U/L AO ADM SS Basophils (Bld) [#/Vol] 0.1 103/mcL Normal 0.0 - 0.3 10^3/mcL AO Workflow SS Basophils/100 WBC (Bld) 0.8 % Normal 0.0 - 2.5 % AO Workflow SS Bilirubin [Mass/Vol] 0.2 mg/dL Normal 0.2 - 1 .0 mg/dL AO ADM SS Comment on above: Interpretive Data: U se of this assay is not recommended for patients undergoing treatment with eltrombopag due to the potential for falsely elevated results. Calcium [Mass/Vol] 8.5 mg/dL Normal 8.4 - 10. 2 mg/dL AO ADM SS Chloride [Moles/Vol] 102 mmol/L Normal 98 - 10 7 mmol/L AO ADM SS CO2 [Moles/Vol] 29 mmol/L Normal 22 - 29 mmol/L AO ADM SS Creatinine [Mass/Vol] 0.83 mg/dL Normal 0.51 - 0.95 mg/dL AO ADM SS Electrolyte Balance 5.0 mEq/L Normal 4.0 - 15 .0 mEq/L AO ADM SS Eosinophil, Absolute 0.2 103/mcL Normal 0.0 - 0 .7 10^3/mcL AO Workflow SS Eosinophils/100 WBC (Bld) 1.8 % Normal 0.0 - 6.0 % AO Workflow SS Erythrocyte distribution width (RBC) [Ratio] 13.1 % Normal 11.5 - 15.5 % AO Workflow SS Globulin 4.5 G/dL High 2.7 - 4.4 G/dL AO ADM SS GLOMERULAR FILTRATION RATE/1.73 SQ M.PREDICTED:ARVRAT:P T:SER/PLAS/BLD:QN:CR EATININE-BASED FORMULA (CKD-EPI 2020) 91 ml/min/1.73sqm Invalid Interpretation Code AO Chemistry S Comment on above: Interpretive Data: Stages of Chronic Kidney Disease (CKD) Stage Description eGFR(ml/min/1.73 sq.m.) CKD 1 Normal kidney function or >=90 normal kindney function with possible kidney damage (ex. Proteinuria) CKD 2 Kidney damage with mild loss 60-89 of kidney function CKD 3a Mild to moderate loss of kidney 45-59 function CKD 3b Moderate to severe loss of 30-44 of kindey function CKD 4 Severe loss of kidney function 15-29 CKD 5 Kidney failure <15 Note: (go live 2024) the eGFR calculation was updated to the 2020 CKD-EPI creatinine equation without a race factor to calculate the eGFR results. Glucose [Mass/Vol] 101 mg/dL Normal 70 - 105 mg/dL AO ADM SS Hematocrit (Bld) [Volume fraction] 39.4 % Normal 34.0 - 46.0 % AO Workflow SS Hemoglobin (Bld) [Mass/Vol] 14.1 G/dL Normal 12.0 - 16.0 G/dL AO Workflow SS Lipase [Catalytic activity/Vol] 41 U/L Normal 16 - 77 U/L AO ADM SS Lymphocytes (Bld) [#/Vol] 2.8 103/mcL Normal 0.9 - 4.3 10^3/mcL AO Workflow SS Lymphocytes/100 WBC (Bld) 33.5 % Normal 20.0 - 40.0 % AO Workflow SS MCH (RBC) [Entitic mass] 33.0 pg Normal 27.0 - 33.0 pg AO Workflow SS MCHC 35.8 G/dL Normal 32.0 - 36.0 G/dL AO Workflow SS MCV (RBC) [Entitic vol] 92.1 fL Normal 80.0 - 99.0 fL AO Workflow SS Monocyte distribution width Auto (Bld) [Entitic vol] 21.71 1 High 0.00 - 20.00 AO Workflow SS Comment on above: Result Comment: For adults in ED, MDW>20.0 may be associated with a higher risk of sepsis during the first 12hrs of hospital admission Monocytes (Bld) [#/Vol] 0.6 103/mcL Normal 0.1 - 1.4 10^3/mcL AO Workflow SS Monocytes/100 WBC (Bld) 6.9 % Normal 2.0 - 13.0 % AO Workflow SS Neutrophils (Bld) [#/Vol] 4.8 103/mcL Normal 2.3 - 8.1 10^3/mcL AO Workflow SS Neutrophils/100 WBC (Bld) 57.0 % Normal 50.0 - 75.0 % AO Workflow SS Platelet mean volume (Bld) [Entitic vol] 9.1 fL Normal 6.6 - 10.5 fL AO Workflow SS Platelets (Bld) [#/Vol] 188 103/mcL Normal 150 - 450 10^3/mcL AO Workflow SS Potassium [Moles/Vol] 3.2 mmol/L Low 3.5 - 5.1 mmol/L AO ADM SS Protein [Mass/Vol] 8.0 G/dL Normal 6.4 - 8.2 G/dL AO ADM SS RBC (Bld) [#/Vol] 4.28 106/mcL Normal 4.10 - 5.3 0 10^6/mcL AO Workflow SS Sodium [Moles/Vol] 136 mmol/L Normal 136 - 145 mmol/L AO ADM SS Urea nitrogen [Mass/Vol] 10 mg/dL Normal 7 - 18 mg/dL AO ADM SS Urea nitrogen/Creatinine [Mass ratio] 12 ratio Normal 7 - 27 ratio AO ADM SS WBC (Bld) [#/Vol] 8.4 103/mcL Normal 4.5 - 10.8 10^3/mcL AO Workflow SS LABORATORYOrdered By: Shaniqua Bejarano on 03-10-2025 Color (U) Yellow (03/10/25 9:04 PM) Normal Yellow AO Auto Urine SS Glucose (U) [Mass/Vol] Negative Normal Negative AO Auto Urine SS HCG ( test) Ql Negative (03/10/25 9:04 PM) Normal AO Manual Urine SS Ketones Ql (U) Negative Normal Negative AO Auto Urine SS test (u) int Not detected Invalid Interpretation Code AO Manual Urine SS UA Appear Clear (03/10/25 9:04 PM) Normal Clear AO Auto Urine SS UA Bili Negative (03/10/25 9:04 PM) Normal Negative AO Auto Urine SS UA Blood Negative (03/10/25 9:04 PM) Normal Negative AO Auto Urine SS UA Leuk Est Negative (03/10/25 9:04 PM) Normal Negative AO Auto Urine SS UA Nitrite Negative (03/10/25 9:04 PM) Normal Negative AO Auto Urine SS UA pH 7.5 (03/10/25 9:04 PM) Normal 5.0 - 8.0 AO Auto Urine SS UA Protein Negative Normal Negative AO Auto Urine SS UA Spec Grav 1.010 *ABN* (03/10/25 9:04 PM) Invalid Interpretation Code 1.015-1.025 AO Auto Urine SS UA Specimen Type Clean Catch (03/10/25 9:04 PM) Normal AO Auto Urine SS UA Urobilinogen 0.2 E.U./dL Normal 0.2-1.0 AO Auto Urine SS LIPon 03-10-2025 Lipase Level 41 U/L Normal 16-77 [facility] Comment on above: Performed By: #### A ASHKAN, LIP, CBC, CMP, GFR, MDW, ADIFF #### [address] [address] PREGUon 03-10-2025 HCG ( test) Ql (U) Negative Normal [facility] Comment on above: Performed By: #### P REGU, UA #### [address] [address] test (u) int Not detected Invalid Interpretation Code [facility] Comment on above: Performed By: #### P REGU, UA #### [address] [address] UAon 03-10-2025 Color (U) Yellow Normal Yellow [facility] Comment on above: Performed By: #### P REGU, UA #### [address] [address] Glucose (U) [Mass/Vol] Negative Normal Negative [facility] Comment on above: Performed By: #### P REGU, UA #### [place] [address] Ketones Ql (U) Negative Normal Negative [facility] Comment on above: Performed By: #### P REGU, UA #### [place] [address] UA Appear Clear Normal Clear [facility] Comment on above: Performed By: #### P REGU, UA #### [place] [address] UA Blood Negative Normal Negative [facility] Comment on above: Performed By: #### P REGU, UA #### [place] [address] UA Leuk Est Negative Normal Negative [facility] Comment on above: Performed By: #### P REGU, UA #### [place] [address] UA Nitrite Negative Normal Negative [facility] Comment on above: Performed By: #### P REGU, UA #### [place] [address] UA pH 7.5 Normal 5.0 - 8.0 [facility] Comment on above: Performed By: #### P REGU, UA #### [place] [address] UA Protein Negative Normal Negative [facility] Comment on above: Performed By: #### P REGU, UA #### [place] [id number] UA Spec Grav 1.010 Abnormal 1.015-1.025 [facility] Comment on above: Performed By: #### P REGU, UA #### [facility] [address] [place], [place] [address] UA Specimen Type Clean Catch Normal [facility] Comment on above: Performed By: #### P REGU, UA #### [facility] [address] [place], [place] [address] UA Urobilinogen 0.2 E.U./dL Normal 0.2-1.0 [facility] Comment on above: Performed By: #### P REGU, UA #### [facility] [address] [place], [place] [address] Urobilinogen (U) [Mass/Vol] Negative Normal Negative [facility] Comment on above: Performed By: #### P REGU, UA #### [id number] [place], [place] [address] CNOVon 02-08-2025 CNOV Office Visit ([facility]) ----- RADHADARIUS Daryl ([id number]) 1985 F T Date Time Provider Department 02/08/25 6:15 PM RONY FORD During your visit today, we recorded the following information about you: Temperature Pulse Respiration Blood pressure 98.9 degrees 78/minute 22/minute 92/67 Weight 74 kg Rony Ford APRN.LICENSED VETERINARY TECHNICIAN 02/08/2025 7:06 PM Signed [facility] Subjective Carolynjeremy Garcia is a 39 year old female. Patient presents with: Cough: Chest congestion,tightness, pressure, rib pain on bilat side, nasal congestion runny nose x 1 week HPI Patient presents today complaining of 1 week of cough, congestion, rib pain, and runny nose. She denies any recent fevers. Denies any specific known sick exposures. Review of Systems As above Objective BP 92/67 Pulse 78 Temp 37.2 ?C (98.9 ?F) Resp 22 Wt 74 kg (163 lb 2.3 oz) LMP 01/27/2017 (Approximate) SpO2 98% BMI 24.81 kg/m? Physical Exam Vitals and nursing note reviewed. Constitutional: General: She is not in acute distress. Appearance: Normal appearance. She is not ill-appearing. HENT: Head: Normocephalic. Mouth/Throat: Mouth: Mucous membranes are moist. Eyes: Conjunctiva/sclera: Conjunctivae normal. Cardiovascular: Rate and Rhythm: Normal rate and regular rhythm. Pulmonary: Effort: Pulmonary effort is normal. Breath sounds: Normal breath sounds. Comments: Dry cough noted Musculoskeletal: General: Normal range of motion. Cervical back: Normal range of motion. Skin: General: Skin is warm and dry. Neurological: General: No focal deficit present. Mental Status: She is alert. Psychiatric: Mood and Affect: Mood normal. Behavior: Behavior normal. {ASSESSMENT/PLAN: 1. Acute cough - ICD9: 786.2, ICD10: R05.1 -Chest x-ray today showed no acute abnormality. Discussed with patient that symptoms are most likely viral in origin and she may have an ongoing cough for the next 5-10 days. She was given a prescription for Tessalon Perles for symptomatic relief as noted below. As symptoms are viral no antibiotics were prescribed. - XR CHEST 2V FRONTAL/LAT - BENZONATATE 100 MG CAPSULE Rony Ford APRN.LICENSED VETERINARY TECHNICIAN Disposition The patient was discharged. Procedures Allergies As of Date: 02/08/2025 Noted Allergy Reaction SLOW FE (FERROUS SULFATE DRIED) 03/19/2005 2 - Rash Date Reviewed: 02/08/2025 Reviewed by: Rony Ford APRN.LICENSED VETERINARY TECHNICIAN - Fully Assessed Reason for Visit: Cough [28] Cmt: Chest congestion,tightness, pressure, rib pain on bilat side, nasal congestion runny nose x 1 week Primary Visit Diagnosis:Acute cough [R05.1] Order(s):XR CHEST 2V FRONTAL/LAT [[id number]] Order #: [id number] FUTURE benzonatate (TESSALON PERLE) 100 mg capsuleTake 1 capsule by mouth three times a day as needed for cough for up to 12 doses.Disp: 12 capsuleRfl: 0 Prescriptions as of 02/08/2025 - benzonatate (TESSALON PERLE) 100 mg capsule Take 1 capsule by mouth three times a day as needed for cough for up to 12 doses. - TRINTELLIX 10 mg tablet Take 10 mg by mouth once daily. - levonorgestrel (MIRENA) 20 mcg/24 hr (5 years) IUD 1 Each by INTRAUTERINE route as directed. put in in the OR Meds Comments as of 12/24/2009: All medications reviewed today/December 24, 2009 Fidelina Peter Rn Problem List As Of Date 02/08/2025 Noted Resolved SUPERVIS OTHER NORMAL PREG [Z34.80] 08/31/2005 04/11/2006 IRREGULAR MENSTRUATION [N92.6] 10/06/2005 04/11/2006 Supervision of other high-risk (V23.89*01/22/20 10 12/19/2013 Threatened premature labor, antepartum [O47.00] 01/21/2010 12/19/2013 UTI (lower urinary tract infection) [N39.0] 12/19/2013 08/30/2016 Bipolar I disorder, most recent episode (or cur*08/30/2016 Prescriptions ordered this encounter Disp Refills Start End BENZONATATE 100 MG CAPSULE 12 c* 0 02/08/2025 Route: PO Sig: Take 1 capsule by mouth three times a day as needed for cough for up to 12 doses. Encounter Status:Closed by RONY FORD on 02/08/[address] [facility] XR CHEST 2V FRONTAL/LATon XR CHEST 2V FRONTAL/LAT * * *Final Report* * * DATE OF EXAM: Feb 08 2025 6:45PM WOX [id number] - XR CHEST 2V FRONTAL/LAT / PROCEDURE REASON: Acute cough * * * * Physician Interpretation * * * * EXAMINATION: CHEST RADIOGRAPH (2 VIEW FRONTAL and LATERAL) CLINICAL HISTORY: Acute cough MQ: XC2_6 EXAM DATE/TIME: 02/08/2025 6:45 PM COMPARISON: Chest x-ray on 06/17/2014 RESULT: Lines, tubes, and devices: None. Lungs and pleura: Biapical scarring and mild subpleural opacities, likely post inflammatory. No consolidation. No lung mass. No pleural effusion. No pneumothorax. Cardiomediastinal silhouette: Normal cardiomediastinal silhouette. Bones and soft tissues: Unremarkable. IMPRESSION: No acute radiographic abnormality. Cutting Inspector: CARL Transcribe Date/Time: Feb 08 2025 6:57P Dictated by : JUMANA GIBSON MD This examination was interpreted and the report reviewed and electronically signed by: JUMANA GIBSON MD on Feb 08 2025 6:58PM EST [id number] Normal [facility] XR Chest PA and Lateralon IMPRESSION: No acute radiographic abnormality. Cutting Inspector: [facility] Transcribe Date/Time: Feb 08 2025 6:57P Dictated by : JUMANA GIBSON MD This examination was interpreted and the report reviewed and electronically signed by: JUMANA GIBSON MD on Feb 08 2025 6:58PM EST DIVISION OF RADIOLOGY * * *Final Report* * * DATE OF EXAM: Feb 08 2025 6:45PM WOX 5291 - XR CHEST 2V FRONTAL/LAT / PROCEDURE REASON: Acute cough * * * * Physician Interpretation * * * * EXAMINATION: CHEST RADIOGRAPH (2 VIEW FRONTAL & LATERAL) CLINICAL HISTORY: Acute cough MQ: XC2_6 EXAM DATE/TIME: 02/08/2025 6:45 PM COMPARISON: Chest x-ray on 06/17/2014 RESULT: Lines, tubes, and devices: None. Lungs and pleura: Biapical scarring and mild subpleural opacities, likely post inflammatory. No consolidation. No lung mass. No pleural effusion. No pneumothorax. Cardiomediastinal silhouette: Normal cardiomediastinal silhouette. Bones and soft tissues: Unremarkable. DIVISION OF RADIOLOGY Provider, [facility] - 02/08/2025 * * *Final Report* * * DATE OF EXAM: Feb 08 2025 6:45PM WOX 5291 - XR CHEST 2V FRONTAL/LAT / PROCEDURE REASON: Acute cough * * * * Physician Interpretation * * * * EXAMINATION: CHEST RADIOGRAPH (2 VIEW FRONTAL & LATERAL) CLINICAL HISTORY: Acute cough MQ: [id number] EXAM DATE/TIME: 02/08/2025 6:45 PM COMPARISON: Chest x-ray on 06/17/2014 RESULT: Lines, tubes, and devices: None. Lungs and pleura: Biapical scarring and mild subpleural opacities, likely post inflammatory. No consolidation. No lung mass. No pleural effusion. No pneumothorax. Cardiomediastinal silhouette: Normal cardiomediastinal silhouette. Bones and soft tissues: Unremarkable. IMPRESSION IMPRESSION: No acute radiographic abnormality. Cutting Inspector: PSCB Transcribe Date/Time: Feb 08 2025 6:57P Dictated by : JUMANA GIBSON MD This examination was interpreted and the report reviewed and electronically signed by: JUMANA GIBSON MD on Feb 08 2025 6:58PM EST [facility] Radiology Study observation (narrative) [facility] XR Chest PA and LateralOrder ed By: [facility] Provider on 02-08-2025 [facility] URINE CULTURE [CCL]on 2024 Bacteria identified Cx Nom (U) URCUL See Results Below See Below CULTURE, URINE NORMAL UROGENITAL MELISSA <10,000 CFU/ml Normal urogenital melissa SOURCE: Urine (Nonspecific) [facility] [address] [place] [address] Basim Bowie III, M.D. [id number] SEND TO IC NO Normal [facility] Comment on above: Performed By: #### 2 [id number] #### [facility],[address] [place] [address] ED MED ADMINISTRATION DETAIL on 07-04-2024 ED MED ADMINISTRATION DETAIL [employer]ocker [place] [address] [id number] 07/03/2024 Patient: GIBRAN GARCIA Sex: Female : 1985 Age: 39y MEASUREMENTS: Wt: 74.8 kg, Ht/Alvaro: 68.0 in, BMI: 25.09 ALLERGIES: Toradol, iron supplement, tramadol Medication Ordered Medication Administration Date/Time Bactrim DS PO 1 00:30 07/04 Bactrim DS PO 1 tab given. Allergies verified and Given tab (NOW x1) confirmed 5 rights. Information reviewed with patient including 00:30 07/04/2024 reason for taking this medication. Verbalizes understanding. - Lexa Whitfield R.N. 00:30 Lexa Whitfield R.N. Scanned 1 of 1 Normal [facility] ED NURSES CLINICAL NOTEon ED NURSES CLINICAL NOTE Nurse Narrative Nurse Clinical Narrative [id number] [place] [address] [phone] 07/03/2024 Patient: GIBRAN GARCIA Sex: Female : 1985 Age: 39y Disposition: Discharge to Home Disposition Decision Time: 00:45 07/04/2024 Departure Time: 00:50 07/04/2024 TRIAGE Historian: patient. Primary physician (Jason). Triage time: 20:46 07/03/2024. Acuity: LEVEL 4. Chief Complaint: PAINFUL URINATION, URGENCY and FREQUENCY. This started last night. The patient has had flank pain. SEPSIS SCREEN: NEGATIVE. SIRS criteria negative. No possible sources of infection. -- 20:49 07/03/24 JJ Valle R.N. 20:53 07/03/24. BP: 118/74 MAP: 89. HR: 80. RR: 18. O2 saturation: 98% Temperature: 98.7 F. Pain level now 410. -- 20:53 07/03/24 JJ Valle R.N. Measurements: 20:49 07/03/24 Wt: 74.8 kg, Ht/Alvaro: 68.0 in, BMI: 25.09 -- 20:49 07/03/24 JJ Valle R.N. Medications: no known home medications -- 20:58 07/03/24 JJ Valle R.N. Allergies: 1 of 3 Nurse Narrative Toradol -- 20:47 07/03/24 JJ Valle R.N. tramadol -- 20:47 07/03/24 JJ Valle R.N. iron supplement -- 20:47 07/03/24 JJ Valle R.N. Problems: COPD - Chronic Obstructive Pulmonary Disease -- 20:47 07/03/24 JJ Valle R.N. cervical cancer -- 20:48 07/03/24 JJ Valle R.N. 20:46 07/03/24. Preferred pharmacy ([facility]). -- 20:49 07/03/24 JJ Valle R.N. ADDITIONAL SURGERIES: no known surgical history -- 20:53 07/03/24 JJ Valle R.N. History 20:46 07/03/24. SOCIAL HX: Heavy tobacco smoker- 1 pack per day. No alcohol use or drug use. The patient has not traveled outside the [place] Infectious disease exposure: No infectious disease exposure. ABUSE ASSESSMENT: The patient answered "yes" to the question(s) "Do you feel safe in your home?" and "no" to the question(s) Are you afraid to go home?". SELF HARM ASSESSMENT: Self harm assessment was performed. The patient answered "no" to the question(s) "Have you recently felt down, depressed, or hopeless?" and "Do you have thoughts of harming or killing yourself?". FALL RISK ASSESSMENT: Fall risk assessment completed. No risk factors identified. -- 20:49 07/03/24 JJ Valle R.N. Interventions 20:46 07/03/24. Advanced care plan (full code). -- 20:49 07/03/24 JJ Valle R.N. 2 of 3 Nurse Narrative PHYSICAL ASSESSMENT 23:27 07/03/24. Ambulatory to room. ( UTI sx for past day). GENERAL / NEURO / PSYCH: Alert. Oriented X 4. Appears in no acute distress. -- 23:27 07/03/24 JJ Whitfield R.N. NURSING PROGRESS NOTES 21:35 07/03/24. Patient ID band checked for patient name and birthdate: patient confirmed. Clean catch urine collected with return of yellow-colored urine; sample sent to lab for urinalysis. Specimen labeled in the presence of the patient. -- 21:45 07/03/24 JJ Valel R.N. 00:30 07/04/24. Bactrim DS PO 1 tab given. Allergies verified and confirmed 5 rights. Information reviewed with patient including reason for taking this medication. Verbalizes understanding. -- 00:30 07/04/24 JJ Whitfield R.N. DISPOSITION / DISCHARGE 00:47 07/04/24. BP: 124/76 MAP: 92. HR: 70. RR: 18. O2 saturation: 98% -- 01:13 07/04/24 JJ Whitfield R.N. Departure time: 00:50 07/04/2024. Condition at departure: improved and stable. No learning barriers present. Discharge instructions provided and reviewed with the patient. Reviewed medication(s). Treatments reviewed. Reviewed referrals. Patient verbalized understanding. Written instructions provided in Chinese. The patient was discharged home. The patient left ambulatory and via private vehicle. Patient driving. -- 01:13 07/04/24 EST Lexa Whitfield R.N. (Electronically signed by Lexa Whitfield R.N. 07/04/24 01:13:44 EST) Generated by [facility] 3 of 3 Normal [facility] ED ORDER SHEET (CPOE ONLY)on 07-04-2024 ED ORDER SHEET (CPOE ONLY) Order Sheet Order Sheet [address] [address] [id number] 07/03/2024 Patient: GIBRAN GARCIA Sex: Female : 1985 Age: 39y MEASUREMENTS: Wt: 74.8 kg, Ht/Alvaro: 68.0 in, BMI: 25.09 ALLERGIES: Toradol, iron supplement, tramadol MEDICATION/IV/DRIP/FLUID ORDERS Order Description Priority Entered Acknowledged Completed Bactrim DS PO1 tab (NOW x1) 00:17 07/04/2024 00:26 00:30 Nguyễn Mari D.O. 07/04/2024 07/04/2024 Richard Michele R.N. LAB ORDERS Order Description Priority Entered Acknowledged Collected Completed Urinalysis Stat Stat 21:39 07/03/2024 21:39 07/03/2024 21:40 07/03/2024 Richard Hayes R.N. Kobe Miller, R.N. Verbal Order, Auth by: Nguyễn Mari D.O. Read back and verified Urine Culture [CCL] Stat Stat 23:15 07/03/2024 23:21 07/03/2024 Farshad Lyons R.N. 1 of 2 Order Sheet DIAGNOSTIC STUDY ORDERS Order Description Priority Entered Acknowledged Completed STAFF ORDERS Order Description Priority Entered Acknowledged Collected Completed [Electronically signed by Nguyễn Mari D.O. (07/04/2024 01:45 EST)] 2 of 2 Normal [facility] ED PHYSICIAN CLINICAL REPORT on 07-04-2024 ED PHYSICIAN CLINICAL REPORT Narrative Physician Clinical Narrative [id number] [facility] [place] [address] [id number] 07/03/2024 Patient: GIBRAN GARCIA Sex: Female : 1985 Age: 39y Disposition: Discharge to Home Disposition Decision Time: 00:45 07/04/2024 Departure Time: 00:50 07/04/2024 Measurements Wt: 74.8 kg, Ht/Alvaro: 68.0 in, BMI: 25.09 Initial Vital Sign Measured Time BP MAP HR RR O2Sat ETCO2 Temp Pain GCS RTS 20:53 07/03/2024 118/74 89 80 18 98% 98.7 F 4 Time Seen: 22:58 07/03/2024. Arrived- By private vehicle. Historian- patient. HISTORY OF PRESENT ILLNESS Chief Complaint: DYSURIA. This started yesterday and still present. The symptoms are described as moderate. No abdominal pain, pelvic pain, vaginal pain, low back pain or flank pain. No missed period(s), irregular periods, abnormal bleeding, vaginal discharge or hematuria. The patient has had pain with urination, urinary frequency and urgency of urination. Denies current . Similar symptoms previously. Patient has had similar symptoms several times. Recent medical care: Not recently seen/assessed. 1 of 6 Narrative REVIEW OF SYSTEMS GI: No nausea, vomiting, diarrhea or black stools. NEUROLOGICAL: No headache. EYES: No eye discomfort. THROAT: No sore throat. RESPIRATORY: No cough or difficulty breathing. CVS: No chest pain. SKIN: No skin rash. ENDO/HEME/LYMPH: No enlarged lymph nodes. MUSCULOSKELETAL: No joint pain. CONSTITUTIONAL: No fever, chills or anorexia. PAST HISTORY See nurses notes. cervical cancer COPD - Chronic Obstructive Pulmonary Disease Surgeries: no known surgical history Medications: no known home medications Allergies: iron supplement Toradol tramadol SOCIAL HISTORY Heavy tobacco smoker- 1 pack per day. No alcohol use or drug use. ADDITIONAL NOTES The nursing notes have been reviewed. PHYSICAL EXAM Appearance: Alert. Oriented X3. No acute distress. HEENT: Normal external inspection. 2 of 6 Narrative ENT: Pharynx normal. Neck: Neck supple. CVS: Heart sounds normal. Respiratory: No respiratory distress. Breath sounds normal. Abdomen: Soft and nontender. Bowel sounds normal. No organomegaly. No mass. Back: Normal external inspection. Skin: Skin warm and dry. No rash. Extremities: Extremities nontender. No lower extremity edema. Neuro: Oriented X 3. Mood/affect normal. No motor deficit. No sensory deficit. LABS, X-RAYS, AND EKG Laboratory Tests: URINALYSIS Final SUNDAR: 07/03/2024 21:36:00 EST MsgRcvd: 07/03/2024 22:12 EST Lab Test Result Reference Status Received Comments 07/03/2024 22:12 URINALYSIS Final URINALYSIS EST 07/03/2024 22:12 Specimen Type R New Order EST NORMAL: 07/03/2024 22:12 Color bruna Final YELLOW EST NORMAL: 07/03/2024 22:12 Clarity sl.cloudy Final CLEAR EST NORMAL: 07/03/2024 22:12 ph 6 Final 5.0-8.0 EST 15 NORMAL: 07/03/2024 22:12 Protein Final Abnormal NEGATIVE EST NORMAL: 07/03/2024 22:12 Glucose NORM Final NORMAL EST 3 of 6 Narrative NORMAL: 07/03/2024 22:12 Ketone NEG Final NEGATIVE EST NORMAL: 07/03/2024 22:12 Bilirubin NEG Final NEGATIVE EST NORMAL: 07/03/2024 22:12 Blood NEG Final NEGATIVE EST 1 NORMAL: 07/03/2024 22:12 Urobilinog Final Abnormal NORMAL EST NORMAL: 07/03/2024 22:12 Sp Farwell 1.025 Final 1.010-1.030 EST NORMAL: 07/03/2024 22:12 Nitrite NEG Final NEGATIVE EST 25 NORMAL: 07/03/2024 22:12 Leukocytes Final Abnormal NEGATIVE EST 07/03/2024 22:12 Microscopic SEE BELOW Final MICROSCOPIC EST 07/03/2024 22:12 Wbc 1-5 0-5/hpf Final EST 07/03/2024 22:12 Rbc NONE 0-3/hpf Final EST 07/03/2024 22:12 Casts NONE Final EST 07/03/2024 22:12 Crystals NONE Final EST 07/03/2024 22:12 Amorphous NONE Final EST 07/03/2024 22:12 Bacteria TRACE Final EST 4 of 6 Narrative 07/03/2024 22:12 Epi Cells MODERATE Final EST 07/03/2024 22:12 Mucous NONE Final EST 07/03/2024 22:12 Yeast NONE Final EST PROGRESS AND PROCEDURES MEDICAL DECISION MAKING: Ordered tests include urinalysis. Abnormal tests include the urinalysis. The patient has been stable. Antimicrobials have been given. The vomiting has resolved. The pain and exam got better. (39-year-old white female complaining of some frequency and urgency with urination that started yesterday. With somewhat worse today. No nausea or vomiting. No flank pain. She states "I knew I had a urinary tract infection. I get them all the time". She was here last night with her who had a kidney stone so she is very familiar with kidney stone symptoms. She has never had a kidney stone the past and she does not feel that this is 1. She does have a past medical history of COPD. She is (more content not included)... Normal [facility] ED SUPER BILLon 07-04-2024 ED SUPER BILL [address] [address] [id number] 07/03/2024 Patient: GIBRAN GARCIA Sex: Female : 1985 Age: 39y Item Professional Category Description Facility Code Code Quantity Fee Total Nurse/E/M EMERGENCY 876483 1 $0.00 $0.00 DEPARTMENT VISIT MODERATE SEVERITY (85882-54) Grand Total $0.00 Providers Nguyễn Mari D.O. Chief Complaint DYSURIA. Principal Diagnosis Acute urinary tract infection with cystitis. No hematuria. ICD-10 Codes 1 of 2 [facility] N30.90: Cystitis, unspecified without hematuria 2 of 2 Normal [facility] ED VISIT SUMMARYon ED VISIT SUMMARY Visit Overview Visit Overview [address] [place] [address] [id number] 07/03/2024 Patient: GIBRAN GARCIA Sex: Female : 1985 Age: 39y 07/04/2024 01:45 AM EST ED Arrival:20:38 07/03/2024 EST Status: Recent Travel:no Language:eng Adv Directive: Isolation Status: Ethnicity:N Fall Risk:no risk Infectious Disease Exposure:no Measurements:5'8" / 172.7 Self-Harm Status:risk Sepsis Screen:negative cm 165.0 lb / 74.8 kg Chief Complaint:FREQUENCY, PAINFUL URINATION, URGENCY, and ([place]) ALLERGIES iron supplement Toradol tramadol HOME MEDICATIONS None PAST MEDICAL HISTORY / PROBLEMS 1 of 3 Visit Overview cervical cancer COPD - Chronic Obstructive Pulmonary Disease See nurses notes PAST SURGICAL HISTORY No Surgeries SOCIAL HISTORY Smoking status: Yes Alcohol use: No Drug use: No ED COURSE MEDICATIONS GIVEN IN EMERGENCY DEPARTMENT 00:30 07/04/24 Bactrim DS PO 1 tab IV SITE INFORMATION INTAKE OUTPUT REASSESMENT (most recent) 23:27 07/03/24. Ambulatory to room. ( UTI sx for past day). GENERAL / NEURO / PSYCH: Alert. Oriented X 4. Appears in no acute distress. VITAL SIGNS First Vitals Last Vitals Temp 20:53 07/03/24 98.7 F Temp 00:47 07/04/24 BP 20:53 07/03/24 118/74 BP 00:47 07/04/24 124/76 HR 20:53 07/03/24 80 HR 00:47 07/04/24 70 RR 20:53 07/03/24 18 RR 00:47 07/04/24 18 O2 Sat 20:53 07/03/24 98% O2 Sat 00:47 07/04/24 98% Pain 20:53 07/03/24 4 Pain 00:47 07/04/24 ETCO2 20:53 07/03/24 ETCO2 00:47 07/04/24 2 of 3 Visit Overview First Vitals Last Vitals GCS 20:53 07/03/24 GCS 00:47 07/04/24 RTS 20:53 07/03/24 RTS 00:47 07/04/24 PROCEDURES NURSING INTERVENTIONS LABS / STUDIES LABS / STUDIES ORDERED Urinalysis Urine Culture [CCL] CLINICAL IMPRESSION ACUTE URINARY TRACT INFECTION WITH CYSTITIS. NO HEMATURIA 3 of 3 Normal [facility] ED VITALS FLOW SHEETon 07-04 ED VITALS FLOW SHEET Vitals Vital Sign Flow Sheet [address] [place] [address] [phone] 07/03/2024 Patient: GIBRAN GARCIA Sex: Female : 1985 Age: 39y Measurements Wt: 74.8 kg, Ht/Alvaro: 68.0 in, BMI: 25.09 Measured Time BP MAP HR RR O2Sat ETCO2 Temp Pain GCS RTS 00:47 07/04/2024 124/76 92 70 18 98% 20:53 07/03/2024 118/74 89 80 18 98% 98.7 F 4 1 of 1 Normal [facility] Bacteria Ur Culton Bacteria identified Cx Nom (U) ORGANISM ID: 1 <10,000 CFU/ml Normal urogenital melissa Normal [facility] Comment on above: Performed By: #### 6 30-4 #### [facility] CLIA [id number] [address] [place] [address] URINALYSISon 07-03-2024 Amorphous NONE Normal [facility] Comment on above: Performed By: #### 2 50184 #### [facility],[address] [place] [address] Bacteria TRACE Normal [facility] Comment on above: Performed By: #### 2 10427 #### [facility],[address] [place], [place] [phone] Bilirubin Ql (U) Negative Normal NORMAL: NEGATIVE [facility] Comment on above: Performed By: #### 2 94673 #### [facility],[address] [place], [place] [phone] Casts NONE Normal [facility] Comment on above: Performed By: #### 2 06120 #### [facility],[address] [place] [address] Clarity (U) sl.cloudy Normal NORMAL: CLEAR [facility] Comment on above: Performed By: #### 2 06095 #### [facility],[address] [place] [address] Color (U) bruna Normal NORMAL: YELLOW [facility] Comment on above: Performed By: #### 2 52468 #### [facility],[address] [place] [address] Crystals LM Nom (Urine sed) NONE Normal [facility] Comment on above: Performed By: #### 2 49049 #### [facility],[address] [place] [address] Epi Cells MODERATE Normal [facility] Comment on above: Performed By: #### 2 04064 #### [facility],[address] [place] [address] Glucose Ql (U) NORM Normal NORMAL: NORMAL [facility] Comment on above: Performed By: #### 2 49097 #### [facility],[address] [place] [address] Hemoglobin Ql (U) Negative Normal NORMAL: NEGATIVE [facility] Comment on above: Performed By: #### 2 47338 #### [facility],[address] [place] [address] Ketone Negative Normal NORMAL: NEGATIVE [facility] Comment on above: Performed By: #### 2 90404 #### [facility],[address] [place] [address] Leukocytes 25 Abnormal NORMAL: NEGATIVE [facility] Comment on above: Performed By: #### 2 97717 #### [facility],[address] [place] [address] Mucous NONE Normal [facility] Comment on above: Performed By: #### 2 72660 #### [facility],[address] [place] [address] Nitrite Ql (U) Negative Normal NORMAL: NEGATIVE [facility] Comment on above: Performed By: #### 2 85558 #### [facility],[address] [place] [address] pH (U) 6 [pH] Normal NORMAL: 5.0-8.0 [facility] Comment on above: Performed By: #### 2 59051 #### [facility],[address] [place] [address] Protein Ql (U) 15 Abnormal NORMAL: NEGATIVE [facility] Comment on above: Performed By: #### 2 71587 #### [facility],[address] [place] [address] Rbc NONE Normal 0-3/hpf [facility] Comment on above: Performed By: #### 2 32425 #### [facility],[address] [place] [address] Sp Farwell 1.025 Normal NORMAL: 1.010-1.030 [facility] Comment on above: Performed By: #### 2 72399 #### [facility],[address] [place] [address] Specimen Type R Normal [facility] Comment on above: Performed By: #### 2 34343 #### [facility],[address] [place] [address] Urinalysis dipstick W Reflex Microscopic panel (U) SEE BELOW Normal [facility] Comment on above: Result Comment: MICR OSCOPIC Performed By: #### 2 16229 #### [facility],[address] [place] [address] Urobilinog 1 Abnormal NORMAL: NORMAL [facility] Comment on above: Performed By: #### 2 18201 #### [facility],[address] [place], [place] [phone] Wbc 1-5 Normal 0-5/hpf [facility] Comment on above: Performed By: #### 2 85199 #### [facility],[address] [place], [place] [phone] Yeast NONE Normal [facility] Comment on above: Performed By: #### 2 80638 #### [facility],[address] [place] [address] CHEST 1 VIEWon 03-01-2024 CHEST 1 VIEW [place] [address] Patient: GIBRAN GARCIA Phone#: : 1985 Age: 38 Gender: F Pt. Type: ER Account: [id number] Location: 2 Ordering: DR. AARTI MILLER Exam Date: 03/01/2024/15:59 Family Phys: DEREK MCDUFFIE Charge Code: 917803 Physician: Tyler Order #: [id number] Dose#: PROCEDURE: X-RAY CHEST 1 VIEW COMPARISON: [facility], XR, CHEST 1 VIEW, 09/19/2023, 19:40. INDICATIONS: Cough. FINDINGS: LUNGS: Normal. No significant pulmonary parenchymal abnormalities. VASCULATURE: Normal. Unremarkable pulmonary vasculature. CARDIAC: Normal. No cardiac silhouette abnormality or cardiomegaly. MEDIASTINUM: Normal. No visible mass or adenopathy. PLEURA: Normal. No effusion or pleural thickening. BONES: Normal. No fracture or visible bony lesion. OTHER: Negative. CONCLUSION: No acute disease. Dictated by: Lashae Clayton MD on 03/01/2024 at 16:24 Approved by: Lashae Clayton MD on 03/01/2024 at 16:28 Normal [facility] CORONAVIRUS (SARS) ANTIGEN T ESTon 03-01-2024 EXTERNAL QC DONE? YES Normal [facility] Comment on above: Performed By: #### 2 39936 #### [facility],[address] [place] [address] INTERNAL CONTROL PASS Normal [facility] Comment on above: Performed By: #### 2 09398 #### [facility],[address] [place] [address] SARS ANTIGEN Negative Normal NORMAL: NEGATIVE [facility] Comment on above: Performed By: #### 2 02824 #### [facility],[address] [place] [address] SEND TO ? NO Normal [facility] Comment on above: Result Comment: SARS -CoV-2 THIS TEST IS BEING USED UNDER THE FDA EUA PROCEDURE. THIS ASSAY HAS BEEN VALIDATED AT [facility] FOR USE WITH NASAL AND NASOPHARYNGEAL SWAB SPECIMENS. INTERPRETIVE DATA TEST RESULTS SHOULD ALWAYS BE CONSIDERED IN THE CONTEXT OF CLINICAL OBSERVATIONS AND EPIDEMIOLOGICAL DATA IN MAKING FINAL DIAGNOSIS AND PATIENT MANAGEMENT DECISIONS. PATIENT MANAGEMENT SHOULD FOLLOW CURRENT CDC GUIDELINES. THE ANNETTA SARS ANTIGEN ASHLEY DOES NOT DIFFERENTIATE BETWEEN SARS-CoV & SARS-CoV-2. A POSITIVE TEST RESULT INDICATES THE PRESENCE OF SARS-CoV-2 NUCLEOCAPSID PROTEIN ANTIGEN, AND THE PATIENT IS INFECTED WITH THE VIRUS AND PRESUMED TO BE CONTAGIOUS. A NEGATIVE TEST RESULT FOR THIS TEST MEANS THAT SARS-CoV-2 NUCLEOCAPSID PROTEIN ANTIGEN WAS NOT PRESENT IN THE SPECIMEN ABOVE THE LIMIT OF DETECTION. HOWEVER, A NEGATIVE RESULT DOES NOT RULE OUT COVID-19 AND SHOULD NOT BE USED THE SOLE BASIS FOR TREATMENT OR PATIENT MANAGEMENT DECISIONS. A NEGATIVE RESULT DOES NOT EXCLUDE THE POSSIBILITY OF COVID-19. NEGATIVE RESULTS, FROM PATIENTS WITH SYMPTOM ONSET BEYOND FIVE DAYS, SHOULD BE TREATED PRESUMPTIVE AND CONFIRMATION WITH A MOLECULAR ASSAY, IF NECESSARY, FOR PATIENT MANAGEMENT, MAY BE PERFORMED. WHEN DIAGNOSTIC TESTING IS NEGATIVE, THE POSSIBLILTY OF A FALSE NEGATIVE RESULT SHOULD BE CONSIDERED IN THE CONTEXT OF A PATIENT'S RECENT EXPOSURES AND THE PRESENCE OF CLINICAL SIGNS AND SYMPTOMS CONSISTENT WITH COVID-19. THE POSSIBILITY OF A FALSE NEGATIVE RESULT SHOULD ESPECIALLY BE CONSIDERED IF THE PATIENT'S RECENT EXPOSURES OR CLINICAL PRESENTATION INDICATE THAT COVID-19 IS LIKELY, AND DIAGNOSTIC TESTS FOR OTHER CAUSES OF ILLNESS (e.g., OTHER RESPIRATORY ILLNESS) ARE NEGATIVE. IF COVID-19 IS STILL SUSPECTED BASED ON EXPOSURE HISTORY TOGETHER WITH OTHER CLINICAL FINDINGS, RE-TESTING SHOULD BE CONSIDERED BY HEALTHCARE PROVIDERS IN CONSULTATION WITH PUBLIC HEALTH AUTHORITIES. Performed By: #### 2 [id number] #### [facility],[address] [place] [address] INFLUENZA VIRUS RAPID A/Bon 03-01-2024 INFLUENZA VIRUS RAPID A/B INFLUENZA A NEGATIVE INFLUENZA B NEGATIVE INTERNAL NEG QC PASS INTERNAL POS QC PASS EXTERNAL QC DONE? YES SEND TO IC? NO A NEGATIVE TEST RESULT DOES NOT EXCLUDE INFECTION WITH INFLUENZA A OR B. THEREFORE, THE RESULTS OBTAINED FROM THIS FLU TEST SHOULD BE USED IN CONJUCTION WITH CLINICAL FINDINGS TO MAKE AN ACCURATE DIAGNOSIS. A POSITIVE RESULT DOES NOT RULE OUT CO-INFECTIONS WITH OTHER PATHOGENS OR IDENTIFY ANY SPECIFIC INFLUENZA A VIRUS SUBTYPE.CO-INFECTION WITH INFLUENZA A AND B IS RARE. IT IS RECOMMENDED THAT "DUAL POSITIVE" RESULTS BE CONFIRMED BY VIRAL CULTURE OR AN FDA-CLEARED INFLUENZA A AND B MOLECULAR ASSAY. INDIVIDUALS WHO HAVE RECEIVED NASALLY ADMINISTERED INFLUENZA A VACCINE MAY TEST POSITIVE IN COMMERCIALLY AVAILABLE INFLUENZA RAPID DIAGNOSTIC TESTS FOR UP TO THREE DAYS. RESULT CRITICAL? NO Normal [facility] Comment on above: Performed By: #### 2 61524 ####[facility],[address] [place], [place] [id number] BMP with eGFRon 09-19-2023 AGE 38 years Normal [facility] Comment on above: Performed By: #### 2 87763 #### [facility],[address] [place], [place] [phone] Anion gap [Moles/Vol] 11 mmol/L Normal 10 - 20 [facility] Comment on above: Performed By: #### 2 84266 #### [facility],[address] [place] [address] BMP with eGFR Normal [facility] Comment on above: Result Comment: BASI C METABOLIC PANEL Performed By: #### 2 41483 #### [address] [address] Calcium [Mass/Vol] 9.0 mg/dL Normal 8.5 - 10.1 [facility] Comment on above: Performed By: #### 2 67818 #### [facility],[address] [place] [address] Chloride [Moles/Vol] 102 mmol/L Normal 98 - 107 [facility] Comment on above: Performed By: #### 2 81053 #### [address] [address] CO2 [Moles/Vol] 29.9 mmol/L Normal 21.0 - 32.0 [facility] Comment on above: Performed By: #### 2 96622 #### [facility],[address] [place] [address] Creatinine [Mass/Vol] 0.72 mg/dL Normal 0.55 - 1.02 [facility] Comment on above: Performed By: #### 2 96585 #### [facility],[address] [place] [address] GFR/1.73 sq M.predicted among non-blacks MDRD (S/P/Bld) [Vol rate/Area] mL/min/{1.73_m2} Normal 60 - 999 [facility] Comment on above: Performed By: #### 2 85595 #### [facility],[address] [place], [place] [phone] Result Comment: ACCO RDING TO THE NATIONAL KIDNEY DISEASE EDUCATION PROGRAM(NKDE), A NORMAL eGFR IS A VALUE GREATER THAN OR EQUAL TO 60 ML/MIN/1.73 SQ METERS. CHRONIC KIDNEY DISEASE: <60mL/MIN/1.73 SQ METERS KIDNEY FAILURE: <15mL/MIN/1.73 SQ METERS THIS TEST SHOULD ONLY BE USED FOR PATIENTS 18 YEARS OF AGE AND OLDER. Glucose [Mass/Vol] 79 mg/dL Normal 74 - 106 [facility] Comment on above: Performed By: #### 2 84998 #### [address] [address] Potassium [Moles/Vol] 3.7 mmol/L Normal 3.5 - 5.1 [facility] Comment on above: Performed By: #### 2 01208 #### [facility],[address] [place] [address] Sodium [Moles/Vol] 139 mmol/L Normal 136 - 145 [facility] Comment on above: Performed By: #### 2 92870 #### [address] [address] Urea nitrogen [Mass/Vol] 8 mg/dL Normal 7 - 18 [facility] Comment on above: Performed By: #### 2 61335 #### [facility],[address] [place] [address] CBC + DIFFon 09-19-2023 Baso # 0.01 x10EE3/UL Normal 0.00 - 0.10 [facility] Comment on above: Performed By: #### 2 89291 ####[facility],[address] [place] [address] Basophils/100 WBC (Bld) 0.2 % Normal 0.0 - 2.0 [facility] Comment on above: Performed By: #### 2 13709 ####[facility],[address] [place] [address] CBC + DIFF Normal [facility] Comment on above: Result Comment: CBC- COMPLETE BLOOD COUNT Performed By: #### 2 60513 ####[facility],[address] [place] [address] EO # 0.13 x10EE3/UL Normal 0.00 - 0.50 [facility] Comment on above: Performed By: #### 2 92175 ####[facility],[address] [place], [place] [phone] Eosinophils/100 WBC (Bld) 2.0 % Normal 0.0 - 7.0 [facility] Comment on above: Performed By: #### 2 19736 ####[facility],[address] [place], [place] [phone] Erythrocyte distribution width (RBC) [Ratio] 12.3 % Normal 12.0 - 15.6 [facility] Comment on above: Performed By: #### 2 68459 ####[facility],[address] [place] [address] Hematocrit (Bld) [Volume fraction] 41.2 % Normal 34.0 - 46.0 [facility] Comment on above: Performed By: #### 2 80836 ####[facility],[address] [place] [address] Hemoglobin (Bld) [Mass/Vol] 14.2 g/dL Normal 12.0 - 16.0 [facility] Comment on above: Performed By: #### 2 56817 ####[facility],[address] [place] [address] Lymph # 1.87 x10EE3/UL Normal 0.80 - 2.80 [facility] Comment on above: Performed By: #### 2 97745 ####[facility],[address] [place] [address] Lymphocytes/100 WBC (Bld) 28.5 % Normal 20.0 - 45.0 [facility] Comment on above: Performed By: #### 2 63077 ####[facility],[address] [place] [address] MANUAL DIFF N/A Normal [facility] Comment on above: Performed By: #### 2 65671 ####[facility],[address] [place] [address] MCH (RBC) [Entitic mass] 33 pg Normal 27 - 33 [facility] Comment on above: Performed By: #### 2 96218 ####[facility],[address] [place] [address] MCHC 34 X10 3 Normal 32 - 36 [facility] Comment on above: Performed By: #### 2 48025 ####[facility],[address] [place], [place] [phone] MCV (RBC) [Entitic vol] 95 fL Normal 80 - 99 [facility] Comment on above: Performed By: #### 2 23172 ####[facility],[address] [place] [address] Roberts # 0.52 x10EE3/UL Normal 0.20 - 1.00 [facility] Comment on above: Performed By: #### 2 28892 ####[facility],[address] [place] [address] MONOS % 8.0 % Normal 0.0 - 10.0 [facility] Comment on above: Performed By: #### 2 01440 ####[facility],[address] [place] [address] Morphology Bobo (Bld) [Interp] N/A Normal [facility] Comment on above: Performed By: #### 2 87925 ####[facility],[address] [place] [address] Neut # 4.02 x10EE3/UL Normal 1.50 - 7.10 [facility] Comment on above: Performed By: #### 2 02740 ####[facility],[address] [place] [address] Neutrophils/100 WBC (Bld) 61.3 % Normal 46.0 - 76.0 [facility] Comment on above: Performed By: #### 2 53291 ####[facility],[address] [place] [address]88 PLATELET 218 x10EE3/UL Normal 150 - 450 [facility] Comment on above: Performed By: #### 2 17042 ####[facility],[address] [place] [address] Platelet mean volume (Bld) [Entitic vol] 8.9 fL Normal 6.6 - 10.5 [facility] Comment on above: Result Comment: AUTO MATED DIFFERENTIAL Performed By: #### 2 36167 ####[facility],[address] [place] [address] RBC 4.35 x 10EE6/UL Normal 4.10 - 5.30 [facility] Comment on above: Performed By: #### 2 87836 ####[facility],[address] [place] [address] WBC 6.6 x 10EE3/UL Normal 4.5 - 10.8 [facility] Comment on above: Performed By: #### 2 02345 ####[facility],[address] [place] [address] CHEST 1 VIEWon 09-19-2023 CHEST 1 VIEW [place] [address] Patient: DARIUS CHRISTIANSON Phone#: : 1985 Age: 38 Gender: F Pt. Type: ER Account: [id number] Location: 2 Ordering: DR. OLIVIER BURROWS Exam Date: 09/19/2023/19:40 Family Phys: DEREK MCDUFFIE Charge Code: 346263 Physician: Tyler Order #: [id number] Dose#: PROCEDURE: X-RAY CHEST 1 VIEW COMPARISON: None. INDICATIONS: Cough. FINDINGS: LUNGS: Normal. No significant pulmonary parenchymal abnormalities. VASCULATURE: Normal. Unremarkable pulmonary vasculature. CARDIAC: Normal. No cardiac silhouette abnormality or cardiomegaly. MEDIASTINUM: Normal. No visible mass or adenopathy. PLEURA: Normal. No effusion or pleural thickening. BONES: Normal. No fracture or visible bony lesion. OTHER: Negative. CONCLUSION: No acute disease. Dictated by: Lisa Case MD on 09/20/2023 at 3:07 Approved by: Lisa Case MD on 09/20/2023 at 3:07 Normal [facility] XR Lumbar spine 3 Viewson IMPRESSION: Negative lumbar spine X-ray. Cutting Inspector: [facility] Transcribe Date/Time: Jul 02 2022 6:18P Dictated by : JUMANA GIBSON MD This examination was interpreted and the report reviewed and electronically signed by: JUMANA GIBSON MD on Jul 02 2022 6:19PM [facility] DIVISION OF RADIOLOGY * * *Final Report* * * DATE OF EXAM: Jul 01 2022 11:04AM WOX 5228 - XR LUMBAR 3V AP/LAT/L5-S1 / PROCEDURE REASON: multiple diagnoses * * * * Physician Interpretation * * * * EXAM TITLE: XR LUMBAR 3V AP/LAT/L5-S1 EXAM DATE/TIME: 07/01/2022 11:04 AM COMPARISON: None. CLINICAL INDICATION/HISTORY: Pain down the legs. TECHNIQUE: AP, lateral and cone down lateral views of the lumbar spine are presented. FINDINGS: There are five [id number]-fbn-comsltd lumbar vertebrae. No fracture or subluxations are noted. The disc spaces are well preserved. There is no significant osteophyte formation. Others: Multiple tubular ligation surgical clips in the pelvis. Also seen is a T-shaped IUD. DIVISION OF RADIOLOGY Provider, Gustavo Sun - 07/02/2022 * * *Final Report* * * DATE OF EXAM: Jul 01 2022 11:04AM WOX 5228 - XR LUMBAR 3V AP/LAT/L5-S1 / PROCEDURE REASON: multiple diagnoses * * * * Physician Interpretation * * * * EXAM TITLE: XR LUMBAR 3V AP/LAT/L5-S1 EXAM DATE/TIME: 07/01/2022 11:04 AM COMPARISON: None. CLINICAL INDICATION/HISTORY: Pain down the legs. TECHNIQUE: AP, lateral and cone down lateral views of the lumbar spine are presented. FINDINGS: There are five pzg-plv-jnviiiy lumbar vertebrae. No fracture or subluxations are noted. The disc spaces are well preserved. There is no significant osteophyte formation. Others: Multiple tubular ligation surgical clips in the pelvis. Also seen is a T-shaped IUD. IMPRESSION IMPRESSION: Negative lumbar spine X-ray. Cutting Inspector: [facility] Transcribe Date/Time: Jul 02 2022 6:18P Dictated by : JUMANA GIBSON MD This examination was interpreted and the report reviewed and electronically signed by: JUMANA GIBSON MD on Jul 02 2022 6:19PM [facility] XR Lumbar spine 3 ViewsOrder ed By: Ccf Provider on 07-02-2022 [facility] CBC W Auto Differential pane l (Bld)on 07-01-2022 Basophils (Bld) [#/Vol] 0.05 10*3/uL <0.11 k/uL [facility] Basophils/100 WBC (Bld) 0.7 % [facility] Differential cell count method Nom (Bld) Auto [facility] Eosinophils (Bld) [#/Vol] 0.10 10*3/uL <0.46 k/uL [facility] Eosinophils/100 WBC (Bld) 1.4 % [facility] Erythrocyte distribution width (RBC) [Ratio] 11.3 % Low 11.5 - 15.0 % [facility] Hematocrit (Bld) [Volume fraction] 44.6 % 36.0 - 46.0 % [facility] Hemoglobin (Bld) [Mass/Vol] 15.5 g/dL 11.5 - 15.5 g/dL [facility] Immature granulocytes (Bld) [#/Vol] <0.10 k/uL [facility] Immature granulocytes/100 WBC (Bld) 0.3 % [facility] Lymphocytes (Bld) [#/Vol] 1.94 10*3/uL 1.00 - 4.00 k/uL [facility] Lymphocytes/100 WBC (Bld) 26.9 % [facility] MCH (RBC) [Entitic mass] 32.9 pg 26.0 - 34.0 pg [facility] MCHC (RBC) [Mass/Vol] 34.8 g/dL 30.5 - 36.0 g/dL [facility] MCV (RBC) [Entitic vol] 94.7 fL 80.0 - 100.0 fL [facility] Monocytes (Bld) [#/Vol] 0.50 10*3/uL <0.87 k/uL [facility] Monocytes/100 WBC (Bld) 6.9 % [facility] Neutrophils (Bld) [#/Vol] 4.61 10*3/uL 1.45 - 7.50 k/uL [facility] Neutrophils/100 WBC (Bld) 63.8 % [facility] Nucleated RBC (Bld) [#/Vol] <0.01 k/uL [facility] Nucleated RBC/100 WBC (Bld) [Ratio] 0.0 /100 WBC [facility] Platelet mean volume (Bld) [Entitic vol] 11.9 fL 9.0 - 12.7 fL [facility] Platelets (Bld) [#/Vol] 197 10*3/uL 150 - 400 k/uL [facility] RBC (Bld) [#/Vol] 4.71 10*6/uL 3.90 - 5.2 0 m/uL [facility] WBC (Bld) [#/Vol] 7.22 10*3/uL 3.70 - 11.00 k/uL [facility] Venous Duplex US - Sánchez [facility] 07-01-2022 Venous Duplex US - Sánchez [facility] [address] [place] [address] Venous Duplex US - Sánchez [facility] 07/01/22 1252 MR#: [id number] Acct: [id number] Name: DARIUS CHRISTIANSON Rep #: [id number] : 1985 37 From: Daquan Alcala MD Attending Dr: Dr. Derek Mcduffie MD Status: REG CLI Ordering Dr: Derek Mcduffie MD Date: 07/01/22 Location: CVS Sex: F C Admitted: Reason For Study: Swelling/pain RIGHT LEFT GSV is normal. GSV is normal. CFV is compressible, spontaneous, phasic, CFV is compressible, spontaneous, phasic, competent and demonstrates normal competent, and demonstrates normal augmentation. augmentation. FV is compressible, spontaneous, phasic, FV is compressible, spontaneous, phasic, competent and demonstrates normal competent and demonstrates normal augmentation. augmentation. POP V is compressible, spontaneous, phasic, POP V is compressible, spontaneous, phasic, competent and demonstrates normal competent and demonstrates normal augmentation. augmentation. T/P Trunk is compressible. T/P Trunk is compressible. PTV is compressible. PTV is compressible. RT PerV is compressible. LT PerV is compressible. Procedure This is a venous duplex using B-mode, color flow and spectral Doppler. Exam performed in department. A preliminary report was called and/or faxed to [place]. VL/Venous Duplex US - Sánchez Extrem Interpretation Summary No evidence for acute deep venous thrombosis bilateral lower extremities with patent and compressible bilateral great saphenous veins. ___ Ordering Physician: Derek Mcduffie Referring Physician: Derek Mcduffie Performed By: Cristina Devi RVT 07/01/22 1431 Date Daquan Alcala MD CC: Dr. Derek Mcduffie MD Date Dictated: 07/01/22 1252 Date Transcribed: 07/01/22 1431 Cutting Inspector: Signed Normal [facility] XR Lumbar spine 3 Viewson Radiology Study observation (narrative) [facility] MRI LIVER WO/W IVCONon 04-19 [facility] US ABD RT UPPER QUADRANTon 1 [facility] Comprehensive Metabolic Prof ilon 03-20-2022 Albumin/Globulin [Mass ratio] 0.9 {ratio} Normal 0.9-2.4 [facility] Comment on above: Performed By: #### L 100.0100, L500.3400, L500.4050, L700.6800 #### [facility] [address] [place], [address] BUN/CRE 17.3 RATIO Normal 10-20 [facility] Comment on above: Performed By: #### L 100.0100, L500.3400, L500.4050, L700.6800 #### [facility] [address] [place], [address] CA,Total 9.4 mg/dL Normal 8.5-10.1 [facility] Comment on above: Performed By: #### L 100.0100, L500.3400, L500.4050, L700.6800 #### [facility] [address] [place], [address] Chloride [Moles/Vol] 106 mmol/L Normal 98-107 [facility] Comment on above: Performed By: #### L 100.0100, L500.3400, L500.4050, L700.6800 #### [facility] [address] [place], [address] CO2 [Moles/Vol] 29.0 mmol/L Normal 21.0-32.0 [facility] Comment on above: Performed By: #### L 100.0100, L500.3400, L500.4050, L700.6800 #### [facility] [address] [place], [address] Creatinine [Mass/Vol] 0.75 mg/dL Normal 0.55-1.02 [facility] Comment on above: Result Comment: The validity of the calculated GFR GFRAA in patients over 70 years has not been determined. Clinical correlation is essential. Performed By: #### L 100.0100, L500.3400, L500.4050, L700.6800 #### [facility] [address] [place], [address] ECRCL 103.60 ml/min Normal [facility] Comment on above: Performed By: #### L 100.0100, L500.3400, L500.4050, L700.6800 #### [facility] [address] [place], [address] EST GFR - AA 111 mL/min Normal >60 [facility] Comment on above: Result Comment: Afri can [place] GFR Calc Performed By: #### L 100.0100, L500.3400, L500.4050, L700.6800 #### [facility] [address] [place], [address] GAP 5 Normal 5-15 [facility] Comment on above: Performed By: #### L 100.0100, L500.3400, L500.4050, L700.6800 #### [facility] [address] [place], [address] GFR/1.73 sq M.predicted among non-blacks MDRD (S/P/Bld) [Vol rate/Area] 92 mL/min/{1.73_m2} Normal >60 [facility] Comment on above: Result Comment: Non- GFR Calc Performed By: #### L 100.0100, L500.3400, L500.4050, L700.6800 #### [facility] [address] [place], [address] Glucose [Mass/Vol] 96 mg/dL Normal 74-106 [facility] Comment on above: Performed By: #### L 100.0100, L500.3400, L500.4050, L700.6800 #### [facility] [address] [place], [address] Potassium [Moles/Vol] 2.9 mmol/L Low 3.5-5.1 [facility] Comment on above: Performed By: #### L 100.0100, L500.3400, L500.4050, L700.6800 #### [facility] [address] [place], [address] Sodium [Moles/Vol] 140 mmol/L Normal 136-145 [facility] Comment on above: Performed By: #### L 100.0100, L500.3400, L500.4050, L700.6800 #### [facility] [address] [place], [address] Urea nitrogen [Mass/Vol] 13 mg/dL Normal 7-18 [facility] Comment on above: Performed By: #### L 100.0100, L500.3400, L500.4050, L700.6800 #### [facility] [address] [place], [address] Liver Profileon 03-20-2022 Albumin [Mass/Vol] 4.0 g/dL Normal 3.2-5.0 [facility] Comment on above: Performed By: #### L 100.0100, L500.3400, L500.4050, L700.6800 #### [facility] [address] [place], [address] ALK P 82 U/L Normal 45-117 [facility] Comment on above: Performed By: #### L 100.0100, L500.3400, L500.4050, L700.6800 #### [facility] [address] [place], [address] ALT [Catalytic activity/Vol] 18 U/L Normal 13-56 [facility] Comment on above: Performed By: #### L 100.0100, L500.3400, L500.4050, L700.6800 #### [facility] [address] [place], [address] AST [Catalytic activity/Vol] 15 U/L Normal 15-37 [facility] Comment on above: Performed By: #### L 100.0100, L500.3400, L500.4050, L700.6800 #### [facility] [address] [place], [address] Bilirubin [Mass/Vol] 0.30 mg/dL Normal 0.20-1.00 [facility] Comment on above: Result Comment: For patients on eltrombopag therapy, use of Dimension [place] TBIL is not recommended. Performed By: #### L 100.0100, L500.3400, L500.4050, L700.6800 #### [facility] [address] [place], [address] Bilirubin.direct [Mass/Vol] 0.11 mg/dL Normal 0.00-0.30 [facility] Comment on above: Performed By: #### L 100.0100, L500.3400, L500.4050, L700.6800 #### [facility] [address] [place], [address] Globulin (S) [Mass/Vol] 4.5 g/dL High 2.2-4.2 [facility] Comment on above: Performed By: #### L 100.0100, L500.3400, L500.4050, L700.6800 #### [facility] [address] [place], [address] T PROT 8.5 g/dL High 6.4-8.2 [facility] Comment on above: Performed By: #### L 100.0100, L500.3400, L500.4050, L700.6800 #### [facility] [address] [place], [address] ,Serum,hCG Quali.on 03-20-2022 HCG, SERUM QUAL Negative Normal [facility] Comment on above: Performed By: #### L 100.0100, L500.3400, L500.4050, L700.6800 #### [facility] [address] [place], [address] Abdomen/Pelvis WITH Contrast on 03-19-2022 Abdomen/Pelvis WITH Contrast [facility] Imaging Services [address] [place] [address] Abdomen/Pelvis WITH Contrast MR#: [id number] Acct: [id number] Name: DARIUS CHRISTIANSON Rep #: [id number] : 1985 F 36 From: Derrek Barraza MD PCP: Dr. Derek Mcduffie MD Status: REG ER Study: Abdomen/Pelvis WITH Contrast Date of Exam: Exam# [id number] Ordering Dr: Eric Salcido DO INDICATION: RLQ pain EXAMINATION: CT ABDOMEN AND PELVIS WITH CONTRAST - CT Abdomen And Pelvis W/ Contrast Injection TECHNIQUE: Helically acquired images were obtained of the abdomen and pelvis following IV contrast. A radiation dose optimization technique was used for this scan. IV Contrast dosage and agent: 100 cc Isovue-300 Oral contrast: Yes COMPARISON: 01/16/2020 FINDINGS: LOWER CHEST: Lung bases are clear. No cardiomegaly or pericardial effusion. LIVER: 2 cm low-attenuation lesion right lobe posteriorly with suggestion of peripheral puddling enhancement. GALLBLADDER AND BILIARY TREE: No calcified gallstones. No gallbladder distension or wall edema. No intra- or extrahepatic biliary ductal dilation. PANCREAS: No focal cystic or solid mass. SPLEEN: Normal size without focal cystic or solid mass. ADRENAL GLANDS: No nodules. KIDNEYS AND URETERS: Normal renal size and position. No hydronephrosis. PERITONEUM: No ascites or free air. BOWEL: Normal appendix. No stomach or bowel distension. No focal inflammatory change. Diffusely increased colonic fecal burden. LYMPH NODES: No enlarged mesenteric or retroperitoneal lymph nodes. VESSELS: Aorta is non-dilated. URINARY BLADDER: Unremarkable. REPRODUCTIVE ORGANS: IUD in place. ABDOMINAL WALL: No discrete abdominal or pelvic wall hernia. BONES: Unremarkable. CT/Abdomen/Pelvis WITH Contrast IMPRESSION: No acute findings in the abdomen or pelvis. Colonic fecal burden consistent with clinical constipation. 2 cm lesion in the right hepatic lobe, likely small hemangioma but cannot be fully characterized on single phase study. Recommend follow-up hepatic ultrasound or multiphasic hepatic CT for further evaluation. Electronically Signed: Derrek Barraza MD at 0:03 EDT , CC: Dr. Eric Salcido DO; Dr. Derek Mcduffie MD Cutting Inspector: Signed Normal [facility] Absolute lymphocyte counton 03-19-2022 Lymphocytes Auto (Unsp spec) [#/Vol] 2.72 10*3/uL 0.83-4.51 [facility] Work Phone: Basophil percentageon 2021 Basophils/100 WBC (Bld) 0.7 % 0-1 [facility] Work Phone: Bilirubin [Mass/Vol] 0.30 mg/dL 0.20-1.00 [facility] Work Phone: Comment on above: For patients on eltr ombopag therapy, use of Dimension [place] TBIL is not recommended. Chloride [Moles/Vol] 106 mmol/L 98-107 [facility] Work Phone: Eosinophils/100 WBC (Bld) 1.9 % 0-5 [facility] Work Phone: Glucose [Mass/Vol] 96 mg/dL 74-106 [facility] Work Phone: Neutrophils (Bld) [#/Vol] 3.4 10*3/uL 2.0-7.7 [facility] Work Phone: Neutrophils/100 WBC (Bld) 50.0 % 47-70 [facility] Work Phone: Potassium [Moles/Vol] 2.9 mmol/L 3.5-5.1 [facility] Work Phone: Protein [Mass/Vol] 8.5 g/dL 6.4-8.2 [facility] Work Phone: Sodium [Moles/Vol] 140 mmol/L 136-145 [facility] Work Phone: WBC (Bld) [#/Vol] 6.9 10*3/uL 4.4-11.0 [facility] Work Phone: Beta hCG serum qualon 2021 Beta HCG ( test) Ql Negative [facility] Work Phone: Blood erythrocytes count (nu mber/volume)on 03-19-2022 RBC (Bld) [#/Vol] 4.22 10*6/uL 4.2-5.4 [facility] Work Phone: Blood hemoglobin measurement (mass/volume)on 03-19-2022 Hemoglobin (Bld) [Mass/Vol] 14.2 g/dL 12.0-15.0 [facility] Work Phone: Blood lymphocytes/100 leukoc yteson 03-19-2022 Lymphocytes/100 WBC (Bld) 39.5 % 19-41 [facility] Work Phone: Blood monocytes/100 leukocyt eson 03-19-2022 Monocytes/100 WBC (Bld) 7.8 % 0-10 [facility] Work Phone: Blood platelet mean volumeon 03-19-2022 Platelet mean volume (Bld) [Entitic vol] 11.3 fL 6.2-12.0 [facility] Work Phone: CBC W/Diff, Automatedon 10-2 Absolute Lymph 2.72 X10 3/uL Normal 0.83-4.51 [facility] Comment on above: Performed By: #### L 100.0100, L500.3400, L500.4050, L700.6800 #### [facility] [address] [place], [address] Absolute Neut 3.4 X10 3/uL Normal 2.0-7.7 [facility] Comment on above: Performed By: #### L 100.0100, L500.3400, L500.4050, L700.6800 #### [facility] [address] [place], [address] Basophils/100 WBC (Bld) 0.7 % Normal 0-1 [facility] Comment on above: Performed By: #### L 100.0100, L500.3400, L500.4050, L700.6800 #### [facility] [address] [place], [address] Eosinophils/100 WBC (Bld) 1.9 % Normal 0-5 [facility] Comment on above: Performed By: #### L 100.0100, L500.3400, L500.4050, L700.6800 #### [facility] [address] [place], [address] Erythrocyte distribution width (RBC) [Ratio] 11.9 % Normal 11.6-14.6 [facility] Comment on above: Performed By: #### L 100.0100, L500.3400, L500.4050, L700.6800 #### [facility] [address] [place], [address] Hematocrit (Bld) [Volume fraction] 40.1 % Normal 37-47 [facility] Comment on above: Performed By: #### L 100.0100, L500.3400, L500.4050, L700.6800 #### [facility] [address] [place], [address] Hemoglobin (Bld) [Mass/Vol] 14.2 g/dL Normal 12.0-15.0 [facility] Comment on above: Performed By: #### L 100.0100, L500.3400, L500.4050, L700.6800 #### [facility] [address] [place], [address] IG% 0.100 Normal 0.0-0.9 [facility] Comment on above: Result Comment: IG% - Immature Granulocytes (promyelocytes, myelocytes and metamyelocytes) > 1% indicates that a LEFT SHIFT is Present. Performed By: #### L 100.0100, L500.3400, L500.4050, L700.6800 #### [facility] [address] [place], [address] Lymphocytes/100 WBC (Bld) 39.5 % Normal 19-41 [facility] Comment on above: Performed By: #### L 100.0100, L500.3400, L500.4050, L700.6800 #### [facility] [address] [place], [address] MCH (RBC) [Entitic mass] 33.6 pg High 27.0-32.0 [facility] Comment on above: Performed By: #### L 100.0100, L500.3400, L500.4050, L700.6800 #### [facility] [address] [place], [address] MCHC (RBC) [Mass/Vol] 35.4 g/dL Normal 32-36 [facility] Comment on above: Performed By: #### L 100.0100, L500.3400, L500.4050, L700.6800 #### [facility] [address] [place], [address] MCV (RBC) [Entitic vol] 95.0 fL Normal 81-99 [facility] Comment on above: Performed By: #### L 100.0100, L500.3400, L500.4050, L700.6800 #### [facility] [address] [place], [address] Monocytes/100 WBC (Bld) 7.8 % Normal 0-10 [facility] Comment on above: Performed By: #### L 100.0100, L500.3400, L500.4050, L700.6800 #### [facility] [address] [place], [address] Neutrophils/100 WBC (Bld) 50.0 % Normal 47-70 [facility] Comment on above: Performed By: #### L 100.0100, L500.3400, L500.4050, L700.6800 #### [facility] [address] [place], [address] Nucleated RBC (Bld) [#/Vol] 0 10*3/uL Normal 0-5 [facility] Comment on above: Performed By: #### L 100.0100, L500.3400, L500.4050, L700.6800 #### [facility] [address] [place], [address] Platelet mean volume (Bld) [Entitic vol] 11.3 fL Normal 6.2-12.0 [facility] Comment on above: Performed By: #### L 100.0100, L500.3400, L500.4050, L700.6800 #### [facility] [address] [place], [address] Platelets (Bld) [#/Vol] 201 10*3/uL Normal 150-450 [facility] Comment on above: Performed By: #### L 100.0100, L500.3400, L500.4050, L700.6800 #### [facility] [address] [place], [address] RBC (Bld) [#/Vol] 4.22 10*6/uL Normal 4.2-5.4 [facility] Comment on above: Performed By: #### L 100.0100, L500.3400, L500.4050, L700.6800 #### [facility] [address] [place], [address] RDW SD 41.1 fl Normal 35.1-43.9 [facility] Comment on above: Performed By: #### L 100.0100, L500.3400, L500.4050, L700.6800 #### [facility] [address] [place], [address] WBC (Bld) [#/Vol] 6.9 10*3/uL Normal 4.4-11.0 [facility] Comment on above: Performed By: #### L 100.0100, L500.3400, L500.4050, L700.6800 #### [facility] [address] [place], [address] Determination of erythrocyte mean corpuscular volume (MCV)on 03-19-2022 MCV (RBC) [Entitic vol] 95.0 fL 81-99 [facility] Work Phone: Direct bilirubinon 2 Bilirubin.direct [Mass/Vol] 0.11 mg/dL 0.00-0.30 [facility] Work Phone: Emergency Department Summary on 03-19-2022 Emergency Department Summary [facility] Medical Records Department [address] [place] [address] Emergency Department Summary 03/19/22 MR#: [id number] Acct: [id number] Name: DARIUS CHRISTIANSON Rep #: [id number] : 1985 36 From: Eric Javier PCP: Dr. Derek Mcduffie MD Status:DEP ER Location: ED HPI HPI - GI History of Present Illness Chief Complaint: Abd Pain Informant: patient Narrative Narrative: Progressive right sided right lower abdominal pain since yesterday evening. No vomiting or diarrhea. Normal bowel movement. No fevers. No urinary symptoms. History of tubal ligation along with Mirena placement. Reports to me during discussion she had a colonoscopy at [place] 8 months ago incomplete bowel prep, however had polypectomy had concerns for cancerous findings. She did not follow-up with this. There is cancer runs in the family. Allergies tramadol have as tolerated morphine in the past. No urinary symptoms. PFSH PFS Medical History Anxiety Cancer COPD (chronic obstructive pulmonary disease) Drug abuse in remission Home Medications hydrocortisone 1 %-pramoxine 1 % rectal foam (Proctofoam HC) 1 applic AL BID 10 days #10 grams 01/03/22 [Rx Last Taken Unknown] polyethylene glycol 3350 17 gram/dose oral powder (Miralax) 17 g PO BID #238 grams 03/20/22 [Rx Last Taken Unknown] Allergy/AdvReac Type Severity Reaction Status Date / Time tramadol Allergy Hives Verified 01/03/22 21:18 SLO-FE Allergy Unknown Hives Uncoded 03/21/20 17:59 Social History Smoking Status: Current every day smoker tobacco type: cigarettes ROS ROS ED Constitutional Constitutional ED: Denies chills, fever(s) or sweats Eyes Eyes: Denies change in vision ENT ENT ED: Denies dysphagia or sore throat Cardiovascular Cardiovascular: Denies chest pain, leg edema, palpitations or racing heartbeat Respiratory/Chest Respiratory/Chest: Denies cough, dyspnea or dyspnea on exertion Gastrointestinal Gastrointestinal: Reports abdominal pain; Denies diarrhea, nausea or vomiting Genitourinary Genitourinary ED: Denies dysuria, hematuria or urinary frequency Musculoskeletal Musculoskeletal: Denies back pain, extremity pain or neck pain Integumentary Denies rash or wounds Neurologic Neurologic: Denies headache(s), paresthesias or weakness EXAM Physical Exam Const Vital Signs: 03/19/22 21:10 03/19/22 21:12 Temperature 96.8 F L 96.8 F L Temperature Source Temporal Temporal Pulse Rate 83 83 Respiratory Rate 16 16 Blood Pressure 120/81 H 120/81 H Blood Pressure Mean 94 94 Pulse Ox 100 100 Oxygen Delivery Method Room Air Room Air Positive well nourished and well developed General Appearance ED: well developed and NAD HEENT Reports moist mucous membranes normocephalic and atraumatic Eyes PERRL, EOMs intact bilaterally and conjunctivae normal General Eye ED: Yes normal appearance of both eyes Neck no lymphadenopathy and supple General: Negative for tenderness Chest Wall Chest: Negative for tenderness Resp normal respiratory effort and normal air movement Effort and Inspection: symmetric chest movement; Negative for respiratory distress Cardio regular rate, regular rhythm and no murmurs Peripheral Pulses: pulses 2+ throughout GI normal to inspection, nondistended, normoactive bowel sounds GI Narrative: Negative Fletcher's tender palpation right lower pain in lower quadrants and side region. There is no rash. Palpation: Negative for guarding or rebound tenderness present Back/Spine no CVA tenderness and no thoracic nor lumbar tenderness Extremity normal to inspection General Extremety ED: Negative for edema or tenderness General Extremity: Negative for edema Neuro oriented x3 and no sensory deficits noted Sensorium / Orientation: awake and alert Skin no rashes or lesions noted and no wounds MDM MDM MDM Narrative Medical decision making narrative: Patient tender right lower quadrant. IV established labs were drawn. Hemoglobin 14.2. White count 6.9. Creatinine 0.75 so the of 140 potassium 2.9. Normal liver enzymes. hCG negative. With her reported potential abnormal colonoscopy, contrast CT scan obtained for clear evaluation. Her appendix was normal. Noted a 2 cm right lobe liver lesion. Condition constipation noted. Discussed findings with the patient. She does not recall when her last bowel movement is not normal. I discussed liver lesion and importance for her to follow-up with her PCP for outpatient evaluation and further testing. Also call and follow-up with her GI for her abnormal colonoscopy or her PCP to coordinate care. Discussed return precautions. She is placed on MiraLAX for her constipation. All her questions were answered. La (more content not included)... Normal [facility] Hematocrit Auto (Bld) [Volum e fraction]on 03-19-2022 Hematocrit (Bld) [Volume fraction] 40.1 % 37-47 [facility] Work Phone: [phone] Laboratory - Chemistry and C hemistry - challengeon 03-19-2022 ALP [Catalytic activity/Vol] 82 U/L 45-117 [facility] Work Phone: [phone] ALT [Catalytic activity/Vol] 18 U/L 13-56 [facility] Work Phone: [phone] CO2 [Moles/Vol] 29.0 mmol/L 21.0-32.0 [facility] Work Phone: [phone] Globulin (S) [Mass/Vol] 4.5 g/dL 2.2-4.2 [facility] Work Phone: [phone] Urea nitrogen/Creatinine [Mass ratio] 17.3 mg/mg 10-20 [facility] Work Phone: [phone] Laboratory - Hematology and Cell countson 03-19-2022 Erythrocyte distribution width (RBC) [Entitic vol] 41.1 fL 35.1-43.9 [facility] Work Phone: [phone] Erythrocyte distribution width (RBC) [Ratio] 11.9 % 11.6-14.6 [facility] Work Phone: [phone] Immature granulocytes/100 WBC (Bld) 0.100 % 0.0-0.9 [facility] Work Phone: [phone] Comment on above: IG% - Immature Granu locytes (promyelocytes, myelocytes and metamyelocytes) > 1% indicates that a LEFT SHIFT is Present. MCH (RBC) [Entitic mass] 33.6 pg 27.0-32.0 [facility] Work Phone: [phone] Nucleated RBC/100 WBC (Bld) [Ratio] 0 % 0-5 [facility] Work Phone: [phone] MCHC Auto (RBC) [Mass/Vol]on 03-19-2022 MCHC (RBC) [Mass/Vol] 35.4 g/dL 32-36 [facility] Work Phone: [phone] Panel Informationon 03-19 Estimated Creatinine Clearance Calc 103.60 ml/min [facility] Work Phone: Estimated GFR (MDRD) Amer 111 mL/min >60 [facility] Work Phone: Comment on above: GFR Calc Estimated GFR (MDRD) Non-Af Amer 92 mL/min >60 [facility] Work Phone: Comment on above: Non- GFR Calc Platelets bldon 03-19-2022 Platelets (Bld) [#/Vol] 201 10*3/uL 150-450 [facility] Work Phone: Serum or plasma albumin toña urement (mass/volume)on 03-19-2022 Albumin [Mass/Vol] 4.0 g/dL 3.2-5.0 [facility] Work Phone: Serum or plasma albumin/glob ulin mass ratioon 03-19-2022 Albumin/Globulin [Mass ratio] 0.9 {ratio} 0.9-2.4 [facility] Work Phone: Serum or plasma calcium toña urement (mass/volume)on 03-19-2022 Calcium [Mass/Vol] 9.4 mg/dL 8.5-10.1 [facility] Work Phone: Serum or plasma creatinine m easurement (mass/volume)on 03-19-2022 Creatinine [Mass/Vol] 0.75 mg/dL 0.55-1.02 [facility] Work Phone: Comment on above: The validity of the calculated GFR & GFRAA in patients over 70 years has not been determined. Clinical correlation is essential. Serum or plasma urea nitroge n measurement (mass/volume)on 03-19-2022 Urea nitrogen [Mass/Vol] 13 mg/dL 7-18 [facility] Work Phone: Thin prep Papanicolaou smear with manual screeningon 03-19-2022 Thin prep Papanicolaou smear with manual screening 15 U/L 15-37 [facility] Work Phone: [phone] Thin prep Papanicolaou smear with manual screening 5 5-15 [facility] Work Phone: Emergency Department Summary on 01-04-2022 Emergency Department Summary [facility] Medical Records Department [address]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 07-01-2022 End: 07-01-2022 Patient encounter procedure [facility] Comment on above: Pain in both lower e xtremities (Primary Dx); Acute bilateral low back pain, unspecified whether sciatica present; Paresthesia Start: 05-13-2022 Refill Justa NEGRETE RN.LICENSED VETERINARY TECHNICIAN Work Phone: OB/Gynecology Comment on above: Refill Request Start: 04-29-2022 ambulatory [facility] Facility:[facility] Start: 04-19-2022 Telephone encounter Derek Mcduffie MD [facility] Comment on above: Patient Request Start: 04-19-2022 End: 04-19-2022 Subsequent hospital visit by physician Mri [facility] (I-Stat/1.5t) Work Phone: Radiology Comment on above: Liver lesion [K76.9] Start: 03-26-2022 Telephone encounter Zoie cooley APRN.CNP Work Phone: [facility] Comment on above: Results Start: 03-26-2022 End: 03-26-2022 Subsequent hospital visit by physician [facility] Work Phone: Radiology Comment on above: Liver lesion [K76.9] Start: 03-23-2022 End: 03-23-2022 Office outpatient visit 25 minutes Zoie Parada APRN.FIOR Work Phone: [facility] Comment on above: Generalized abdomina l pain (Primary Dx); Liver lesion; Encounter for immunization Start: 03-19-2022 End: 03-20-2022 Emergency department patient visit Eric Salcido Facility:[facility] Start: 03-19-2022 End: 03-20-2022 Emergency department patient visit [facility] Start: 01-03-2022 End: 01-04-2022 Emergency department patient visit Gunner Sidhu Facility:[facility] Start: 01-03-2022 End: 01-03-2022 Emergency department patient visit [facility] Start: 09-17-2021 Telephone encounter Missy Leal APRN.FIOR Work Phone: [facility] Comment on above: Results Start: 09-16-2021 End: 09-16-2021 Patient encounter procedure Shanelle Wright PA-C Work Phone: [facility] Comment on above: Viral URI (Primary D x) Start: 07-02-2020 End: 07-02-2020 Patient encounter procedure [facility] Start: 04-16-2019 End: 04-16-2019 [facility] Start: 03-27-2018 End: 03-27-2018 Emergency department patient visit CHERELLE RUBIO Facility:[facility] Start: 02-16-2018 Patient encounter Mirza Lewis Facility:[id number] Start: 09-16-2017 End: 09-16-2017 Emergency department patient visit DEVIN BECKETT Facility:[facility] Procedures Date Procedure Procedure Detail Performing Clinician Start: 02-08-2025 Radiologic exam ches t 2 views Rony Ford BUYER AGENT.LICENSED VETERINARY TECHNICIAN Work Phone: Start: 07-03-2024 Urinalysis OLIVIER Salgado Comment on above: Result Comment: URIN ALYSIS Performed By: #### 2 [id number] #### [facility],[address] [place] [address] Start: 07-01-2022 Radex spine lumbosac ral 2/3 views Derek Mcduffie MD Work Phone: Start: 04-19-2022 Mri abdomen w/o & w/ contrast material Zoie Parada APRN.LICENSED VETERINARY TECHNICIAN Work Phone: Start: 03-26-2022 Us abdominal real ti me w/image limited Zoie Parada APRN.LICENSED VETERINARY TECHNICIAN Work Phone: Start: 03-23-2022 INFLUENZA VACCINE QUADRIVALENT 6 MO - 64 YRS IM Zoie Parada BUYER AGENT.LICENSED VETERINARY TECHNICIAN Work Phone: Start: 03-19-2022 Computed tomography of abdomen and pelvis with contrast Start: 08-30-2016 Adult depression scr eening assessment Shanelle Wright PA-C Work Phone: Laparoscopic sterilization C RJ MURPHY DO Loop electrosurgical excision procedure MARIBEL MURPHY DO Plan of Treatment Date Care Activity Detail Author Start: 09-08-2028 Screening for malign ant neoplasm of cervix [facility] Start: 01-28-2025 Influenza vaccination Influenza Vacc ine (#1) [facility] Start: 09-08-2024 Screening for malign ant neoplasm of cervix Cervical Cancer Screening [facility] Start: 2024 Screening for malign ant neoplasm of breast Mammogram Screening [facility] Start: 01-29-2024 Covid-19 Vaccine ( season) Covid-19 Vaccine (1 - ) [facility] Start: 01-29-2024 Influenza vaccination [facility] Start: 10-06-2023 End: 10-06-2023 Patient encounter procedure 10/06/2023 11:00 AM EDT Office Visit OB/Gynecology [address] [place] [address] Emma Cho MD [address] [place] [id number] colposcopy OB/Gynecology Comment on above: colposcopy Start: 05-30-2023 Behavioral Health Screening Behavioral Health Screening [facility] Start: 01-28-2023 Covid-19 Vaccine () Covid-19 Vaccine () [facility] Start: 01-28-2023 Influenza vaccination Influenza Vacc ine (#1) [facility] Start: 07-01-2022 End: 08-31-2022 Basic metabolic 2000 panel - Serum or Plasma [facility] Work Phone: Comment on above: Expected: 07/01/2022 , Expires: 08/31/2022 Start: 07-01-2022 End: 08-31-2022 Cobalamin (Vitamin B12) [Mass/volume] in Serum or Plasma [facility] Work Phone: Comment on above: Expected: 07/01/2022 , Expires: 08/31/2022 Start: 07-01-2022 End: 08-31-2022 Erythrocyte sedimentation rate [facility] Work Phone: Comment on above: Expected: 07/01/2022 , Expires: 08/31/2022 Start: 07-01-2022 End: 08-31-2022 Folate [Mass/volume] in Serum or Plasma [facility] Work Phone: Comment on above: Expected: 07/01/2022 , Expires: 08/31/2022 Start: 07-01-2022 End: 08-31-2022 PROTEIN ELECTROPHORESIS SERUM W/INTERP [facility] Work Phone: Comment on above: Expected: 07/01/2022 , Expires: 08/31/2022 Start: 05-30-2022 DEPRESSION ASSESSMENT DEPRESSION ASS ESSMENT [facility] Start: 01-28-2022 Influenza vaccination INFLUENZA (Sea son Ended) [facility] Start: 09-16-2021 End: 09-30-2021 Influenza virus A and B RNA and SARS-CoV-2 (COVID-19) N gene panel - Respiratory specimen by JR with probe detection [facility] Work Phone: Comment on above: Expected: 09/16/2021 , Expires: 09/30/2021 Start: 05-30-2021 DEPRESSION ASSESSMENT DEPRESSION ASS ESSMENT [facility] Start: 04-28-2021 HPV TESTING HPV TESTING [facility] Start: 04-28-2021 PAP TESTING PAP TESTING [facility] Start: 04-28-2021 Screening for malign ant neoplasm of cervix [facility] Start: 08-30-2017 Adult depression screening assessment DEPRESSION SCREENING [facility] Start: 2011 HPV Vaccine (1 - 3-d ose SCDM series) HPV Vaccine (1 - 3-dose SCDM series) [facility] Start: 2003 Hepatitis B Vaccine (1 of 3 - 19+ 3-dose series) Hepatitis B Vaccine (1 of 3 - 19+ 3-dose series) [facility] Start: 2003 ONE PNEUMOVAX PRIOR TO AGE 65 ONE PNEUMOVAX PRIOR TO AGE 65 [facility] Start: 2003 Pneumococcal vaccination Pneum ococcal Vaccine (1 of 2 - PCV) [facility] Start: 2003 Urine microalbumin profile [facility] Start: 2002 Anxiety Screening Anxiety Screening [facility] Start: 2002 Colonoscopy COLONOSCOPY [facility] Start: 2002 COLORECTAL CANCER SCREENING COLORECTAL CANCER SCREENING [facility] Start: 2002 Depression Screening Depression Scre ening [facility] Start: 2002 Screening for malign ant neoplasm of colon [facility] Start: 1990 PNEUMOCOCCAL (1 - PCV) PNEUMOCOCCAL (1 - PCV) [facility] Start: 1990 Pneumococcal vaccination [facility] Start: 1989 COVID-19 VACCINE (1) COVID-19 VACCIN E (1) [facility] Start: 1984 COVID-19 VACCINE (#1) COVID-19 VACCI NE (#1) [facility] Start: 1984 HEPATITIS B (1 of 3 - 3-dose series) HEPATITIS B (1 of 3 - 3-dose series) [facility] Start: 1984 Hepatitis B Vaccine (1 of 3 - 3-dose series) Hepatitis B Vaccine (1 of 3 - 3-dose series) [facility] COLPOSCOPY COLPOSCOPY Proce dures Routine ASCUS with positive high risk HPV cervical Ordered: 09/27/2023 [facility] Work Phone: Comment on above: Ordered: 09/27/2023 COLPOSCOPY COLPOSCOPY Proce dures Routine ASCUS with positive high risk HPV cervical Ordered: 10/20/2023 [facility] Work Phone: Comment on above: Ordered: 10/20/2023 End: 09-06-2025 DBT Breast - bilateral screening CARLA SCREENING W [facility] Radiology Routine Encounter for screening mammogram for breast cancer 1 Occurrences starting 08/07/2024 until 09/06/2025 [facility] Work Phone: Comment on above: 1 Occurrences starti ng 08/07/2024 until 09/06/2025 End: 04-25-2023 Mri abdomen w/o & w/contrast material MRI LIVER WO/W IVCON Radiology Routine Liver lesion 1 Occurrences starting 03/26/2022 until 04/25/2023 [facility] Work Phone: Comment on above: 1 Occurrences starti ng 03/26/2022 until 04/25/2023 PAP TEST PAP TEST Lab [facility] Encounter for screening for malignant neoplasm of cervix Special screening examination for human papillomavirus (HPV) 09/09/2023 12:22 PM EDT [facility] Work Phone: Patient Education [facility] Work Phone: Patient referral [facility] Work Phone: End: 07-31-2023 Radex spine lumbosacral 2/3 views XR LUMBAR GENERAL 3V AP/LAT/L5-S1 Radiology Routine Pain in both lower extremities Acute bilateral low back pain, unspecified whether sciatica present 1 Occurrences starting 07/01/2022 until 07/31/2023 [facility] Work Phone: Comment on above: 1 Occurrences starti ng 07/01/2022 until 07/31/2023 Radex spine lumbosac ral 2/3 views XR LUMBAR GENERAL 3V AP/LAT/L5-S1 Radiology Routine Pain in both lower extremities Acute bilateral low back pain, unspecified whether sciatica present 07/01/2022 11:12 AM EST [facility] Work Phone: SURGICAL PATHOLOGY SURGICAL PATH OLOGY Lab Routine ASCUS with positive high risk HPV cervical 10/20/2023 4:06 PM EDT [facility] End: 04-22-2023 Us abdominal real time w/image limited US ABD RT UPPER QUADRANT Radiology Routine Liver lesion 1 Occurrences starting 03/23/2022 until 04/22/2023 [facility] Work Phone: Comment on above: 1 Occurrences starti ng 03/23/2022 until 04/22/2023 End: 07-01-2023 US LEG VEIN DVT [facility] US LEG VEIN DVT [facility] Vascular Lab STAT Pain in both lower extremities 1 Occurrences starting 07/01/2022 until 07/01/2023 [facility] Work Phone: Comment on above: 1 Occurrences starti ng 07/01/2022 until 07/01/2023 [facility] Immunizations Immunization Date Immunization Notes Care Provider Zaid otero 03-23-2022 influenza, injectabl e, quadrivalent, contains preservative Zoie Parada [employer] Work Phone: [facility] 03-23-2022 influenza virus vaccine, unspecified formulation Mri (I-Stat/1.5t) Work Phone: [facility] 04-09-2010 influenza virus vaccine, unspecified formulation Shanelle Wright PA-C Work Phone: [facility] Work Phone: Payers Date Payer Category Payer Private Health Insurance [id number] 2023 Unknown [id number] 2022 Unknown [id number] 2018 Medicaid [facility] [id number] 2018-Present [phone] [address] [place] [address] Medicaid [id number] 2018 Medicaid [id number] 2018 Self-pay 2017 Unknown [id number] 1984 Unknown [id number] 627 1984 Unknown [id number] 627 1984 Unknown [id number] 651 1984 Unknown [id number] 651 1984 Unknown [id number] 651 1984 Unknown [id number] 651 1984 Unknown [id number] 627 Unknown [id number] 462 Unknown [id number] 462 Unknown [id number] 462 Unknown [id number] 462 Unknown [id number] 462 Social History Date Type Detail Facility Start: 03-23-2022 End: 02-08-2025 Tobacco smoking status NHIS Smokes tobacco daily [facility] History of tobacco use Cigarette Smoker [facility] Work Phone: Start: 09-16-2021 End: 02-08-2025 Alcohol intake Current non-drinker of alcohol (finding) [facility] Start: 1985 Sex Assigned At Not on file [facility] Start: 01-03-2022 End: 03-19-2022 Tobacco smoking status IDIS Unknown if ever smoked [facility] Work Phone: Start: 10-26-2018 Occasional [facility] Work Phone: Start: 03-21-2020 None [facility] Work Phone: Start: 03-21-2014 Spouse/ Signif icant Other [facility] Work Phone: Start: 03-21-2020 Cigarettes [facility] Work Phone: Start: 1985 Sex Assigned At Female W [facility] Work Phone: Start: 03-23-2022 End: 10-21-2022 Cigarettes smoked current (pack per day) - Reported 0.5 [facility] Start: 03-23-2022 End: 02-08-2025 Tobacco use and exposure Smokeless tobacco non-user [facility] Start: 03-23-2022 End: 10-21-2022 Tobacco use panel [facility] Start: 04-30-2012 End: 03-10-2025 National Score (1-100), lower number is lower risk 56 [facility] Tobacco smoking status [facility] Start: 01-11-2016 Sex Female (finding) [facility] Functional Status Date Assessment Result Facility 03-10-2025 [facility] 03-10-2025 Functional Status Ambulation in [place], Ambulation in Room [facility] 12-27-2014 Are you deaf, or do you have serious difficulty hearing No 12/27/2014 4:22 PM EDT Loretta Shelli [place] No [facility] 12-27-2014 Are you blind, or do you have serious difficulty seeing, even when wearing glasses No 12/27/2014 4:22 PM EDT Loretta Shelli [place] No [facility] 12-27-2014 Do you have serious difficulty walking or climbing stairs No 12/27/2014 4:22 PM EDT Loretta CmaShelli No [facility] 12-27-2014 Do you have difficul ty dressing or bathing No 12/27/2014 4:22 PM EDT Loretta CmaShelli No [facility] 12-27-2014 Because of a physica l, mental, or emotional condition, do you have difficulty doing errands alone such as visiting a physician's office or shopping No 12/27/2014 4:22 PM EDT Loretta CmaShelli No [facility] Mental Status Date Assessment Result Facility 03-10-2025 Mental Status Orientation Oriented x [address] [place] [address] 03-10-[address] [facility] 12-27-2014 Because of a physica l, mental, or emotional condition, do you have serious difficulty concentrating, remembering, or making decisions No 12/27/2014 4:22 PM EDT Loretta AdamsShelli No [facility] Clinical Notes 12-19-2013 to 04-09-2025 Note Date & Type Note Facility 04-09-2025 Note HNO ID: [id number] Author: OSIRIS FLANNERY RDMS Service: ? Author Type: Shop Repairer Type: Progress Notes Filed: 04/09/2025 11:17 Note Text: Radiology Service Progress Note PATIENT NAME: Darius Garcia DATE OF SERVICE: April 09, 2025 TIME: 11:17 AM PATIENT IDENTITY VERIFICATION COMPLETED USING TWO (2) IDENTIFIERS: Name and Date of confirmed by patient verbally. FALL SCREENING: Has the patient had 2 falls in the last year or 1 fall with injury or currently using an Ambulatory Assistive Device (Walker, Cane, Wheelchair, Crutches, etc.)? No PATIENT GENDER DATA: Assigned female at . status: : No status: NO. PATIENT RELEVANT IMPLANT DATA REVIEWED: Not Applicable PATIENT PRESENTS WITH AN IMPLANTABLE OR ATTACHED TRANSMISSION INSPECTOR: No RADIOLOGY DEPARTMENT: Ultrasound PERIPHERAL IV DATA: Not applicable SIGNED BY: Osiris Flannery RDMS April 09, 2025 11:[address] [facility] 04-08-2025 Note HNO ID: [id number] Author: ZOIE PARADA APRN.LICENSED VETERINARY TECHNICIAN Service: ? Author Type: Nurse Practitioner Type: Progress Notes Filed: 04/08/2025 23:25 Note Text: This is a 39 year old female who presents today with: The patient is a 39-year-old female here for annual. HISTORY OF PRESENT ILLNESS: Darius Garcia is a 39-year-old female presenting for annual. Foot Pain: - Daily foot pain described as walking on eggshells. - Calf tightness described as feeling like they are going to erupt. - Pain worsens throughout the day. - Previous recommendation for physical therapy not pursued due to time constraints. Noted to have low folate at that time. Endorses hx of anemia in . Ear Pain: - Left ear pain x2 days, worsening. Has been "snotty." Arm rash - Suspects work-related cause due to wearing arm guards and gloves. Bilateral wrists. + itch. Recent ER visit for abdominal pain. Ct showed epiploic appendagitis, gall stones, and liver lesions (suspect hemangiomas). Tubular adenoma. Due for colonoscopy. PAST MEDICAL HISTORY: PAST MEDICAL HISTORY Diagnosis Date Abnormal glandular Papanicolaou smear of cervix Abn. 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 Bilateral wrist. levonorgestrel (MIRENA) 20 mcg/24 hr (5 years) IUD 1 Each by INTRAUTERINE route as directed. put in in the OR No current facility-administered medications for this visit. FAMILY HISTORY Problem Relation Age of Onset Asthma Mother COPD Mother Lung Cancer Mother No Known Problems Brother No Known Problems Brother No Known Problems Brother Heart Maternal Grandmother Colon Cancer Maternal Grandfather No Known Problems Paternal Grandmother No Known Problems Daughter No Known Problems Daughter No Known Problems Son No Known Problems Son No Known Problems Son SOCIAL HISTORY[1] REVIEW OF SYSTEMS Constitutional: (-) unintentional weight loss, (-) weakness, (-) fatigue Head: (-) headaches Eyes: (-) vision change Ears/Nose/Mouth/Throat: (+) left ear pain, (-) hearing change Neck: (-) neck masses Cardiovascular: (+) palpitations Respiratory: (-) dyspnea Gastrointestinal: (+) constipation, (-) heartburn, (-) blood in stool Genitourinary: (+) urinary frequency Musculoskeletal: (+) foot pain, (+) calf tightness, (+) rib pain, (+) thigh pain, (+) back pain Skin: (+) rash, (+) pruritus, (+) subcutaneous nodules Neurological: (+) tremors Psychiatric: (+) anxiety EXAM: BP 100/68 Pulse 80 Resp 16 Wt 73.9 kg (163 lb) LMP 01/27/2017 (Approximate) SpO2 99% BMI 24.78 kg/m? PHYSICAL EXAM: General Appearance: Well appearing, alert, in no acute distress, well-hydrated, well nourished.. Skin: Skin color, texture, turgor normal, no suspicious rashes or lesions. Head: Normocephalic, no masses, lesions, tenderness or abnormalities. Eyes: Anicteric sclera. Pupils are equally round and reactive to light. Extraocular movements are intact. . Ears: External ears normal, canals clear. Normal TMs bilaterally. Oropharynx: Lips, mucosa, and tongue normal, teeth and gums normal, oropharynx normal. Neck: Supple, no adenopathy; thyroid symmetric, normal size, no bruits. Lungs: Lungs clear to auscultation. No wheezing, rhonchi, rales.. Heart: RRR without murmur, gallop, or rubs. No ectopy. Abdomen: Abdomen soft. Mild tenderness across the lower abdomen. Bowel sounds normal. No masses, organomegaly. Extremities: No deformities, edema, skin discoloration, clubbing or cyanosis. Good capillary refill. . Neurologic: Gait normal. ASSESSMENT/PLAN 1. Wellness examination (Z00.00) - Patient has not been seen in several years. - Ordered CBC, CMP, cholesterol panel, folate, iron, and ferritin. - Offered flu, COVID, and pneumonia vaccines; patient declined flu and COVID vaccines, but agreed to pneumonia vaccine. - Tetanus vaccine administered. Health Promotion: - Eat healthy -- go to [employer] to get started - Have a yearly physical - Mammogram yearly after age 40 - Get at least 30 minutes of physical activity daily - Get at least 7 to 8 hours of sleep each night - Reach and maintain a healthy weight - Get help to quit or don't start smoking - Limit alcohol use to one drink or less - Do not use illegal drugs or misuse prescription drugs - Wear a helmet when (more content not included)... [facility] 03-11-2025 Hospital Discharge instructions Patient Education 03/10/2025 23:02:50 What are Gallstones? What are Gallstones? The gallbladder stores bile, a fluid made by the liver. Bile helps digest fats in the foods you eat. Gallstones form when certain substances in the bile crystallize and become solid. In some cases, the stones don t cause any symptoms. In others, they irritate the torres of the gallbladder. More serious problems can occur if stones move into nearby ducts (such as the common bile duct) and cause blockages. This can block the flow of bile and lead to pain, nausea, and infection. Common symptoms Gallbladder problems can cause painful attacks, often after a meal. Some people have only one attack. Others have many. Common symptoms include: Severe, steady pain or aching in the upper right belly (abdomen), back, or right shoulder blade, lasting from 30 minutes to several hours A dull ache beneath the ribs or breastbone Nausea, upset stomach, or vomiting A buildup of too much bile in the blood (jaundice), which causes yellowing of the skin and eyes, dark urine, and itching. Call your healthcare provider right away if this occurs. Risk factors for gallstones You are more at risk for gallstones if you: Are a woman Are obese Have a history of very fast (rapid) weight loss Have certain intestinal diseases, such as Crohn s disease Have certain blood diseases, such as sickle cell anemia Have a family background that includes Andreafski Americans or Peruvian Americans Diagnosis Ultrasound is often used to look at the gallbladder and measure the size and exact location of gallstone. Blood tests are used to measure liver enzymes and bilirubin. Both of these may be high if the gallstones are blocking bile flow or irritating the liver. Treating gallstones If your stones are not causing symptoms, you may choose to delay treatment. But if you ve had one or more painful attacks, your healthcare provider will likely recommend removing your gallbladder. This prevents more stones from forming and causing attacks. It also helps prevent problems, such as stones passing into the ducts and causing infection or pancreatitis. After the gallbladder is removed, your liver will still make bile to aid digestion. If you re Hormone changes during can make bile more likely to form stones. If your gallbladder needs to be removed, your doctor will talk with you about the timing for surgery. In some cases, it can be delayed until after childbirth. In others, you may have surgery during . This helps protect you and your baby s health. [employer]. [address] [place] [address]. All rights reserved. This information is not intended as a substitute for professional medical care. Always follow your healthcare professional's instructions. 03/10/2025 23:02:40 How the Colon Works How the Colon Works The colon (large intestine) is a muscular tube that forms the last part of the digestive tract. It absorbs water and stores food waste. The colon is about 4 to 6 feet long. The rectum is the last 6 inches of the colon. How food moves through the colon Semiliquid food waste from the small intestine enters the colon at the beginning of the colon (cecum). As this waste, called stool, travels through the colon, it loses water and solidifies. Strong muscles keep the stool moving through the colon. The stool is moved toward the last section of the colon (sigmoid colon). From there, it passes into the rectum, where it is stored until it leaves the body through the anus during a bowel movement. [employer]. [address] [place] [address]. All rights reserved. This information is not intended as a substitute for professional medical care. Always follow your healthcare professional's instructions. Follow Up Care 03/10/2025 20:53:37 With:ARIAS FERRERA MD, Surgery Address: [address] [place] [phone] When:2-4 days With:DEREK MCDUFFIE MD Address: [address] [address] [phone] When:2-4 days [facility] 03-10-2025 Emergency department Discharge summary Discharge Instructions Thank you for allowing [facility] to assist you with your healthcare needs. The following is important discharge information regarding your hospital visit. Diagnosis from Today's Visit Cholelithiasis Epiploic appendagitis Hemangioma of liver What to Do Next Instructions from Your Care Team No qualifying data available. Post Acute Orders No qualifying data available. You Need to Schedule the Following Appointments Follow Up with ARIAS FERRERA MD, Surgery When:Within 2-4 days Where:[address] [place] [id number]- Follow Up with DEREK MCDUFFIE MD When:Within 2-4 days Where:[address] [address] [phone] Allergies ferrous sulfate Hives Medications Please ask your primary doctor or pharmacist before taking any other medication not listed, including over the counter drugs, herbal medications, vitamins and or supplements as they may interact with your home medications. What How Much When Instructions Last Dose New ondansetron (ondansetron 4 mg oral tablet, disintegrating) 1 tab(s) by mouth Every 6 hours as needed for Nausea/Vomiting Duration: 4 Days Printed Prescription Unchanged acyclovir (acyclovir 400 mg oral tablet) 1 tab(s) by mouth 5 times a day Please take this list to your next doctor s visit. Bring all medications you take, including over the counter medications, herbals and other supplements with you to your doctor s visit. Patients and families are reminded to discard old lists and to update any records with all medication providers or retail pharmacies. Education Materials What are Gallstones? The gallbladder stores bile, a fluid made by the liver. Bile helps digest fats in the foods you eat. Gallstones form when certain substances in the bile crystallize and become solid. In some cases, the stones don t cause any symptoms. In others, they irritate the torres of the gallbladder. More serious problems can occur if stones move into nearby ducts (such as the common bile duct) and cause blockages. This can block the flow of bile and lead to pain, nausea, and infection. Common symptoms Gallbladder problems can cause painful attacks, often after a meal. Some people have only one attack. Others have many. Common symptoms include: Severe, steady pain or aching in the upper right belly (abdomen), back, or right shoulder blade, lasting from 30 minutes to several hours A dull ache beneath the ribs or breastbone Nausea, upset stomach, or vomiting A buildup of too much bile in the blood (jaundice), which causes yellowing of the skin and eyes, dark urine, and itching. Call your healthcare provider right away if this occurs. Risk factors for gallstones You are more at risk for gallstones if you: Are a woman Are obese Have a history of very fast (rapid) weight loss Have certain intestinal diseases, such as Crohn s disease Have certain blood diseases, such as sickle cell anemia Have a family background that includes Andreafski Americans or Peruvian Americans Diagnosis Ultrasound is often used to look at the gallbladder and measure the size and exact location of gallstone. Blood tests are used to measure liver enzymes and bilirubin. Both of these may be high if the gallstones are blocking bile flow or irritating the liver. Treating gallstones If your stones are not causing symptoms, you may choose to delay treatment. But if you ve had one or more painful attacks, your healthcare provider will likely recommend removing your gallbladder. This prevents more stones from forming and causing attacks. It also helps prevent problems, such as stones passing into the ducts and causing infection or pancreatitis. After the gallbladder is removed, your liver will still make bile to aid digestion. If you re Hormone changes during can make bile more likely to form stones. If your gallbladder needs to be removed, your doctor will talk with you about the timing for surgery. In some cases, it can be delayed until after childbirth. In others, you may have surgery during . This helps protect you and your baby s health. 1580-9210 [employer]. [address] [place] [address], [place] [address]. All rights reserved. This information is not intended as a substitute for professional medical care. Always follow your healthcare professional's instructions. How the Colon Works The colon (large intestine) is a muscular tube that forms the last part of the digestive tract. It absorbs water and stores food waste. The colon is about 4 to 6 feet long. The rectum is the last 6 inches of the colon. How food moves through the colon Semiliquid food waste from the small intestine enters the colon at the beginning of the colon (cecum). As this waste, called stool, travels through the colon, it loses water and solidifies. Strong muscles keep the stool moving through the colon. The stool is moved toward the last section of the colon (sigmoid colon). From there, it passes into the rectum, where it is stored until it leaves the body through the anus during a bowel movement. 1848-1982 [employer]. [address] [place] [address]. All rights reserved. This information is not intended as a substitute for professional medical care. Always follow your healthcare professional's instructions. Additional Information VACCINATE! IT SAVES LIVES! Members of the community who have not yet received the COVID-19 vaccine and would like to receive it can visit one of [facility] vaccine clinics. There are many vaccine clinic locations within the [facility]. For locations and available times, please visit [email or web address] [email or web address] It is important to note that some COVID mobile vaccine clinics are held outdoors and may be canceled in rainy or stormy conditions. To learn more about pediatric vaccinations (ages 5-11), we invite you to visit the [facility] webpage. [email or web address] [email or web address] To learn more about the COVID-19 vaccine, we invite you to visit the CDC website for a list of frequently asked questions. https://www.cdc.gov/coronavirus/ 2019-ncov/vaccines/faq.html [facility] Patient Portal Access Instructions: Stay connected with your healthcare team and access your personal medical information anytime with the [facility] Patient Portal. If you would like a full copy of your medical records please contact the [facility] Medical Records Department [place] through Tuesday between 8a.m. and 4:30p.m. Please follow the directions below to access the portal: 1.Access the email account you provided upon registration to the hospital.2.Look for an invitation email from [facility].3.Open the email and access the invitation link: Accept Invitation to [facility]4.Fill in the required pyle to create your account. To access your account, visit [email or web address] or scan the [employer] code above. Click the blue button labeled "Access Patient Portal" and then log in with the username and password that you created in the steps above. You can then view a summary of results, a summary of your visits, and the ability to download your summaries to your computer or send the information securely to a physician. Remember that your healthcare information is confidential, so carefully consider who you will allow to register on the [facility] Patient Portal for access to your information. You can also access the [facility] Patient Portal on the [employer]. Simply click on "Health Records" under "Health Data" and then click on the [facility] logo. HOW TO SAFELY DISPOSE OF PRESCRIPTION MEDICATIONS Please use one of the following methods to safely dispose of your unused medications. 1.Use a drug disposal kit: the drug disposal pouch allows you to safely discard your old and unused drugs. Ask your nurse to give you one when you are discharged.2.Visit a local take-back location: Many local pharmacies and police departments have programs that collect old and unwanted prescription drugs. Call your local pharmacy or go to http://bit.[employer]/4L8So1m to find one close to you.3.Make use of household items: Use cat litter or old coffee grounds to dispose medications if other options are not available. Mix your drugs with these household products, seal them in an airtight container and throw it into the garbage. Call [facility]: [phone] to be sure your drugs can be disposed of in this way. Some medicines may require a different approach.4.Never flush your medications down the toilet. IF YOU HAVE BEEN PRESCRIBED AN OPIOIDS FOR PAIN If you have been prescribed an opioid (such as hydrocodone, oxycodone or morphine), it is critical to understand the possible side effects and risks of opioid pain medications. Even when taken as directed, opioids can have several side effects including: Tolerance, meaning you might need to take more of a medication for the same pain relief. Nausea, vomiting and/or constipation. Sleepiness, dizziness, dry mouth, confusion, depression or itching. Physical dependence, meaning you have withdrawal symptoms when a medication is stopped ? this can develop within a few days. KNOW YOUR RESPONSIBILITIES It is important to know exactly how much and how often to take the opioid pain medications you are prescribed. Never take opioids in higher amounts or more often than prescribed. Do not combine opioids with alcohol or other drugs that cause drowsiness, such as benzodiazepines, also known as benzos, including diazepam and alprazolam, muscle relaxants or sleep aids. Never sell or share prescription opioids. This is illegal. Store opioids in a secure place and out of reach of others (including children, family, friends and visitors). The last page(s) of this document has been signed and retained as a CHART COPY Signatures Patient Education Materials What are Gallstones? How the Colon Works Medication Leaflets My discharge plan and instructions have been reviewed and explained to me and IRADHA KATHALEEN S understand my current condition and have read and understand these discharge instructions. I have received a written copy of the plan/instructions. If I have questions, I am aware that I should contact my doctor. 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 Multiplanar reformatted images are provided for review. Automated exposure control, iterative reconstruction, and/or weight based adjustment of the mA/kV was utilized to reduce the radiation dose to as low as reasonably achievable. COMPARISON: CT abdomen pelvis 09/16/2017 HISTORY: ORDERING SYSTEM PROVIDED HISTORY: Reason for Exam: Abdominal pain, acute, nonlocalized FINDINGS: Lower Chest: Unremarkable Organs: Hypodense lesions in right hepatic lobe measuring 0.9 cm (301:24) and 1.9 x 2.5 cm (301:17), larger lesion demonstrating peripheral hyperdensity, likely hemangiomas. Spleen, bilateral adrenal glands, pancreas unremarkable. Suspected gallbladder calculi. No evidence of nephrolithiasis or bilateral hydronephrosis. GI/Bowel: No evidence of bowel obstruction. Collapsed appearance of sigmoid colon mild circumferential wall thickening and surrounding stranding is suspected. Noninflamed appendix. Focal fat stranding with central sparing inferior to mid transverse colon (601:20), suspicious for epiploic appendagitis. Pelvis: Urine bladder is unremarkable. Pelvic structures are grossly unremarkable. Intrauterine device. Bilateral tubal closure devices. Peritoneum/Retroperitoneum: No evidence of lymphadenopathy. Atherosclerotic aorta without aneurysm. Bones/Soft Tissues: Mild degenerative changes of the spine. IMPRESSION: 1. Findings suspicious for epiploic appendagitis at mid transverse colon. 2. Mild circumferential wall thickening may relate to mild infectious/inflammatory colitis or under distended sigmoid colon. 3. Hepatic lesions, possibly hemangiomas in the absence of known malignancy, correlate with prior exams if any available. 4. Suspect cholelithiasis. I have personally reviewed the images of this examination and agree with the resident's findings and interpretation. Interpreted by: Kanika Monroy Preliminary Report By: Eben Hoffman Electronically signed By Kanika Monroy Dictated Date: 03/10/2025 9:53:25 PM Prelim Date: 03/10/2025 10:03:42 PM Sign Date: 03/10/2025 10:48:32 PM Ordering Provider: MARIBEL MURPHY RP [facility]09-12-2025 History of Present illness Narrative * Juhi Campos, RT(R) - 02/08/2025 6:40 PM EDT Radiology Service Progress Note PATIENT NAME: Darius Garcia DATE OF SERVICE: February 08, 2025 TIME: 6:39 PM PATIENT IDENTITY VERIFICATION COMPLETED USING TWO (2) IDENTIFIERS: Name and Date of confirmedby patient verbally. FALL SCREENING: Has the patient had 2 falls in the last year or 1 fall with injury or currently using an Ambulatory Assistive Device (Walker, Cane, Wheelchair, Crutches, etc.)? No PATIENT GENDER DATA: Assigned female at . status: : No status:NO. PATIENT RELEVANT IMPLANT DATA REVIEWED: Yes PATIENT PRESENTS WITH AN IMPLANTABLE OR ATTACHED TRANSMISSION INSPECTOR: No RADIOLOGY DEPARTMENT: General X-ray: Exam(s) Completed: Chest X-Ray PERIPHERAL IV DATA: Not applicable SIGNED BY: RT Cheikh(Mimi) February 08, 2025 6:39 PM documented in this [facility]Mer[facility]25 NoteHNO ID: [id number] Author: JUHI CAMPOS RT(Mimi) Service: ? Author Type: Technologist Type: Progress Notes Filed: 02/08/2025 18:46 Note Text: Radiology Service Progress Note PATIENT NAME: Darius Garcia DATE OF SERVICE: February 08, 2025 TIME: 6:39 PM PATIENT IDENTITY VERIFICATION COMPLETED USING TWO (2) IDENTIFIERS: Name and Date of confirmed by patient verbally. FALL SCREENING: Has the patient had 2 falls in the last year or 1 fall with injury or currently using an Ambulatory Assistive Device (Walker, Cane, Wheelchair, Crutches, etc.)? No PATIENT GENDER DATA: Assigned female at . status: : No status: NO. PATIENT RELEVANT IMPLANT DATA REVIEWED: Yes PATIENT PRESENTS WITH AN IMPLANTABLE OR ATTACHED TRANSMISSION INSPECTOR: No RADIOLOGY DEPARTMENT: General X-ray: Exam(s) Completed: Chest X-Ray PERIPHERAL IV DATA: Not applicable SIGNED BY: RT Cheikh(Mimi) February 08, 2025 6:39 [facility]09-12-2025 NoteHNO ID: [id number] Author: RONY FORD APRN.CNP Service: ? Author Type: Nurse Practitioner Type: Progress Notes Filed: 02/08/2025 19:06 Note Text: [facility] Ernie Garcia is a 39 year old female. Patient presents with: Cough: Chest congestion,tightness, pressure, rib pain on bilat side, nasal congestion runny nose x 1 week HPI Patient presents today complaining of 1 week of cough, congestion, rib pain, and runny nose. She denies any recent fevers. Denies any specific known sick exposures. Review of Systems As above Objective BP 92/67 Pulse 78 Temp 37.2 ?C (98.9 ?F) Resp 22 Wt 74 kg (163 lb 2.3 oz) LMP 01/27/2017 (Approximate) SpO2 98% BMI 24.81 kg/m? Physical Exam Vitals and nursing note reviewed. Constitutional: General: She is not in acute distress. Appearance: Normal appearance. She is not ill-appearing. HENT: Head: Normocephalic. Mouth/Throat: Mouth: Mucous membranes are moist. Eyes: Conjunctiva/sclera: Conjunctivae normal. Cardiovascular: Rate and Rhythm: Normal rate and regular rhythm. Pulmonary: Effort: Pulmonary effort is normal. Breath sounds: Normal breath sounds. Comments: Dry cough noted Musculoskeletal: General: Normal range of motion. Cervical back: Normal range of motion. Skin: General: Skin is warm and dry. Neurological: General: No focal deficit present. Mental Status: She is alert. Psychiatric: Mood and Affect: Mood normal. Behavior: Behavior normal. {ASSESSMENT/PLAN: 1. Acute cough - ICD9: 786.2, ICD10: R05.1 -Chest x-ray today showed no acute abnormality. Discussed with patient that symptoms are most likely viral in origin and she may have an ongoing cough for the next 5-10 days. She was given a prescription for Tessalon Perles for symptomatic relief as noted below. As symptoms are viral no antibiotics were prescribed. - XR CHEST 2V FRONTAL/LAT - BENZONATATE 100 MG CAPSULE Rony Ford APRN.LICENSED VETERINARY TECHNICIAN Disposition The patient was discharged. [facility] History of Present illness Narrative* Rony Ford APRN.CNP - 02/08/2025 6:36 PM EDT [facility] Subjective Darius Garcia is a 39 year old female. Patient presents with: Cough: Chest congestion,tightness, pressure, rib pain on bilat side, nasal congestion runny nose x 1 week HPI Patient presents today complaining of 1 week of cough, congestion, rib pain, and runny nose. She denies any recent fevers. Denies any specific known sick exposures. Review of Systems As above Objective BP 92/67 Pulse 78 Temp 37.2 C (98.9 F) Resp 22 Wt 74 kg (163 lb 2.3 oz) LMP 01/27/2017 (Approximate) SpO2 98% BMI 24.81 kg/m Physical Exam Vitals and nursing note reviewed. Constitutional: General: She is not in acute distress. Appearance: Normal appearance. She is not ill-appearing. HENT: Head: Normocephalic. Mouth/Throat: Mouth: Mucous membranes are moist. Eyes: Conjunctiva/sclera: Conjunctivae normal. Cardiovascular: Rate and Rhythm: Normal rate and regular rhythm. Pulmonary: Effort: Pulmonary effort is normal. Breath sounds: Normal breath sounds. Comments: Dry cough noted Musculoskeletal: General: Normal range of motion. Cervical back: Normal range of motion. Skin: General: Skin is warm and dry. Neurological: General: No focal deficit present. Mental Status: She is alert. Psychiatric: Mood and Affect: Mood normal. Behavior: Behavior normal. {ASSESSMENT/PLAN: 1. Acute cough - ICD9: 786.2, ICD10: R05.1 -Chest x-ray today showed no acute abnormality. Discussed with patient that symptoms are most likely viral in origin and she may have an ongoing cough for the next 5-10 days. She was given a prescription for Tessalon Perles for symptomatic relief as noted below. As symptoms are viral no antibioticswere prescribed. - XR CHEST 2V FRONTAL/LAT - BENZONATATE 100 MG CAPSULE Rony Ford APRN.LICENSED VETERINARY TECHNICIAN Disposition The patient was discharged. Procedures documented in this encounterMer[facility]03-11-2025 NotePatient Outreach (FAMPWS) DARIUS CHRISTIANSON Daryl ([id number]) 1985 F CHT Date Time Provider Department 08/07/24 DEREK MCDUFFIE During your visit today, we recorded the following information about you: Allergies As of Date: 08/07/2024 Noted Allergy Reaction SLOW FE (FERROUS SULFATE DRIED) 03/19/2005 2 - Rash Date Reviewed: 10/20/2023 Reviewed by: Emma Cho MD - Fully Assessed Visit Diagnosis:Encounter for screening mammogram for breast cancer [Z12.31] Order(s):CARLA SCREENING W AUGUSTO [[id number]] Order #: [id number] FUTURE Prescriptions as of 09/07/2024 - TRINTELLIX 10 mg tablet Take 10 mg by mouth once daily. - levonorgestrel (MIRENA) 20 mcg/24 hr (5 years) IUD 1 Each by INTRAUTERINE route as directed. put in in the OR Meds Comments as of 12/24/2009: All medications reviewed today/December 24, 2009 Fidelina Peter Rn Problem List As Of Date 08/07/2024 Noted Resolved SUPERVIS OTHER NORMAL PREG [Z34.80] 08/31/2005 04/11/2006 IRREGULAR MENSTRUATION [N92.6] 10/06/2005 04/11/2006 Supervision of other high-risk (V23.89*01/21/2010 12/19/2013 Threatened premature labor, antepartum [O47.00] 01/21/2010 12/19/2013 UTI (lower urinary tract infection) [N39.0] 12/19/2013 08/30/2016 Bipolar I disorder, most recent episode (or cur*08/30/2016 Encounter Status:Closed by RILEY MCCARTNEY on 09/07/24[facility] 07-[facility] NoteDischarge Instructions Discharge Summary [address] [place] [address] [id number] 07/03/2024 Patient: GIBRAN GARCIA Sex: Female : 1985 Age: 39y Thank you for visiting [facility]. You have been evaluated today by Nguyễn Mari D.O. for the following condition(s): Principal Diagnosis Acute urinary tract infection with cystitis. No hematuria. INSTRUCTIONS No strenuous activity. Drink plenty of fluids. (Urine culture is pending. Follow-up with your family doctor for results. Take medication as prescribed.). Warnings: GENERAL WARNINGS: Return or contact your physician immediately if your condition worsens or changes unexpectedly, if not improving as expected, or if other problems arise. Prescription Medications: Bactrim DS 800 mg-160 mg tablet: Take 1 tablet by mouth twice a day for 10 days, dispense 20 tablet. Refills 0. Pharmacy: [facility] [phone] [place] [address]. Follow-up: Follow up with doctor in four days even if well. Call for an appointment. Reason for referral: evaluation and treatment. Summary of care provided to patient. Dr Mcduff[place]akin, [place]. Understanding of the discharge instructions verbalized by patient. 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 [address] [phone] 07/03/2024 Patient: GIBRAN GARCIA Sex: Female : 1985 Age: 39y Thank you for visiting [facility]. You have been evaluated today by Nguyễn Mari D.O. for the following condition(s): Principal Diagnosis Acute urinary tract infection with cystitis. No hematuria. INSTRUCTIONS No strenuous activity. Drink plenty of fluids. (Urine culture is pending. Follow-up with your family doctor for results. Take medication as prescribed.). Warnings: GENERAL WARNINGS: Return or contact your physician immediately if your condition worsens or changes unexpectedly, if not improving as expected, or if other problems arise. Prescription Medications: 2 of 7 Discharge Instructions Bactrim DS 800 mg-160 mg tablet: Take 1 tablet by mouth twice a day for 10 days, dispense 20 tablet. Refills 0. Pharmacy: [facility] [id number] [place] [address]. Follow-up: Follow up with doctor in four days even if well. Call for an appointment. Reason for referral: evaluation and treatment. Summary of care provided to patient. Dr Mcduffie, [place], [place]. Understanding of the discharge instructions verbalized by patient. ADDITIONAL INFORMATION Bladder Infection, Female (Adult) Urine normally doesn't have any germs (bacteria) in it. But bacteria can get into the urinary tractfrom the skin around the rectum. Or they can travel in the blood from other parts of the body. Once they are in your urinary tract, they can cause infection in these areas: The urethra (urethritis) The bladder (cystitis) The kidneys (pyelonephritis) 3 of 7 Discharge Instructions The most common place for an infection is in the bladder. This is called a bladder infection. This is one of the most common infections in women. Most bladder infections are easily treated. They are not serious unlessthe infection spreads to the kidney. The terms bladder infection, UTI, and cystitis are often used to describe the same thing. But they are not always the same. Cystitis is an inflammation of the bladder. The most common cause of cystitis is an infection. Symptoms The infection causes inflammation in the urethra and bladder. This causes many of the symptoms. Themost common symptoms of a bladder infection are: Pain or burning when urinating Having to urinate more often than normal Urgent need to urinate Only a small amount of urine comes out Blood in urine Belly (abdominal) discomfort. This is often in the lower belly above the pubic bone. Cloudy urine Strong- or bad-smelling urine Unable to urinate (urinary retention) Unable to hold urine in (urinary incontinence) Fever Loss of appetite Confusion (in older adults) Causes Bladder infections are not contagious. You can't get one from someone else, from a toilet seat, or from sharing a bath. The most common cause of bladder infections is bacteria from the bowels. The bacteria get onto the skin around the opening of the urethra. From there, they can get into the urine. Then they travel up to the bladder, causing inflammation and infection. This often happens because of: Wiping incorrectly after urinating. Always wi (more content not included)...[facility] [id number] History of Present illness Narrative* Emma Cho MD - 10/20/2023 3:43 PM EDT Darius is a 38 year old who presents today for a colposcopy. The patient's last pap smear was ASCUS with positive HPV from August 2023. Patient has a history of abnormal pap: Yes. The patient has had prior treatment: LEEP. test: n/a - Patient declines UNIVERSAL PROTOCOL / SAFETY CHECKLIST Procedure to be Performed: Colposcopy w/ biopsies Sign In: A Moment of CARE was completed. Personnel directly involved with the procedure wore the appropriate PPE (Personal Protective Equipment). Patient/Surrogate Stated/Verified: PATIENT VERIFIED(optional for EMERGENT procedures): Patient name, Date of , Relevant allergies, and The intended procedure Time Out Communication: Intended patient and procedure match the source documents. Consent documented and matches the intended procedure. Relevant labs, photos, and/or imaging studies have been reviewed. Sign Out: SIGN OUT (optional for EMERGENT procedures): All specimen containers correctly labeled. All instruments, equipment, possible retained foreign bodies accounted for. Post-procedure follow-up management communicated and Plan of Care Visit completed when applicable. PROCEDURE: EXTERNAL GENITALIA: Normal in appearance without lesions VAGINA: Normal in appearance without lesions CERVIX: Speculum placed in vagina and excellent visualization of cervix achieved. Cervix swabbed x 3 with 3% acetic acid solution. Cervix grossly normal. Possible acetowhite changes. BIOPSY: Done at 3:00, 6:00, 9:00, and 12:00 ECC: done HEMOSTASIS: Obtained with silver nitrate Procedure Summary: Patient tolerated procedure well. ASSESSMENT: ASCUS with positive HRHPV in patient with h/o LEEP PLAN: Specimens labeled and sent to Pathology. Will notify patient of results in 1-2 weeks. Post-procedure instructions reviewed and written material given to the patient. If indicated, lesion by colpo is not amenable to office LEEP. Emma Cho MD documented in this encounterMer[facility]-23-[facility]24 Instructions* Patient Instructions* Jovani Freedman MA - 10/20/2023 3:43 PM EDT YOUR RECOVERY It may take a few weeks for your cervix to heal. While your cervix heals, you may have: - Vaginal bleeding (less than a normal menstrual period) - Mild cramping - A brown-black vaginal discharge (similar to coffee grounds) which is a result of the paste used to help stop bleeding from the procedure Do NOT put anything in the vagina for 1 week after your colposcopy if your doctor does a biopsy of your cervix. This includes sex, tampons, and douches. If you have any discomfort, you may take an over the counter pain medication (motrin, advil, ibuprofen, tylenol, etc). If this does not relieve your discomfort, contact your doctor's office for a prescription strength pain medication. It is okay to wear a sanitary pad until the discharge and spotting stops. RISKS Although problems seldom occur with colposcopy, there can be some complications. You may feel faintduring and shortly after the procedure as well as have some bleeding and vaginal discharge after the procedure. There is also a risk of infection after the procedure. These complications are rare andcan be easily treated. You should contact you doctor is you have any of the following: - Heavy bleeding (more than your normal period) - Bleeding with clots - Severe abdominal pain - Fever (more than 100.4F) - Foul smelling vaginal discharge RESULTS If a biopsy was taken, we will have the results of your biopsy in 1-2 weeks. If you do not hear theresults of your biopsy after 2 weeks, please contact your physicians office for the results. Depending on the biopsy results, your doctor will determine your follow up plan which may include further testing or treatments. STAYING HEALTHY After the procedure, you will need to see your doctor for follow up visits during the year. At these visits your doctor will check the health of your cervix with a pap smear. After three normal pap smears, your doctor will allow you to return to having exams once a year. If you have another abnormal pap smear, you may need closer follow up for longer or you may need additional treatment. By making a few lifestyle changes after the procedure, you can help protect the health of your cervix: - Have regular pelvic exams and pap smears as ordered by your doctor. - Stop smoking as smoking increases your risk of developing a cancer of the cervix - If you have more than one sexual partner, limit your number of partners and use condoms to reduceyour risks of STDs. If you have any additional questions, please contact your doctor's office. documented in this encounterMer[facility]-30-[facility] Telephone encounter Note * Telephone Encounter - Emma Cho MD - 09/27/2023 1:32 PM EDT Filed Emma Cho MD [facility]04-30-[facility] Miscellaneous Notes* Telephone Encounter - Emma Cho MD - 09/27/2023 1:32 PM EDT Filed Emma Cho MD * Telephone Encounter - Georgette Roberts RN - 09/27/2023 12:29 PM EDT Patient notified. [place] scheduled. Please file order to link to her appointment. Georgette Roberts RN * Telephone Encounter - Georgette Roberts RN - 09/27/2023 12:02 PM EDT Left message for patient to call office. Georgette Roberts RN * Telephone Encounter - Georgette Roberts RN - 09/27/2023 12:02 PM EDT ----- Message from Emma Cho MD sent at 09/27/2023 11:37 AM EDT ----- Needs colposcopy Emma Cho MD documented in this encounterMer[facility]04-30-2024 Telephone encounter Note * Telephone Encounter - Georgette Roberts RN - 09/27/2023 12:29 PM EDT Patient notified. [place] scheduled. Please file order to link to her appointment. Georgette Roberts RN [facility]04-30-[facility] Telephone encounter Note* Telephone Encounter - Georgette Roberts RN - 09/27/2023 12:02 PM EDT Left message for patient to call office. Georgette Roberts RN [facility]04-[facility] Telephone encounter Note* Telephone Encounter - Georgette Roberts RN - 09/27/2023 12:02 PM EDT ----- Message from Emma Cho MD sent at 09/27/2023 11:37 AM EDT ----- Needs colposcopy Emma Cho MD [facility]04-[facility] History of Present illness Narrative* Tayler Miller MA - 09/20/2023 2:53 PM EDT POPULATION HEALTH NAVIGATION OUTREACH Action/FYI Fax received with current cbc and cmp. Placed in scanning Reason for Outreach Care Gap/HCC or Scheduling Wellness Visits Care Gaps due: Physical Annual Wellness Visit Patient Contacted: Unable or unnecessary to reach patient: textPlushart message sent Navigation Signature: Tayler Miller MA September 20, 2023 2:56 PM documented in this encounterMercy [facility]04-12-2024 History of Present illness Narrative* Emma Cho MD - 09/09/2023 9:17 AM EDT Darius Christianson is a 38 year old female who presents for problem visit. HPI: Patient presents with IUD questions. She is happy with her Mirena IUD as it controls her AUB. Patient denies other concerns today. OB History T5 L5 SAB0 IAB0 Ectopic0 Multiple0 Live Births5 Box Puller History LMP: 01/27/2017 (Approximate), IUD Age at Menarche: Age at First : Age at Menopause: Box Puller History Comments: Sexual Activity: Yes; Male Contraception: Tubal Ligation PAST MEDICAL HISTORY Diagnosis Date Abnormal glandular Papanicolaou smear of cervix Abn. 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 PAST SURGICAL HISTORY Procedure Laterality Date CONIZATION CERVIX W/WO D&C RPR ELTRD EXC LEEP-Cervix F LIGATION TUBAL HYSTEROSCOPY BX ENDOMETRIUM&/POLYPC W/WO D&C 02/17/2017 with mirena insertion FAMILY HISTORY Problem Relation Age of Onset Asthma Mother COPD Mother Lung Cancer Mother No Known Problems Brother No Known Problems Brother No Known Problems Brother Heart Maternal Grandmother Colon Cancer Maternal Grandfather No Known Problems Paternal Grandmother No Known Problems Daughter No Known Problems Daughter No Known Problems Son No Known Problems Son No Known Problems Son Social History Tobacco Use Smoking status: Every Day Packs/day: 0.50 Years: 12.00 Additional pack years: 0.00 Total pack years: 6.00 Types: Cigarettes Smokeless tobacco: Never Vaping Use Vaping Use: Never used Substance Use Topics Alcohol use: No Drug use: No Current Outpatient Medications Medication Sig TRINTELLIX 10 mg tablet Take 10 mg by mouth once daily. (Patient not taking: Reported on 09/09/2023) levonorgestrel (MIRENA) 20 mcg/24 hr (5 years) IUD 1 Each by INTRAUTERINE route as directed. put inin the OR No current facility-administered medications for this visit. Allergies As of Date: 09/09/2023 Allergen Noted Reaction SLOW FE [FERROUS SULFATE DRIED] 03/19/2005 Rash Fully Assessed 09/09/2023 Allergies and current medication updated:Yes EXAM: BP 98/62 Wt 152 lb (68.9kg) LMP 01/27/2017 GENERAL: pleasant, female in no apparent distress PELVIC: external genitalia normal, normal Bartholin's glands, urethra, Neopit's glands, no vulvar lesions, no cervical lesions, physiologic discharge present, normal appearing perineal body and perianal region ASSESSMENT AND PLAN: Encounter Diagnosis ICD-10-CM 1. Encounter for screening for malignant neoplasm of cervix Z12.4 2. Special screening examination for human papillomavirus (HPV) Z11.51 Pap with HPV as patient overdue for screening Mirena IUD needs replaced 01/2025 and patient to follow up then Declines STD testing today Medical Decision Making: Problems: Low: 2+ self-limited or minor problems Data: Unique test(s) ordered: 2 Risk: Low: Low risk from testing/treatment Medical Decision Making Level: 3 - Low Emma Cho MD documented in this encounterMer[facility]06-08-[facility]23 History of Present illness Narrative* Derek Mcduffie MD - 11/04/2022 8:20 AM EDT Patient presents with: Follow Up HPI:This Team Access Model visit is a virtual encounter. It required patient- provider interaction for the medical decision making as documented below. Patient has elected to have a visit through distance medicine I have communicated my name and active licensure. The patient's identity and physical location wereverified at the time of this visit. Either the patient or their legal provider service representative has been informed of the risks and benefits of -- and alternatives to -- treatment through a remote evaluation andconsents to proceed with the evaluation remotely. Had labs, xray and duplex. Was ordered physical therapy, begun on folate and was to have labs for her folate in one month. She never got her repeat folate. She no showed for her therapy appt. See previous hpi: Patient presents today for office visit for B/L leg pain. Refers to her legs feeling tight. Has nerve damage in left foot and it sometimes swells. Pain is pretty constant but is worse at night. Ongoing X 1 month. Has discomfort in both legs. Is in both thighs and in the calves. Has had low back pain on and off for two months. No increased swelling. No redness or warmth. No palpable lumps. Hurts to touch Bothers her a lot and burn at night. Feet are not involved. Nothing makes it better or worse. Resting in the bathtub helps. Feels like her skin "crinkles" when it happens. Is on and off during the day. Worse if standing toolong or moving in the wrong way. Sometimes legs feel numb. Sensations she states are hard to describe. No hx of dvt or family hx of dvt. Has chronic left foot numbness since surgery. Component Latest Ref Rng & Units 07/01/2022 WBC 3.70 - 11.00 k/uL 7.22 RBC 3.90 - 5.20 m/uL 4.71 Hemoglobin 11.5 - 15.5 g/dL 15.5 Hematocrit 36.0 - 46.0 % 44.6 MCV 80.0 - 100.0 fL 94.7 MCH 26.0 - 34.0 pg 32.9 MCHC 30.5 - 36.0 g/dL 34.8 RDW-CV 11.5 - 15.0 % 11.3 (L) Platelet Count 150 - 400 k/uL 197 MPV 9.0 - 12.7 fL 11.9 Neut% % 63.8 Abs Neut (ANC) 1.45 - 7.50 k/uL 4.61 Lymph% % 26.9 Abs Lymph 1.00 - 4.00 k/uL 1.94 Roberts% % 6.9 Abs Roberts <0.87 k/uL 0.50 Eosin% % 1.4 Abs Eosin <0.46 k/uL 0.10 Baso% % 0.7 Abs Baso <0.11 k/uL 0.05 Immature Gran % % 0.3 IMMATURE GRANS (ABS) <0.10 k/uL <0.03 NRBC /100 WBC 0.0 Absolute nRBC <0.01 k/uL <0.01 DTYPE Auto Glucose 74 - 99 mg/dL 78 BUN 7 - 21 mg/dL 13 Creatinine 0.58 - 0.96 mg/dL 0.69 Sodium 136 - 144 mmol/L 139 Potassium 3.7 - 5.1 mmol/L 4.2 Chloride 97 - 105 mmol/L 100 CO2 22 - 30 mmol/L 27 Anion Gap 9 - 18 mmol/L 12 Calcium 8.5 - 10.2 mg/dL 9.5 eGFR >=60 mL/min/1.73m 114 Albumin 3.43 - 5.41 g/dL 4.53 Alpha 1 Globulin 0.18 - 0.43 g/dL 0.33 Alpha 2 Globulin 0.42 - 0.98 g/dL 0.73 Beta Globulin 0.61 - 1.17 g/dL 1.02 Gamma Globulin 0.53 - 1.51 g/dL 1.39 Interpretation (Prot Electro) No definitive M protein is identified on protein electrophoresis. No definitive M protein is identified on protein electrophoresis. M-Protein Location M-Protein Concentration <=0.00 g/dL 0.00 SPE Staff Review Reviewed by Gunnar Couch MD, Ph.D ([id number]) Vitamin B12 232 - 1,245 pg/mL 1,282 (H) Folate >4.7 ng/mL 4.1 (L) WSR 0 - 20 mm/hr 25 (H) Protein, Total 6.3 - 8.0 g/dL 8.0 MEDICATIONS: Current Outpatient Medications Medication Sig folic acid 1 mg tablet Take 1 tablet by mouth once daily. TRINTELLIX 10 mg tablet Take 10 mg by mouth once daily. levonorgestrel (MIRENA) 20 mcg/24 hr (5 years) IUD 1 Each by INTRAUTERINE route as directed. put inin the OR No current facility-administered medications for this visit. ALLERGIES: ALLERGIES Allergen Reactions Slow Fe [Ferrous Dial* Rash PAST MEDICAL HISTORY Diagnosis Date Abnormal glandular Papanicolaou smear of cervix Abn. 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 unspecified disc disorder of lumbar region PAST SURGICAL HISTORY Procedure Laterality Date CONIZATION CERVIX W/WO D&C RPR ELTRD EXC LEEP-Cervix F LIGATION TUBAL HYSTEROSCOPY BX ENDOMETRIUM&/POLYPC W/WO D&C 02/17/2017 with mirena insertion FAMILY HISTORY Problem Relation Age of Onset Asthma Mother COPD Mother Heart Maternal Grandmother Colon Cancer Maternal Grandfather Social History Tobacco Use Smoking status: Every Day Packs/day: 0.50 Years: 12.00 Pack years: 6.00 Types: Cigarettes Smokeless tobacco: Never Substance Use Topics Alcohol use: No Drug use: No Reviewed current medications, allergies, past medical history, surgical history, family history andsocial history today. REVIEW OF SYSTEMS All other reviewed and negative other than HPI. HEALTH MAINTENANCE: Reviewed health maintenance issues today and recommended the following in detail. HEPATITIS B(1 of 3 - 3-dose series) Never done COVID-19 VACCINE(1) Never done PNEUMOCOCCAL(1 - PCV) Never done COLORECTAL CANCER SCREENING Never done DTAP,TDAP,TD(1 - Tdap) Never done PAP TESTING due on 04/28/2021 HPV TESTING due on 04/28/2021 DEPRESSION ASSESSMENT Never done VITALS: LMP 01/27/2017 (Approximate) Patient did not log on and did not answer phone. Left message to call and reschedule documented in this encounterMer[facility]02-02-2023 Miscellaneous Notes* Telephone Encounter - Valery Asif - 07/01/2022 2:40 PM EST Patient informed and verbalized understanding, no questions at this time. Valery Asif * Telephone Encounter - Derek Mcduffie MD - 07/01/2022 2:37 PM EST Let her know duplex was negative. documented in this encounterMercy [facility]02-02-2023 History of Present illness Narrative* Fidelina Zepeda RT(R) - 07/01/2022 11:10 AM EST Radiology Service Progress Note PATIENT NAME: Darius Christianson DATE OF SERVICE: July 01, 2022 TIME: 11:02 AM PATIENT IDENTITY VERIFICATION COMPLETED USING TWO (2) IDENTIFIERS: Name and Date of confirmedby patient verbally. FALL SCREENING: Has the patient had 2 falls in the last year or 1 fall with injury or currently using an Ambulatory Assistive Device (Walker, Cane, Wheelchair, Crutches, etc.)? No PATIENT GENDER DATA: Female. status: : No status: NO. PATIENT RELEVANT IMPLANT DATA REVIEWED: Not Applicable RADIOLOGY DEPARTMENT: General X-ray: Exam(s) Completed: Spine X-Ray(s): Lumbar AP / LAT / L5-S1 PERIPHERAL IV DATA: Not applicable SIGNED BY: RT Chris(R) July 01, 2022 11:02 AM documented in this encounterMercy [facility]02-02-2023 History of Present illness Narrative* Derek Mcduffie MD - 07/01/2022 10:06 AM EST Patient presents with: Bilateral Lower Extremity Pain HPI: Patient presents today for office visit for B/L leg pain. Refers to her legs feeling tight. Has nerve damage in left foot and it sometimes swells. Pain is pretty constant but is worse at night. Ongoing X 1 month. Has discomfort in both legs. Is in both thighs and in the calves. Has had low back pain on and off for two months. No increased swelling. No redness or warmth. No palpable lumps. Hurts to touch Bothers her a lot and burn at night. Feet are not involved. Nothing makes it better or worse. Resting in the bathtub helps. Feels like her skin "crinkles" when it happens. Is on and off during the day. Worse if standing toolong or moving in the wrong way. Sometimes legs feel numb. Sensations she states are hard to describe. No hx of dvt or family hx of dvt. Has chronic left foot numbness since surgery. MEDICATIONS: Current Outpatient Medications Medication Sig Tfhmlqszdfuvpcf-Hpwudkddi-QB (BROMFED DM) 2-30-10 mg/5 mL syrup Take 10 mL by mouth four times daily as needed. albuterol HFA (PROAIR HFA) 90 mcg/actuation inhaler Inhale 2 Puffs as instructed every 6 hours as needed. polyethylene glycol 3350 (MIRALAX) 17 gram/dose powder Take according to bowel prep instructions given by surgery office levonorgestrel (MIRENA) 20 mcg/24 hr (5 years) IUD 1 Each by INTRAUTERINE route as directed. put inin the OR No current facility-administered medications for this visit. ALLERGIES: ALLERGIES Allergen Reactions Slow Fe [Ferrous Dial* Rash PAST MEDICAL HISTORY Diagnosis Date Abnormal glandular Papanicolaou smear of cervix Abn. 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 unspecified disc disorder of lumbar region PAST SURGICAL HISTORY Procedure Laterality Date CONIZATION CERVIX W/WO D&C RPR ELTRD EXC LEEP-Cervix F LIGATION TUBAL HYSTEROSCOPY BX ENDOMETRIUM&/POLYPC W/WO D&C 02/17/2017 with mirena insertion FAMILY HISTORY Problem Relation Age of Onset Asthma Mother COPD Mother Heart Maternal Grandmother Colon Cancer Maternal Grandfather Social History Tobacco Use Smoking status: Every Day Packs/day: 0.50 Years: 12.00 Pack years: 6.00 Types: Cigarettes Smokeless tobacco: Never Substance Use Topics Alcohol use: No Drug use: No Reviewed current medications, allergies, past medical history, surgical history, family history andsocial history today. REVIEW OF SYSTEMS No chest pain or shortness of breath. No gi or gu issues. All other reviewed and negative other than HPI. VITALS: BP 100/52 Pulse 82 Ht 172.7 cm (5' 8") Wt 63.5 kg (140 lb) LMP 01/27/2017 (Approximate) SpO2 99% BMI 21.29 kg/m Last 4 Encounter Wt Readings: Date: Wt: 03/23/2022 63 kg (139 lb) 09/16/2021 68 kg (150 lb) 10/15/2020 64.4 kg (142 lb) 08/28/2020 62.1 kg (137 lb) PHYSICAL EXAMINATION: General appearance: Well appearing, alert, in no acute distress, well-hydrated, well nourished. Skin: Skin color, texture, turgor normal, no suspicious rashes or lesions Head: Normocephalic, no masses, lesions, tenderness or abnormalities BACK: Normal curvature of spine. No spine tenderness. Straight leg test negative. Deep tendon reflexes 2+/4 at patellas. Normal lower extremity strength. Extremities: No deformities, edema, skin discoloration, clubbing or cyanosis. Good capillary refill. , no cords palpable. Does have positive calf tenderness. Musculoskeletal: No joint swelling, deformity, or tenderness Peripheral pulses: Normal, Negative findings: muscle tone normal, decreased monofilament on left foot which is expected since old surgery. ASSESSMENT/PLAN: 1. Pain in both lower extremities - ICD9: 729.5, ICD10: M79.604, M79.605 (primary diagnosis) - presentation is atypical for ddd or radiculopathy but is a possibility. Doubt neuropathy. Will check duplex given exam to rule out dvt. Xray and medrol. Check labs. Discussed risks and benefits of new medication with the patient. Advised them to call if any side effects or questions. Red flags for re-assessment reviewed with patient in detail. Call if symptoms worsen at all . Call me update on Tuesday or sooner prn. Reviewed diagnosis and treatment options in detail. Questions were answered. Patient expressed understanding of treatment plan. - XR LUMBAR GENERAL 3V AP/LAT/L5-S1 - METHYLPREDNISOLONE 4 MG TABLETS IN A DOSE PACK 2. Acute bilateral low back pain, unspecified whether sciatica present - ICD9: 724.2, ICD10: M54.50 - XR LUMBAR GENERAL 3V AP/LAT/L5-S1 - METHYLPREDNISOLONE 4 MG TABLETS IN A DOSE PACK 3. Paresthesia - ICD9: 782.0, ICD10: R20.2 - CBC + DIFF - VITAMIN B12 BLOOD - FOLATE SERUM - SED RATE WESTERGREN - BASIC METABOLIC PNL - PROTEIN ELECTROPHORESIS SERUM W/INTERP - METHYLPREDNISOLONE 4 MG TABLETS IN A DOSE PACK Derek Mcduffie MD documented in this encounterMercy [facility]12-15-2022 Miscellaneous Notes* Telephone Encounter - Maribel Em RN - 05/13/2022 2:50 PM EST Patient notified. Maribel Em RN The following approved medication requests have been transmitted electronically. Requested Prescriptions Signed Prescriptions Disp Refills valACYclovir (VALTREX) 1 gram 5 tablet 3 Sig: Take 1 tablet by mouth once daily for 5 days. Authorizing Provider: JUSTA MEHTA Pharmacy Information Pharmacy Address [id number] [place] [address] * Telephone Encounter - Justa Mehta APRN.CNP - 05/13/2022 2:07 PM EST Order filed. Please notify pt. Justa Mehta APRN.CNP * Telephone Encounter - Georgette Roberts RN - 05/13/2022 1:58 PM EST Patient called with HSV outbreak. Requesting RX. Overdue for annual exam. Appointment given. Patient would like a call back. Georgette Roberts RN documented in this encounterMercy Health [facility]11-22-2022 Miscellaneous Notes* Telephone Encounter - Margaux Mc RN - 04/20/2022 9:23 AM EST Patient calls and notified of results and providers instructions. Patient verbalizes understanding.Transferred to scheduled consult. Margaux Mc RN * Telephone Encounter - Zoie Parada APRN.CNP - 04/19/2022 11:19 PM EST Can please let patient know that we received her MRI results. The lesion on the liver is confirmed to be a hemangioma -- which is what we suspected and is a benign collection of blood vessels. Her gallbladder continues to show some gallstones. If she starts having trouble with RUQ pain, we should have her see gen surgery to follow-up. They also noted some hemangiomas (collection of blood vessels) in the spine. Again, these are benign growths. Generally, if they are not causing problems, nothing may need to be done. But we should consider having her follow-up with spine to see if they have any further recommendations about these.The referral is placed. Please help schedule. Zoie Parada APRN.CNP * Telephone Encounter - Coby Bill RN - 04/19/2022 2:42 PM EST Patient calling and asking for PCP to advise on her recent MRI of Liver. Thank you. documented in this encounterMercy Health [facility]11-21-2022 History of Present illness Narrative* Tayler Tijerian RT(R) - 04/19/2022 9:20 AM EST Radiology Service Progress Note DATE OF SERVICE: April 19, 2022 TIME: 9:58 AM PATIENT IDENTITY VERIFICATION COMPLETED USING TWO (2) STANDARD IDENTIFIERS: Name and Date of confirmed by patient verbally. FALL SCREENING: Has the patient had 2 falls in the last year or 1 fall with injury or currently using an Ambulatory Assistive Device (Walker, Cane, Wheelchair, Crutches, etc.)? No PATIENT GENDER DATA: Female. status: : No status: NO. PATIENT RELEVANT IMPLANT DATA REVIEWED: Yes ALLERGIES: Reviewed and unchanged CONTRAST ALLERGY: NO. EXAM: MRI - CONTRAST TYPE: GROUP II PERIPHERAL IV DATA: Ambulatory: A peripheral IV was started in the Left antecubital site with a Angio cath: 22 gauge. RADIOLOGY DEPARTMENT: MR; Exam(s) Completed: Body: Liver (routine) SIGNATURE: RT Felicita(R) PATIENT NAME: Darius Christianson DATE: April 19, 2022 TIME: 9:58 AM documented in this encounterMercy Health [facility]10-28-2022 Miscellaneous Notes* Telephone Encounter - Yola Chavarria LPN - 03/26/2022 1:07 PM EDT Patient calling to get results. Went over results, notes below from Zoie Parada [facility] with understanding. Assisted with transfer to dental scheduler to get MRI set up. * Telephone Encounter - Zoie Parada APRN.FIOR - 03/26/2022 12:52 PM EDT Can please let patient know that I received her ultrasound results. The lesion does look like the hemangioma, which we discussed in the office. Because of the size and borders or it, they are recommending we get an MRI of the liver to confirm. I went ahead and put the orders in for the MRI. Please help schedule. Incidentally, her gallbladder did have a mixture of some small stones and sludge, but does not lookto be inflamed. However, if she continues with abdominal pain, we can certainly have this further evaluated by general surgery. Zoie Parada APRN.CNP documented in this encounterMercy Health [facility]10-28-2022 History of Present illness Narrative* Mamie Guerrero RT(R) - 03/26/2022 7:30 AM EDT Radiology Service Progress Note PATIENT NAME: Darius Christianson DATE OF SERVICE: March 26, 2022 TIME: 8:03 AM PATIENT IDENTITY VERIFICATION COMPLETED USING TWO (2) IDENTIFIERS: Name and Date of confirmedby patient verbally. FALL SCREENING: Has the patient had 2 falls in the last year or 1 fall with injury or currently using an Ambulatory Assistive Device (Walker, Cane, Wheelchair, Crutches, etc.)? No PATIENT GENDER DATA: Female. status: : No status: N/A PATIENT RELEVANT IMPLANT DATA REVIEWED: Not Applicable RADIOLOGY DEPARTMENT: Ultrasound PERIPHERAL IV DATA: Not applicable SIGNED BY: Mamie Guerrero Rdms March 26, 2022 8:03 AM documented in this encounterMercy Health [facility]10-25-2022 Instructions* Patient Instructions* Zoie Parada APRN.CNP - 03/23/2022 2:36 PM EDT Schedule ultrasound. Start probiotics. Stay well hydrated. Continue miralax 2-3 times daily until good stooling. documented in this encounterMercy Health [facility]10-25-2022 History of Present illness Narrative* Zoie Parada APRN.CNP - 03/23/2022 2:18 PM EDT This is a 36 year old female who presents today with: Patient presents with: ER F/U HISTORY OF PRESENT ILLNESS: Darius Christianson is a 36 year old female. Patient presents with: ER F/U Pt presents today with for ER follow-up. Refers they found spots on her liver and lungs that need followed up on. She went to the emergency room on with progressive right-sided lower abdominal discomfort since the previous day. No vomiting or diarrhea. No urinary symptoms. No fevers. Normal bowel movements. She did have a CT of her abdomen which showed no acute findings. There was a large colonic fecal burden. There is a 2 cm lesion in the right hepatic lobe, likely small hemangioma but cannot be Fullycharacterized on single phase study. Recommend follow-up hepatic ultrasound or multiphasic hepatic CT for further evaluation. She was instructed to start MiraLAX and follow-up for further testing regarding the liver lesion. Refers that she continues to have right abdominal pain. Refers that it is painful and swollen. She reports that she hasn't been stooling regularly. LBM yesterday. Reports that she is taking the MiraLAX twice daily. She did have a colonoscopy on 10/30/2020 which showed a tubular adenoma in the sigmoid colon. She is to repeat the colonoscopy in 3 years. She denies n/v. No heartburn/indigestion. No bloating. Refers that the right abdominal swelling is improved today. PAST MEDICAL HISTORY: PAST MEDICAL HISTORY Diagnosis Date Abnormal glandular Papanicolaou smear of cervix Abn. 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 polyethylene glycol 3350 (MIRALAX) 17 gram/dose powder Take according to bowel prep instructions given by surgery office levonorgestrel (MIRENA) 20 mcg/24 hr (5 years) IUD 1 Each by INTRAUTERINE route as directed. put inin the OR Xkuygmxkgiipklv-Cqaamdvvz-BC (BROMFED DM) 2-30-10 mg/5 mL syrup Take 10 mL by mouth four times daily as needed. No current facility-administered medications for this visit. FAMILY HISTORY Problem Relation Age of Onset Asthma Mother COPD Mother Heart Maternal Grandmother Colon Cancer Maternal Grandfather Social History Tobacco Use Smoking status: Every Day Packs/day: 0.50 Years: 12.00 Pack years: 6.00 Types: Cigarettes Smokeless tobacco: Never Substance Use Topics Alcohol use: No Drug use: No EXAM: BP 100/72 Pulse 83 Resp 18 Wt 63 kg (139 lb) LMP 01/27/2017 (Approximate) SpO2 97% BMI 21.13 kg/m PHYSICAL EXAM: General Appearance: Well appearing, alert, in no acute distress, well-hydrated, well nourished.. Skin: Skin color, texture, turgor normal, no suspicious rashes or lesions. Head: Normocephalic, no masses, lesions, tenderness or abnormalities. Eyes: Anicteric sclera. Extraocular movements are intact. . Lungs: Lungs clear to auscultation. No wheezing, rhonchi, rales.. Heart: RRR without murmur, gallop, or rubs. No ectopy. Abdomen: Abdomen soft. Generalized tenderness most pronounced in the right abdomen. Bowel sounds normal. No masses, organomegaly. No rebound/guarding. Neurologic: Gait normal. ASSESSMENT/PLAN: 1. Generalized abdominal pain - ICD9: 789.07, ICD10: R10.84 (primary diagnosis) Likely related to constipation. She is encouraged to continue MiraLAX 2-3 times a day until she is stooling well. She is also encouraged to start probiotics. Stay well-hydrated. 2. Liver lesion - ICD9: 573.8, ICD10: K76.9 Will get imaging to follow-up on the lesion noted on the ER CAT scan. - US ABD RT UPPER QUADRANT 3. Encounter for immunization - ICD9: V03.89, ICD10: Z23 - INFLUENZA VACCINE QUADRIVALENT 6 MO - 64 YRS IM Discussed treatment plan and patient voices understanding. Patient's questions answered appropriately. Medications and potential side effects were discussed and patient voices understanding. Return to the office as scheduled or as needed for worsening/no improvement. Zoie Parada APRN.LICENSED VETERINARY TECHNICIAN The patient indicates understanding of these issues and agrees with the plan. This note was partially generated using Cybera voice recognition system. Note was reviewed for accuracy. There may be minor misspellings or grammar miscues with Cybera voice recognition. [facility] Discharge instructions Additional Instructions Please continue with warm sitz bath and use the Proctofoam as directed to help try and resolve your external hemorrhoid. If there is no improvement after 7 to 10 days you may need to return to the ER for incision and drainage.[facility] Work Phone: 1(601) 904-652704-21-2022 Miscellaneous Notes* Telephone Encounter - Nika Crews - 09/17/2021 7:56 AM EDT Patient given results and verbalized understanding of instructions given. Nika Crews * Telephone Encounter - Missy Leal APRN.CNP - 09/17/2021 6:55 AM EDT Please notify of negative for influenza and covid test. Continue comfort measures for symptoms as you would for a cold. Any worsening symptoms follow up with PCP or ER. Missy Leal APRN.CNP documented [facility] History of Present illness Narrative* Shanelle Wright PA-C - 09/16/2021 3:15 PM EDT This note was created using TrackViariter. Subjective Darius Christianson is a 36 year old female. HPI Patient presents with chest congestion, fever and shortness of breath over the past day. No vomiting or diarrhea. She denies sick contacts. Denies history of asthma. She is a smoker. She did have COVID in May of this year. Review of Systems Constitutional: Positive for chills, fatigue and fever. HENT: Positive for congestion, rhinorrhea and sore throat. Negative for ear pain. Respiratory: Positive for cough and shortness of breath. Negative for chest tightness and wheezing. Cardiovascular: Negative. Gastrointestinal: Negative. Genitourinary: Negative. Musculoskeletal: Negative. All other systems reviewed and are negative. PAST MEDICAL HISTORY Diagnosis Date Abnormal glandular Papanicolaou smear of cervix Abn. 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 put inin the OR Stnzokpvbmicdkk-Vezwvvgoz-LS (BROMFED DM) 2-30-10 mg/5 mL syrup Take 10 mL by mouth four times daily as needed. 200 mL 0 albuterol HFA (PROAIR HFA) 90 mcg/actuation inhaler Inhale 2 Puffs as instructed every 6 hours as needed. 1 Inhaler 0 polyethylene glycol 3350 (MIRALAX) 17 gram/dose powder Take according to bowel prep instructions given by surgery office (Patient not taking: Reported on 11/10/2020 ) 238 g 0 No current facility-administered medications for this visit. PAST SURGICAL HISTORY Procedure Laterality Date CONIZATION CERVIX W/WO D&C RPR ELTRD EXC LEEP-Cervix F LIGATION TUBAL HYSTEROSCOPY BX ENDOMETRIUM&/POLYPC W/WO D&C 02/17/2017 with mirena insertion FAMILY HISTORY Problem Relation Age of Onset Asthma Mother COPD Mother Heart Maternal Grandmother Colon Cancer Maternal Grandfather Social History Tobacco Use Smoking status: Current Every Day Smoker Packs/day: 0.50 Years: 12.00 Pack years: 6.00 Types: Cigarettes Smokeless tobacco: Never Used Substance Use Topics Alcohol use: No Drug use: No Objective BP 98/64 Pulse 78 Temp 36.4 C (97.6 F) (Tympanic) Resp 18 Wt 68 kg (150 lb) LMP 01/27/2017 (Approximate) SpO2 99% BMI 22.81 kg/m Physical Exam Vitals reviewed. Constitutional: Appearance: Normal appearance. HENT: Head: Normocephalic and atraumatic. Right Ear: Tympanic membrane, ear canal and external ear normal. Left Ear: Tympanic membrane, ear canal and external ear normal. Nose: Congestion present. Mouth/Throat: Mouth: Mucous membranes are moist. Pharynx: Oropharynx is clear. Cardiovascular: Rate and Rhythm: Normal rate and regular rhythm. Heart sounds: Normal heart sounds. Pulmonary: Effort: Pulmonary effort is normal. Breath sounds: Normal breath sounds. Musculoskeletal: Cervical back: Neck supple. Skin: General: Skin is warm and dry. Neurological: General: No focal deficit present. Mental Status: She is alert. Assessment and Plan ASSESSMENT/PLAN: 1. Viral URI - ICD9: 465.9, ICD10: J06.9 - Discussed viral etiology and rationale for treatment. - Symptomatic treatment with prn analgesia - Supportive care with fluids and rest - Follow up in 3-5 days if symptoms persist or sooner if worsening of symptoms - COVID WITH FLUA+B, ROUTINE Shanelle Wright PA-C documented [facility] Hospital Discharge instructions Additional Instructions CT scan normal appendix constipation seen. You have a 2 cm right liver lesion that needs further imagings and work-up as an outpatient. In addition reported you had colonoscopy with a polypectomy that was abnormal from GI 8 months ago from [place]. You need to follow-up with GI for further retesting or see your PCP to help coordinate care. Take MiraLAX as prescribed. [facility] Work Phone: [phone]) 640-814507-23-2014 History of Past illness Narrative* Problem Noted Date Resolved Date UTI (lower urinary tract infection) 12/19/2013 08/30/2016 Supervision of other high-risk (V23.89) 01/21/2010 12/19/2013 Threatened premature labor, antepartum(644.03) 0 01/21/2010 12/19/2013 Irregular menstrual cycle 10/06/20052005 Supervision of other normal 08/31/2005 04/11/2006 documented as of this encounter (statuses as of 09/16/2021) [facility] of Past illness Narrative* Problem Noted Date Resolved Date UTI (lower urinary tract infection) 12/19/2013 08/30/2016 Supervision of other high-risk (V23.89) 01/21/2010 12/19/2013 Threatened premature labor, antepartum(644.03) 0 01/21/2010 12/19/2013 Irregular menstrual cycle 10/06/20052005 Supervision of other normal 08/31/2005 04/11/2006 documented as of this encounter (statuses as of 09/17/2021) [facility] of Past illness Narrative* Problem Noted Date Resolved Date UTI (lower urinary tract infection) 12/19/2013 08/30/2016 Supervision of other high-risk (V23.89) 01/21/2010 12/19/2013 Threatened premature labor, antepartum(644.03) 0 01/21/2010 12/19/2013 Irregular menstrual cycle 10/06/20052005 Supervision of other normal 08/31/2005 04/11/2006 documented as of this encounter (statuses as of 03/23/2022) [facility] of Past illness Narrative* Problem Noted Date Resolved Date UTI (lower urinary tract infection) 12/19/2013 08/30/2016 Supervision of other high-risk (V23.89) 01/21/2010 12/19/2013 Threatened premature labor, antepartum(644.03) 0 01/21/2010 12/19/2013 Irregular menstrual cycle 10/06/20052005 Supervision of other normal 08/31/2005 04/11/2006 documented as of this encounter (statuses as of 03/26/2022) [facility] illness Narrative* Problem Noted Date Resolved Date UTI (lower urinary tract infection) 12/19/2013 08/30/2016 Supervision of other high-risk (V23.89) 01/21/2010 12/19/2013 Threatened premature labor, antepartum(644.03) 0 01/21/2010 12/19/2013 Irregular menstrual cycle 10/06/20052005 Supervision of other normal 08/31/2005 04/11/2006 documented as of this encounter (statuses as of 04/20/2022) [facility] Narrative* Problem Noted Date Resolved Date UTI (lower urinary tract infection) 12/19/2013 08/30/2016 Supervision of other high-risk (V23.89) 01/21/2010 12/19/2013 Threatened premature labor, antepartum(644.03) 0 01/21/2010 12/19/2013 Irregular menstrual cycle 10/06/20052005 Supervision of other normal 08/31/2005 04/11/2006 documented as of this encounter (statuses as of 05/13/2022) [facility] Narrative* Problem Noted Date Resolved Date UTI (lower urinary tract infection) 12/19/2013 08/30/2016 Supervision of other high-risk (V23.89) 01/21/2010 12/19/2013 Threatened premature labor, antepartum(644.03) 0 01/21/2010 12/19/2013 Irregular menstrual cycle 10/06/20052005 Supervision of other normal 08/31/2005 04/11/2006 documented as of this encounter (statuses as of 07/01/2022) [facility] Narrative* Problem Noted Date Resolved Date UTI (lower urinary tract infection) 12/19/2013 08/30/2016 Supervision of other high-risk (V23.89) 01/21/2010 12/19/2013 Threatened premature labor, antepartum(644.03) 0 01/21/2010 12/19/2013 Irregular menstrual cycle 10/06/20052005 Supervision of other normal 08/31/2005 04/11/2006 documented as of this encounter (statuses as of 07/01/2022) [facility] Narrative* Problem Noted Date Resolved Date UTI (lower urinary tract infection) 12/19/2013 08/30/2016 Supervision of other high-risk (V23.89) 01/21/2010 12/19/2013 Threatened premature labor, antepartum(644.03) 0 01/21/2010 12/19/2013 Irregular menstrual cycle 10/06/20052005 Supervision of other normal 08/31/2005 04/11/2006 documented as of this encounter (statuses as of 11/04/2022) [facility] Narrative* Problem Noted Date Diagnosed Date Resolved Date UTI (lower urinary tract infection) 12/19/2013 08/30/2016 Supervision of other high-ri sk (V23.89) 01/21/2010 12/19/2013 Threatened premature labor, antepartum(644.03) 01/21/2010 12/19/2013 Irregular menstrual cycle 10/06/2005 Supervision of other normal 08/31/2005 04/11/2006 documented as of this encounter (statuses as of 04/03/2023) [facility] illness Narrative* Problem Noted Date Diagnosed Date Resolved Date UTI (lower urinary tract infection) 12/19/2013 08/30/2016 Supervision of other high-ri sk (V23.89) 01/21/2010 12/19/2013 Threatened premature labor, antepartum(644.03) 01/21/2010 12/19/2013 Irregular menstrual cycle 10/06/2005 Supervision of other normal 08/31/2005 04/11/2006 documented as of this encounter (statuses as of 09/09/2023) [facility] + Plan note No data available for this section [facility] Evaluation note* Diagnosis Viral URI- Primary Acute upper respiratory infections of unspecified site documented in this encounter [facility] noteNo assessment information availableWC[facility] Work Phone: Evaluation note* Diagnosis Generalized abdominal pain- Primary Abdominal pain, generalized Liver lesion Other specified disorders of liver Encounter for immunization Need for other specified prophylactic vaccination against single bacterial disease [facility]* Diagnosis Liver lesion- Primary Other specified disorders of liver [facility]* Diagnosis Hemangioma of spine- Primary Hemangioma of other sites [facility]* Diagnosis Recurrent genital herpes simplex type 2 infection Genital herpes, unspecified Vulvar lesion Other specified noninflammatory disorder of vulva and perineum [facility]* Diagnosis Pain in both lower extremities- Primary Acute bilateral low back pain, unspecified whether sciatica present Paresthesia Disturbance of skin sensation documented [facility]* Diagnosis NO SHOW- Primary documented [facility]* Diagnosis Liver lesion Other specified disorders of liver [facility]* Diagnosis Encounter for screening for malignant neoplasm of cervix- Primary Screening for malignant neoplasm of the cervix Special screening examination for human papillomavirus (HPV) Abnormal uterine bleeding (AUB) documented in this encounter [facility] note* Diagnosis ASCUS with positive high risk HPV cervical- Primary Cervical high risk human papillomavirus (HPV) DNA test positive documented in this encounter [facility] note* Diagnosis ASCUS with positive high risk HPV cervical- Primary Cervical high risk human papillomavirus (HPV) DNA test positive documented in this encounter [facility] note* Diagnosis Pain in both lower extremities Acute bilateral low back pain, unspecified whether sciatica present [facility]* Diagnosis Encounter for screening mammogram for breast cancer documented in this encounter [facility] note* Diagnosis Acute cough- Primary Acute cough documented in this encounter [facility] note* Diagnosis Acute cough documented in this encounter [facility] for referral (narrative)* Diagnostic Procedure Only (Routine) - Authorized Specialty Diagnoses / Procedures Referred By Natasha wagner Referred To Contact US IMAGING Diagnoses Liver lesion Procedures US ABD RT UPPER QUADRANT US ABDOMINAL REAL TIME W/IMAGE LIMITED Zoie Parada APRN.CNP [address] [place] [address] Us Imaging Referral ID Status Reason Start Date Expiration Date Visits Requested Visits Authorized [id number] Authorized Auto-Generat ed Referral 2 04/22/2023 1 1 [facility] for referral (narrative)* Outpatient Procedure (Urgent) - Closed Specialty Diagnoses / Procedures Referred By Natasha wagner Referred To Contact [facility] Diagnoses Pain in both lower extremities Procedures US LEG VEIN DVT [facility] DUP-SCAN XTR VEINS COMPLETE BILATERAL STUDY Derek Mcduffie MD [address] [place] [address] [facility] [place] [address] [place] [address] Referral ID Status Reason Start Date Expiration Date V isits Requested Visits Authorized [id number] Closed Auto-Generate d Referral 07/01/2022 07/01/2023 1 1 * Diagnostic Procedure Only (Routine) - Closed Specialty Diagnoses / Procedures Referred By Contac t Referred To Contact XR IMAGING Diagnoses Pain in both lower extremities Acute bilateral low back pain, unspecified whether sciatica present Procedures XR LUMBAR GENERAL 3V AP/LAT/L5-S1 RADEX SPINE LUMBOSACRAL 2/3 VIEWS Derek Mcduffie MD [address] [place] [address] Xr Imaging Referral ID Status Reason Start Date Expiration Date V isits Requested Visits Authorized [id number] Closed Auto-Generate d Referral 07/01/2022 07/31/2023 1 1 [facility] for referral (narrative)* Diagnostic Procedure Only (Routine) - Closed Specialty Diagnoses / Procedures [facility] Referred To Contact US IMAGING Diagnoses Liver lesion Procedures US ABD RT UPPER QUADRANT US ABDOMINAL REAL TIME W/IMAGE LIMITED Zoie Parada, DOUG.LICENSED VETERINARY TECHNICIAN [address] [place] [address] [place] [address] Referral ID Status Reason Start Date Expiration Date V isits Requested Visits Authorized [id number] Closed Auto-Generate d Referral 03/23/2022 04/22/2023 1 1 [facility] for referral (narrative)* Outpatient Procedure (Routine) - Authorized Specialty Diagnoses / Procedures Referred By Contac t Referred To Contact [facility] Diagnoses ASCUS with positive high risk HPV cervical Procedures COLPOSCOPY COLPOSCOPY CERVIX BX CERVIX & ENDOCRV CURRETAGE Emma Cho MD [address] [place] [address] [facility] [address] [place] [address] Referral ID Status Reason Start Date Expiration Date Visits Requested Visits Authorized [id number] Authorized Auto-Generat ed Referral 09/27/2023 09/26/2024 1 1 [facility] for referral (narrative)* Outpatient Procedure (Routine) - Pending Review Specialty Diagnoses / Procedures Referred By Natasha t Referred To Contact [facility] Diagnoses ASCUS with positive high risk HPV cervical Procedures COLPOSCOPY COLPOSCOPY CERVIX BX CERVIX & ENDOCRV CURRETAGE Emma Cho MD [address] [place] [address] [facility] [address] [place] [address] Referral ID Status Reason Start Date Expiration Date Visits Requested Visits Authorized [id number] Pending Review Auto-Generat ed Referral 10/20/2023 10/19/2024 1 1 [facility] for referral (narrative)* Diagnostic Procedure Only (Routine) - Closed Specialty Diagnoses / Procedures Referred By Contkateryna t Referred To Contact XR IMAGING Diagnoses Pain in both lower extremities Acute bilateral low back pain, unspecified whether sciatica present Procedures XR LUMBAR GENERAL 3V AP/LAT/L5-S1 RADEX SPINE LUMBOSACRAL 2/3 VIEWS Derek Mcduffie MD [address] [place] [address] [place] [address] Referral ID Status Reason Start Date Expiration Date V isits Requested Visits Authorized [id number] Closed Auto-Generate d Referral 07/01/2022 07/31/2023 1 1 [facility] for visit Narrative* Diagnostic Procedure Only (Routine) - Closed Specialty Diagnoses / Procedures [facility] Referred To Contact US IMAGING Diagnoses Liver lesion Procedures US ABD RT UPPER QUADRANT US ABDOMINAL REAL TIME W/IMAGE LIMITED Zoie Parada APRN.LICENSED VETERINARY TECHNICIAN [address] [place] [address] [place] [address] Referral ID Status Reason Start Date Expiration Date V isits Requested Visits Authorized [id number] Closed Auto-Generate d Referral 03/23/2022 04/22/2023 1 1 [facility] for visit Narrative* Outpatient Procedure (Routine) - Closed Specialty Diagnoses / Procedures Referred By Contac t Referred To Contact [facility] Diagnoses ASCUS with positive high risk HPV cervical Procedures COLPOSCOPY COLPOSCOPY CERVIX BX CERVIX & ENDOCRV CURRETAGE Emma Cho MD [address] [place] [address] [facility] [address] [place] [address] Referral ID Status Reason Start Date Expiration Date V isits Requested Visits Authorized [id number] Closed Auto-Generate d Referral 09/27/2023 09/26/2024 1 1 [facility] for visit Narrative* Diagnostic Procedure Only (Routine) - Closed Specialty Diagnoses / Procedures Referred By Natasha wagner Referred To Contact XR IMAGING Diagnoses Pain in both lower extremities Acute bilateral low back pain, unspecified whether sciatica present Procedures XR LUMBAR GENERAL 3V AP/LAT/L5-S1 RADEX SPINE LUMBOSACRAL 2/3 VIEWS Derek Mcduffie MD [address] [place] [address] [place] [address] Referral ID Status Reason Start Date Expiration Date V isits Requested Visits Authorized [id number] Closed Auto-Generate d Referral 07/01/2022 07/31/2023 1 1 [facility] Summary Purpose Family History No Family History Records Found Relationship Condition Age at Onset Recorded Date/T nadya Unknown Family History?Hypertension Unknown March 21, 2014 1:08am Family History?Hypertension Unknown October 26, 2018 5:36pm Advance Directives No Advanced Directives Records FoundDocuments on File Type Date Recorded Patient Paving Block Cutter Expl anation Advance Directive(s) 10/30/2020 10:11 AM Advance Directive Response Recorded Date/ Time Advance Directives No March 21, 2014 1:19am Living Will No January 03, 2022 9:24pm Power of Oral Hygienist No January 03 9:24pm Advance Directive Response Recorded Date/ Time Advance Directives No March 21, 2014 1:19am Living Will No March 19 9:12pm Power of Oral Hygienist No March 19, 2022 9:12pm Health Concerns Infection Onset Date Last Indicated Resolved Time COVID-19 Rule-Out 09/16/2021 09/16/2021 Infection Onset Date Last Indicated Resolved Time COVID-19 Rule-Out 09/16/2021 09/16/2021 09/17/2021 1:30 AM EDT Chief Complaint and Reason for Visit Chief Complaint PAIN OTHER Chief Complaint PAIN OTHER ABD PAIN Reason for Referral Specialty Diagnoses / Procedures Referred By Contac t Referred To Contact MR IMAGING Diagnoses Liver lesion Procedures MRI LIVER WO/W IVCON MRI ABDOMEN W/O & W/CONTRAST MATERIAL Zoie Parada, BUYER AGENT.LICENSED VETERINARY TECHNICIAN [address] [place] [address] Mr Imaging Referral ID Status Reason Start Date Expiration Date Visits Requested Visits Authorized [id number] Additional Clinical Info Needed Auto-Generat ed Referral 04/25/2023 1 1 Specialty Diagnoses / Procedures Referred By Contac t Referred To Contact [facility] [place] Diagnoses Hemangioma of spine Procedures [facility] OFFICE/OUTPATIENT [facility] 60-74 MINUTES Derek Mcduffie MD [address] [place] [address] Referral ID Status Reason Start Date Expiration Date Visits Requested Visits Authorized [id number] Authorized PCP Requested Referral 2 04/19/2023 1 1 Specialty Diagnoses / Procedures Referred By Contac t Referred To Contact MR IMAGING Diagnoses Liver lesion Procedures MRI LIVER WO/W IVCON MRI ABDOMEN W/O & W/CONTRAST MATERIAL Zoie Parada, DOUG.LICENSED VETERINARY TECHNICIAN [address] [place] [address] [place] [address] Referral ID Status Reason Start Date Expiration Date V isits Requested Visits Authorized [id number] Closed Auto-Generate d Referral 03/26/2022 06/02/2022 1 1 Additional Source Comments INFORMATION SOURCE (unrecogn ized section and content) DATE CREATED AUTHOR 03/15/2018 [facility] DATE CREATED AUTHOR AUTHOR'S ORGANIZ ATION 03/16/2018 [employer] DATE CREATED AUTHOR AUTHOR'S ORGANIZ ATION 04/30/2018 [facility] ([place]) DATE CREATED AUTHOR AUTHOR'S ORGANIZ ATION 04/20/2019 [facility] DATE CREATED AUTHOR AUTHOR'S ORGANIZ ATION 07/19/2020 [facility] DATE CREATED AUTHOR AUTHOR'S ORGANIZ ATION 11/04/2020 [facility] DATE CREATED AUTHOR AUTHOR'S ORGANIZ ATION 09/29/2022 [facility] DATE CREATED AUTHOR AUTHOR'S ORGANIZ ATION 07/06/2024 [facility] DATE CREATED AUTHOR AUTHOR'S ORGANIZ ATION 03/16/2025 [facility] DATE CREATED AUTHOR AUTHOR'S ORGANIZ ATION 04/09/[address] [facility] Source Comments (unrecognize d section and content) In the event this informatio n is protected by the Federal Confidentiality of Alcohol and Drug Abuse Patient Records regulations: The Federal rules restrict any use of the information to criminally investigate or prosecute any alcohol or drug abuse patient.[facility] the event this information is protected by the Federal Confidentiality of Alcohol and Drug Abuse Patient Records regulations: The Federal rules restrict any use of the information to criminally investigate or prosecute any alcohol or drug abuse patient.[facility] the event this information is protected by the Federal Confidentiality of Alcohol and Drug Abuse Patient Records regulations: The Federal rules restrict any use of the information to criminally investigate or prosecute any alcohol or drug abuse patient.[facility] Hospital[facility] the event this information is protected by the Federal Confidentiality of Alcohol and Drug Abuse Patient Records regulations: The Federal rules restrict any use of the information to criminally investigate or prosecute any alcohol or drug abuse patient.[facility] the event this information is protected by the Federal Confidentiality of Alcohol and Drug Abuse Patient Records regulations: The Federal rules restrict any use of the information to criminally investigate or prosecute any alcohol or drug abuse patient.[facility] Hospital[facility] the event this information is protected by the Federal Confidentiality of Alcohol and Drug Abuse Patient Records regulations: The Federal rules restrict any use of the information to criminally investigate or prosecute any alcohol or drug abuse patient.[facility] Hospital[facility] the event this information is protected by the Federal Confidentiality of Alcohol and Drug Abuse Patient Records regulations: The Federal rules restrict any use of the information to criminally investigate or prosecute any alcohol or drug abuse patient.[facility] Hospital[facility] the event this information is protected by the Federal Confidentiality of Alcohol and Drug Abuse Patient Records regulations: The Federal rules restrict any use of the information to criminally investigate or prosecute any alcohol or drug abuse patient.[facility] Hospital[facility] the event this information is protected by the Federal Confidentiality of Alcohol and Drug Abuse Patient Records regulations: The Federal rules restrict any use of the information to criminally investigate or prosecute any alcohol or drug abuse patient.[facility] Hospital[facility] the event this information is protected by the Federal Confidentiality of Alcohol and Drug Abuse Patient Records regulations: The Federal rules restrict any use of the information to criminally investigate or prosecute any alcohol or drug abuse patient.[facility] Hospital[facility] the event this information is protected by the Federal Confidentiality of Alcohol and Drug Abuse Patient Records regulations: The Federal rules restrict any use of the information to criminally investigate or prosecute any alcohol or drug abuse patient.[facility] Hospital[facility] the event this information is protected by the Federal Confidentiality of Alcohol and Drug Abuse Patient Records regulations: The Federal rules restrict any use of the information to criminally investigate or prosecute any alcohol or drug abuse patient.[facility] HospitalIn the event this information is protected by the Federal Confidentiality of Alcohol and Drug Abuse Patient Records regulations: The Federal rules restrict any use of the information to criminally investigate or prosecute any alcohol or drug abuse patient.[facility] HospitalIn the event this information is protected by the Federal Confidentiality of Alcohol and Drug Abuse Patient Records regulations: The Federal rules restrict any use of the information to criminally investigate or prosecute any alcohol or drug abuse patient.[facility] HospitalIn the event this information is protected by the Federal Confidentiality of Alcohol and Drug Abuse Patient Records regulations: The Federal rules restrict any use of the information to criminally investigate or prosecute any alcohol or drug abuse patient.[facility] HospitalIn the event this information is protected by the Federal Confidentiality of Alcohol and Drug Abuse Patient Records regulations: The Federal rules restrict any use of the information to criminally investigate or prosecute any alcohol or drug abuse patient.[facility] HospitalIn the event this information is protected by the Federal Confidentiality of Alcohol and Drug Abuse Patient Records regulations: The Federal rules restrict any use of the information to criminally investigate or prosecute any alcohol or drug abuse patient.[facility] HospitalIn the event this information is protected by the Federal Confidentiality of Alcohol and Drug Abuse Patient Records regulations: The Federal rules restrict any use of the information to criminally investigate or prosecute any alcohol or drug abuse patient.[facility] HospitalIn the event this information is protected by the Federal Confidentiality of Alcohol and Drug Abuse Patient Records regulations: The Federal rules restrict any use of the information to criminally investigate or prosecute any alcohol or drug abuse patient.[facility] Reason for Visit (unrecogniz ed section and content) Reason Comments Fever fever, chest congest ion and SOB x 1 day Reason Comments Results Reason Comments ER F/U Reason Comments Results Reason Comments Patient Request Reason Onset Date Comments Refill Request 05/13/2022 Reason Comments Bilateral Lower Extremity Pain Reason Comments Patient Update Reason Comments Follow Up Specialty Diagnoses / Procedures Referred By Natasha wagner Referred To Contact MR IMAGING Diagnoses Liver lesion Procedures MRI LIVER WO/W IVCON MRI ABDOMEN W/O & W/CONTRAST MATERIAL Zoie Parada, DOUG.LICENSED VETERINARY TECHNICIAN [address] [place] [address] Mr Imaging [id number] Referral ID Status Reason Start Date Expiration Date V isits Requested Visits Authorized [id number] Closed Auto-Generate d Referral 03/26/2022 06/02/2022 1 1 Reason Comments Contraception Reason Comments Cough Chest congestion,tig htness, pressure, rib pain on bilat side, nasal congestion runny nose x 1 week Care Teams (unrecognized sec tion and content) Rn Care Manager Relationship Specialty Start Date End Date Derek Mcduffie MD [address] [place], [place] [id number] PCP - General Family Practice 03/22/13 Rn Care Manager Relationship Specialty Start Date End Date Derek Mcduffie MD [address] [place], [place] [id number] PCP - General Family Practice 03/22/13 Rn Care Manager Relationship Specialty Start Date End Date Derek Mcduffie MD [address] [place] [address] PCP - General Family Medicine 03/22/13 Rn Care Manager Relationship Specialty Start Date End Date Derek Mcduffie MD [address] [place] [address] PCP - General Family Medicine 03/22/13 Rn Care Manager Relationship Specialty Start Date End Date Derek Mcduffie MD [address] [place] [address] PCP - General Family Medicine 03/22/13 Rn Care Manager Relationship Specialty Start Date End Date Derek Mcduffie MD [address] [place] [address] PCP - General Family Medicine 03/22/13 Rn Care Manager Relationship Specialty Start Date End Date Derek Mcduffie MD [address] [place] [address] PCP - General Family Medicine 03/22/13 Rn Care Manager Relationship Specialty Start Date End Date Derek Mcduffie MD [address] [place] [address] PCP - General Family Medicine 03/22/13 Rn Care Manager Relationship Specialty Start Date End Date Derek Mcduffie MD [address] [place] [address] PCP - General Family Medicine 03/22/13 Rn Care Manager Relationship Specialty Start Date End Date Derek Mcduffie MD [address] [place] [address] PCP - General Family Medicine 03/22/13 Rn Care Manager Relationship Specialty Start Date End Date Derek Mcduffie MD [address] [place] [address] PCP - General Family Medicine 03/22/13 Rn Care Manager Relationship Specialty Start Date End Date Derek Mcduffie MD [address] [place] [address] PCP - General Family Medicine 03/22/13 Rn Care Manager Relationship Specialty Start Date End Date Derek Mcduffie MD [address] [place] [address] PCP - General Family Medicine 03/22/13 Rn Care Manager Relationship Specialty Start Date End Date Derek Mcduffie MD [address] [place] [address] PCP - General Family Medicine 03/22/13 Rn Care Manager Relationship Specialty Start Date End Date Derek Mcduffie MD [address] [place] [address] PCP - General Family Medicine 03/22/13 Zoie Parada, BUYER AGENT.LICENSED VETERINARY TECHNICIAN [address] [place] [address] Director Talent Acquisition Family Medicine 05/07/24 Meli Escamilla BUYER AGENT.LICENSED VETERINARY TECHNICIAN [address] [place] [address] Director [employer]ent Acquisition Family Medicine 05/07/24 Rn Care Manager Relationship Specialty Start Date End Date Derek Mcduffie MD [address] [place] [address] PCP - General Family Medicine 03/22/13 Zoie Parada, BUYER AGENT.LICENSED VETERINARY TECHNICIAN [address] [place] [address] Director Talent Acquisition Family Medicine 05/07/24 Meli Escamilla APRN.LICENSED VETERINARY TECHNICIAN [address] [place], [place] [address] [facility] 05/07/24 Rn Care Manager Relationship Specialty Start Date End Date Derek Mcduffie MD [address] [place], [place] [id number] PCP - General Family Medicine 03/22/13 Zoie Parada APRN.LICENSED VETERINARY TECHNICIAN [address] [place], [place] [phone] [facility] 05/07/24 Meli Escamilla APRN.LICENSED VETERINARY TECHNICIAN [address] [place], [place] [id number] [facility] 05/07/24 Goals (unrecognized section and content) Goals may be documented in a n alternate sectionGoals may be documented in an alternate section No data available for this section FOR RECORDS PERTAINING TO PATIENTS WHO ARE OR HAVE BEEN ENROLLED IN A CHEMICAL DEPENDENCY/SUBSTANCEABUSE PROGRAM, SOME INFORMATION MAY BE OMITTED. This clinical summary was aggregated from multiple sources. Caution should be exercised in using it in the provision of clinical care. This summary normalizes information from multiple sources, and as a consequence, information in this document may materially change the coding, format and clinical context of patient data. In addition, data may be omitted in some cases. CLINICAL DECISIONS SHOULD BE BASED ON THE PRIMARY CLINICAL RECORDS. [facility] [employer] [facility]. provides no warranty or guarantee of the accuracy or completeness of information in this document.
[2025-04-10 22:22] VITALS: BP 95/74; PULSE 74; RESP 18; TEMP 36.7; O2SAT 95
== END 2025-04-10 22:25 | disposition home or self-care (01) ==
PROVIDERS: Emergency Provider Emergency Medicine; PCP Family Medicine; Visit Provider Emergency Medicine
DX: K80.20 Calculus of gallbladder without cholecystitis without obstruction (principal); J44.9 Chronic obstructive pulmonary disease, unspecified; F17.210 Nicotine dependence, cigarettes, uncomplicated
CPT/HCPCS: 76705; 80053; 83690; 84703; 85025; 96374; 96375; 96376; 99282; A4216; J2405